=== PATIENT | male | born 1955 | race Caucasian/White ===

== ENCOUNTER 2022-06-15 10:28 | Outpatient (REF) | payer SELFPAY ==
[2022-06-15 10:43] LABS: MANUAL DIFF FLAG NO
[2022-06-15 10:58] LABS: Basophils Absolute Auto 0.1 X10*3/uL (0.0-0.2); Basophils Percent Auto 0.7 % (0-2); Eosinophils Absolute Auto 0.8 X10*3/uL (0.0-0.4); Eosinophils Percent Auto 9.7 % (0-4); Hematocrit 41.3 % (42.0-52.0); Imm Gran Abs Auto 0.03 X10*3/uL (0.00-0.03); Imm Gran Pct Auto 0.3 % (0.0-0.4); Lymphocytes Absolute Auto 2.9 X10*3/uL (1.2-4.9); Lymphocytes Percent Auto 33.3 % (20-40); Mean Corpuscular HGB Conc 33.9 g/dl (31.0-36.0); Mean Corpuscular Hemoglobin 30.9 pg (27.0-33.0); Mean Corpuscular Volume 91.2 fL (80.0-98.0); Mean Platelet Volume 9.9 fL (9.4-12.4); Monocytes Percent Auto 11.5 % (2-11); Neutrophils Absolute Auto 3.8 x10*3/uL (2.0-8.3); Neutrophils Percent Auto 44.5 % (45-73); Platelet Count 248 X10*3/uL (160-400); Red Blood Count 4.53 X10*6/uL (4.60-5.80); Red Cell Distribution Width 12.6 % (11.0-16.0); White Blood Count 8.6 X10*3/uL (4.8-10.8)
[2022-06-15 11:16] LABS: Alanine Aminotransferase 25 U/L (0-40); Alkaline Phosphatase 71 U/L (39-117); Anion Gap 15 (12-20); Aspartate Amino Transferase 21 U/L (5-37); Bilirubin Direct 0.2 mg/dL (0.0-0.5); Bilirubin Total 0.5 mg/dL (0.0-1.0); Blood Urea Nitrogen 15 mg/dL (9-16); Calcium 8.5 mg/dL (8.4-10.2); Carbon Dioxide 22 mmol/L (22-29); Chloride 105 mmol/L (96-108); Estimated Glomerular Filt Rate > 60; Glucose Random 101 mg/dL (60-115); Potassium 4.2 mmol/L (3.3-5.1); Sodium 138 mmol/L (135-145); Total Protein 7.1 g/dL (6.5-8.0)
[2022-06-15 11:34] LABS: Appearance Urine CLEAR; Color Urine YELLOW; Glucose Urine UA NEG (NEG); Leukocyte Esterase Urine NEG (NEG); Nitrite Urine NEG (NEG); Specific Gravity - Urine 1.025 (1.005-1.025); Urine Blood NEG (NEG); Urine Ketones NEG (NEG); Urine Protein NEG (NEG-TRACE)
[2022-06-15 11:49] LABS: RBC Urine 0-2 /HPF (0); WBC Urine 0-2 /HPF (0-4)
[2022-06-16 11:07] LABS: Free Prostate Spec Ag 0.2 ng/mL; Percent Free Prostate Spec Ag 29 % (calc) (>25); Prostate Specific Ag Total 0.7 ng/mL (< OR = 4.0)
[2022-06-16 21:18] LABS: Lyme Abs Screen <0.90 index
== END 2022-06-15 10:29 | disposition home or self-care (01) ==
LOC: HO.LNP 10:28
PROVIDERS: Visit Provider Internal Medicine
DX: Z00.00 Encounter for general adult medical examination without abnormal findings (principal); Z12.5 Encounter for screening for malignant neoplasm of prostate; T14.8XXA Other injury of unspecified body region, initial encounter; W57.XXXA Bitten or stung by nonvenomous insect and other nonvenomous arthropods, initial encounter; E78.00 Pure hypercholesterolemia, unspecified
CPT/HCPCS: 80053; 81001; 82248; 84154; 85025; 86617; 86618

== ENCOUNTER 2022-07-03 10:56 | Outpatient (REF) | payer BC, SELFPAY ==
[2022-07-03 11:30] LABS: Cholesterol 206 mg/dL; HDL Cholesterol 38 mg/dL; LDL Cholesterol Calculated 135 mg/dl; Triglycerides 166 mg/dL
[2022-07-03 12:37] LABS: Reflex LDLD? No
== END 2022-07-03 10:57 | disposition home or self-care (01) ==
LOC: HO.LNP 10:56
PROVIDERS: Visit Provider Internal Medicine
DX: E78.00 Pure hypercholesterolemia, unspecified (principal)
CPT/HCPCS: 80061

== ENCOUNTER 2023-08-27 11:23 | Outpatient (REF) | payer BC, SELFPAY ==
[2023-08-27 11:27] LABS: MANUAL DIFF FLAG NO
[2023-08-27 12:10] LABS: Basophils Absolute Auto 0.1 X10*3/uL (0.0-0.2); Basophils Percent Auto 0.6 % (0-2); Eosinophils Absolute Auto 0.5 X10*3/uL (0.0-0.4); Eosinophils Percent Auto 5.5 % (0-4); Hematocrit 43.3 % (42.0-52.0); Hemoglobin 14.8 g/dl (14.0-18.0); Imm Gran Abs Auto 0.02 X10*3/uL (0.00-0.03); Imm Gran Pct Auto 0.2 % (0.0-0.4); Lymphocytes Absolute Auto 2.4 X10*3/uL (1.2-4.9); Mean Corpuscular HGB Conc 34.2 g/dl (31.0-36.0); Mean Corpuscular Hemoglobin 32.3 pg (27.0-33.0); Mean Corpuscular Volume 94.5 fL (80.0-98.0); Monocytes Absolute Auto 1.1 X10*3/uL (0.1-1.2); Monocytes Percent Auto 12.7 % (2-11); Neutrophils Absolute Auto 4.8 x10*3/uL (2.0-8.3); Platelet Count 242 X10*3/uL (160-400); Red Blood Count 4.58 X10*6/uL (4.60-5.80); Red Cell Distribution Width 12.5 % (11.0-16.0)
[2023-08-27 12:11] LABS: Appearance Urine Clear; Color Urine Yellow; Glucose Urine UA Negative (Negative); Leukocyte Esterase Urine Negative (Negative); Nitrite Urine Negative (Negative); Specific Gravity - Urine 1.015 (1.005-1.025); Urine Blood Negative (Negative); Urine Ketones Negative (Negative); Urine Protein Negative (Neg-Trace)
[2023-08-27 12:22] LABS: Bacteria Urine None Seen (None Seen); Hyaline Casts Urine 0-2 /LPF (0-2); RBC Urine 0-2 /HPF (0-2); Squamous Epithelial Cell Urine 0-2 /HPF (0-2); WBC Urine 0-5 /HPF (0-5)
[2023-08-27 12:30] LABS: Alanine Aminotransferase 27 U/L (0-40); Albumin Level 4.2 g/dL (3.5-5.0); Alkaline Phosphatase 70 U/L (39-117); Anion Gap 12 (12-20); Aspartate Amino Transferase 24 U/L (5-37); Bilirubin Total 0.5 mg/dL (0.0-1.0); Blood Urea Nitrogen 12 mg/dL (9-16); Calcium 9.4 mg/dL (8.4-10.2); Carbon Dioxide 26 mmol/L (22-29); Chloride 104 mmol/L (96-108); Cholesterol 176 mg/dL (<200); Estimated Glomerular Filt Rate > 60; Glucose Fasting 99 mg/dL (60-99); HDL Cholesterol 41 mg/dL (>40); LDL Cholesterol Calculated 113 mg/dL (<100); Potassium 4.2 mmol/L (3.3-5.1); Sodium 138 mmol/L (135-145); Total Protein 7.7 g/dL (6.5-8.0); Triglycerides 112 mg/dL (<150)
[2023-08-27 12:54] LABS: PSA,Total (Free>4and<10) 0.97 ng/mL (0.00-4.00)
== END 2023-08-27 11:24 | disposition home or self-care (01) ==
LOC: HO.LNP 11:23
PROVIDERS: Visit Provider Internal Medicine
DX: Z00.00 Encounter for general adult medical examination without abnormal findings (principal); E78.00 Pure hypercholesterolemia, unspecified; N40.0 Benign prostatic hyperplasia without lower urinary tract symptoms; Z12.5 Encounter for screening for malignant neoplasm of prostate
CPT/HCPCS: 80053; 80061; 81001; 84153; 85025

== ENCOUNTER 2023-11-26 15:43 | Outpatient (REF) | payer BC, SELFPAY ==
--- NOTE | ~2023-11-26 | XR_ITS ---
EXAMINATION: XR CHEST CLINICAL INFORMATION: Tachycardia. COMPARISON: None available. TECHNIQUE: 3 views of the chest. FINDINGS: Degenerative changes in the thoracic spine. Heart size is normal. No pleural effusion. There is no gross pneumothorax. Mild prominence of the central hilar regions, left greater than right, likely vascular. XR/XR chest 2V IMPRESSION: 1. Mild prominence of the central hilar regions, left greater than right, likely vascular. Direct correlation with prior images is recommended and if prior images are provided, an addendum will be dictated. 2. In the absence of prior images, correlation with clinical exam recommended to determine further management including possible additional imaging with noncontrast enhanced CT scan.
[2023-11-26 16:11] LABS: MANUAL DIFF FLAG NO
[2023-11-26 16:26] LABS: Basophils Absolute Auto 0.1 X10*3/uL (0.0-0.2); Basophils Percent Auto 0.8 % (0-2); Eosinophils Absolute Auto 0.4 X10*3/uL (0.0-0.4); Eosinophils Percent Auto 4.6 % (0-4); Hematocrit 41.5 % (42.0-52.0); Imm Gran Abs Auto 0.02 X10*3/uL (0.00-0.03); Imm Gran Pct Auto 0.2 % (0.0-0.4); Lymphocytes Absolute Auto 2.6 X10*3/uL (1.2-4.9); Lymphocytes Percent Auto 29.5 % (20-40); Mean Corpuscular HGB Conc 33.7 g/dl (31.0-36.0); Mean Corpuscular Hemoglobin 30.6 pg (27.0-33.0); Mean Corpuscular Volume 90.8 fL (80.0-98.0); Mean Platelet Volume 9.5 fL (9.4-12.4); Monocytes Absolute Auto 0.7 X10*3/uL (0.1-1.2); Monocytes Percent Auto 8.1 % (2-11); Neutrophils Percent Auto 56.8 % (45-73); Platelet Count 366 X10*3/uL (160-400); Red Blood Count 4.57 X10*6/uL (4.60-5.80); Red Cell Distribution Width 12.7 % (11.0-16.0); White Blood Count 8.8 X10*3/uL (4.8-10.8)
[2023-11-26 17:04] LABS: C Reactive Protein < 0.10 mg/dL (< or = 0.50)
[2023-11-26 17:13] LABS: Erythrocyte Sedimentation Rate 17 MM/HR (0-15)
[2023-11-26 17:20] LABS: Thyroid Stimulating Hormone 1.68 uIU/mL (0.32-4.0)
== END 2023-11-26 15:44 | disposition home or self-care (01) ==
LOC: HO.LAB 15:43
PROVIDERS: PCP Internal Medicine; Visit Provider Internal Medicine
DX: R00.0 Tachycardia, unspecified (principal); R61 Generalized hyperhidrosis
CPT/HCPCS: 36415; 71046; 84443; 85025; 85652; 86140; 87040

== ENCOUNTER 2023-12-07 14:46 | Outpatient (REF) | payer BC, SELFPAY ==
[2023-12-08 06:07] LABS: HIV AB/AG Nonreactive (Nonreactive); HIV Num 1 0.06 S/CO (0.00-0.99)
[2023-12-10 09:04] LABS: TS Negative Control Passed; TS Panel A 0; TS Panel B 0; TS Positive Control Passed; TSpotTB Negative (Negative)
== END 2023-12-07 14:47 | disposition home or self-care (01) ==
LOC: HO.LAB 14:46
PROVIDERS: PCP Internal Medicine; Visit Provider Internal Medicine
DX: Z11.1 Encounter for screening for respiratory tuberculosis (principal); Z11.4 Encounter for screening for human immunodeficiency virus [HIV]; R61 Generalized hyperhidrosis
CPT/HCPCS: 36415; 86481; 87389

== ENCOUNTER → 2023-12-10 09:22 | Outpatient (BNVA) | payer SELFPAY | PROVIDERS: PCP Internal Medicine; Visit Provider Internal Medicine | DX: Z02.79 Encounter for issue of other medical certificate (principal) ==

== ENCOUNTER → 2024-01-14 08:05 | Outpatient (REF) | payer BC, SELFPAY ==
--- NOTE | ~2024-01-14 | US_ITS ---
EXAMINATION: US ABDOMEN LIMITED CLINICAL INFORMATION: Ascites. COMPARISON: None available. TECHNIQUE: Real-time imaging of the bilateral upper and lower quadrants of the abdomen. FINDINGS: No ascites is seen in the right upper quadrant, right lower quadrant, left lower quadrant and left upper quadrant. US/US abdomen limited IMPRESSION: No ascites.
--- NOTE | 2024-01-14 08:10 | CA_ITS ---
Transthoracic Echocardiogram Patient (Last, First, Middle): Khris Carter Edward Gender: Male Date of : 1955 Age: 68 Procedure Date: 01/14/2024 Procedure Type: Transthoracic Echocardiogram Location: OP Height: 175.26 cm Weight: 72.58 kg BSA: 1.88 m2 Heart Rate: 88 bpm BP: 105 / 70 mmHg Grip Assembler: LISA Referring MD: Gil Estrella MD Symptoms: TACHYCARDIA Study Quality: Fair ECG Rhythm: Sinus Conclusions: - Normal left ventricular cavity size. There is normal left ventricular wall thickness. The left ventricular systolic function is borderline reduced. The visually estimated ejection fraction is between 45-50%. - The basal inferior segment is akinetic. Findings Left Ventricle Normal left ventricular cavity size. There is normal left ventricular wall thickness. The left ventricular systolic function is borderline reduced. The visually estimated ejection fraction is between 45-50%. There is evidence of regional wall motion abnormalities. Diastolic function is normal for age. Reduced global longitudinal strain -14.5 %. Wall Motion Rest Echo Findings The basal inferior segment is akinetic. Right Ventricle Normal right ventricular cavity size and systolic function. Atria Both atria are normal in size. Aortic Valve Normal aortic valve structure and function. There is no aortic valve stenosis. There is no aortic valve regurgitation. Mitral Valve Normal mitral valve structure and function. There is no mitral valve regurgitation. There is no mitral valve stenosis. Pulmonic Valve The pulmonic valve is likely normal. Tricuspid Valve Normal tricuspid valve structure and function. There is no tricuspid valve regurgitation. Tricuspid regurgitation envelope is inadequate for calculation of right ventricular systolic pressure. Normal right atrial pressure. Great Vessels All visible segments of the aorta are normal in size. The visualized portions of the pulmonary artery and branches are normal. Venous The inferior vena cava is normal in size and collapses greater than 50% with inspiration. Pericardium/Pleural Prominent epicardial adipose tissue noted. There is no evidence of pericardial effusion. Prior Study Comparison No prior study available for comparison. Measurements 2D Linear Measurements IVSd: 0.71 0.6-0.9/0.6-1.0 cm LVIDd: 4.62 3.9-5.3/4.2-5.9 cm LVIDd Index: 2.46 2.4-3.2/2.2-3.1 cm/m2 LVIDs: 3.34 2.0-3.6 cm LVPWd: 0.86 0.7-1.1 cm LA Diam: 3.50 2.7-3.8/3.0-4.0 cm LAIDs Index: 1.86 1.5-2.3 cm/m2 LV Mass: 143.51 67-162/88-224 g LV Mass Index: 76.34 43-95/49-115 g/m2 LVOT Diam: 1.90 3.0+(-)1.3 cm 2D Systolic Function EF 4C: 47.40 >55% EF 2C: 48.30 >55% EF BiP: 47.00 >55% Mitral Valve MV Pk E: 0.67 MV PK A: 0.84 MV Decel Time: 97.00 E/A: 0.80 E'Lateral: 10.30 E'Medial: 6.96 E/E' Med: 9.60 E/E' Lat: 6.50 PHT: 28.00 MVA PHT: 7.86 Decel Jones: 6.88 Aortic Valve AoV Pk Tripp: 1.34 AoV Mn Tripp: 0.95 AoV VTI: 0.29 AoV Pk Grad: 7.00 Aov Mn Grad: 4.00 SEAN Cont.VTI: 2.00 LVOT LVOT Pk Tripp: 1.01 LVOT Mn Tripp: 0.67 LVOT VTI: 0.20 LVOT Pk Grad: 4.00 LVOT Mn Grad: 2.00 LVOT Diam: 1.90 LVOT Area: 2.84 Diastolic Function MV Pk E: 0.67 MV Pk A: 0.84 E/A: 0.80 E'Medial: 6.96 E/E' Med: 9.60 E' Laterial: 10.30 E/E' Lat: 6.50 Right Ventricle TAPSE (mm): 22.20 TVS' Tripp: 9.46 Tricuspid Valve TR Pk Tripp: 1.69 TR Pk Grad: 11.00 RA Press: 3.00 RVSP: 14.00 Great Vessels Aorta Sinus of Valsalva: 3.00 2.0-3.5 cm Ao Asc: 3.00 2.1-3.4 cm Pulmonary Valve PV Pk Tripp: 1.03 Peak PV Grad: 4.00 Updated in Other Vendor System with Status of Final Duncan Ruiz MD electronically signed on 01/14/2024 11:38:08 AM with status of Final
== END ==
LOC: HO.CARD 08:05
PROVIDERS: PCP Internal Medicine; Visit Provider Internal Medicine
DX: R18.8 Other ascites (principal); R00.0 Tachycardia, unspecified
CPT/HCPCS: 76705; 93306; 93356

== ENCOUNTER → 2024-01-14 08:10 | Outpatient (BNV) | payer BC, SELFPAY | PROVIDERS: PCP Internal Medicine; Visit Provider Internal Medicine Cardiovascular Disease | DX: R00.0 Tachycardia, unspecified (principal) | CPT/HCPCS: 93306; 93356 ==

== ENCOUNTER 2024-03-17 07:29 | Outpatient (REF) | payer BC, SELFPAY ==
--- NOTE | ~2024-03-17 | CT_ITS ---
EXAMINATION: CT CHEST WITHOUT CONTRAST CLINICAL INFORMATION: Chest x-ray for tachycardia identifies hilar prominence, right more than left. COMPARISON: Chest x-ray 11/26/2023. TECHNIQUE: Multidetector volumetric CT imaging of the chest was done. Axial MIP volume rendering provided. Sagittal and coronal reformatted images were obtained. This CT examination was performed using dose optimization techniques as appropriate, variously including the following: *Automated exposure control *Adjustment of mA and/or kV according to patient size (this includes techniques or standardized protocols for targeted exams where dose is matched to indication/reason for exam; i.e. extremities or head) *Use of iterative reconstruction technique DLP: 175 mGy-cm FINDINGS: COOKING CASING AND DRYING SUPERVISOR: Unremarkable. LUNGS: A smooth solid 3 mm left upper lobe pulmonary nodule (series 5 image [id number]). A smooth, solid 2 mm left lower lobe pulmonary nodule (series 5 image 331). No mass or consolidation. Clear airways. Minor dependent atelectasis. MEDIASTINUM: No mediastinal mass or lymphadenopathy. Specifically, no hilar adenopathy. The pulmonary vessels are normal in appearance on noncontrast CT. Apparent prominence on plain radiography likely artifactual due to patient rotation. No gross cardiac abnormality on non-contrast CT. CORONARY ARTERY CALCIFICATION: Moderate coronary artery disease predominating in the LAD. CAD present, suggest PCP evaluation for ASCVD risk assessment. PLEURA: There is no pleural effusion. No pleural mass or thickening. AXILLA: No lymphadenopathy. UPPER ABDOMEN: Left-sided colonic diverticulosis. OSSEOUS STRUCTURES: Minor degenerative spine disease. CT/CT chest wo IV con IMPRESSION: 1. Coronary artery disease. Suggest PCP evaluation. 2. Pulmonary vasculature normal. 3. No mass or adenopathy. 4. Incidental less than 6 mm pulmonary nodules. No follow up indicated. Fleischner guidelines were followed.
== END 2024-03-17 07:30 | disposition home or self-care (01) ==
LOC: HO.CT 07:29
PROVIDERS: PCP Internal Medicine; Visit Provider Internal Medicine
DX: R93.89 Abnormal findings on diagnostic imaging of other specified body structures (principal)
CPT/HCPCS: 71250

== ENCOUNTER 2024-07-03 08:30 | Outpatient (AMB) | payer BC, SELFPAY ==
--- NOTE | 2024-07-03 08:34 | A.OFFVIS_ITS ---
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 A recent CT scan had shown moderate coronary artery calcification, mainly the LAD. This led to Cardiology referral. Patient states he does not have any cardiac issues incl uding coronary disease or myocardial infarction or cardiomyopathy or in fact anything cardiac related. He states that he gets chest pains in the left chest, which feel like a sharp pain lasting for a few seconds but that has been going on for years. Nonexertional happens mostly at rest. Otherwise, he states he eats a lot of junk foods like German fries very regularly. In fact he was doing that for lunch almost daily. Not a known diabetic or hypertensive. Nonsmoker. [facility] Medical History (Updated 07/03/24 @ 08:54 by Alfredo Stephens MD) Atherosclerotic cardiovascular disease Asthma Family History (Updated 07/03/24 @ 08:45 by Nicole Garcia) Mother Cancer Father Heart problem Social History (Updated 07/03/24 @ 08:46 by Nicole Garcia) Alcohol intake: former Patient Tobacco Use Status: Never used Tobacco Review of Systems Const Denies weakness ENT Denies dizziness Card Reports chest pain, Denies chest pain with activity, Denies syncope, Denies rapid heart rate, Denies pedal edema, Denies edema, Denies leg edema, Denies lightheadedness, Denies palpitations, Reports dyspnea, Denies dyspnea on exertion and Denies orthopnea Resp Denies cough, Reports dyspnea and Denies dyspnea on exertion GI Denies hematochezia and Denies change in stool character Musc Denies abnormal gait, Denies muscle cramps, Denies muscle weakness, Denies numbness, Denies radiating pain into limb and Denies tingling Neuro Denies abnormal gait, Denies dizziness, Denies syncope, Denies numbness, Denies tingling and Denies weakness Endo Denies palpitations Physical Exam Vital Signs: Last Vital Signs Pulse 85 07/03/24 08:35 BP 118/60 07/03/24 08:35 BMI result Body Mass Index 22.8 Const General: comfortable and no acute distress Orientation/consciousness: patient oriented x3 HEENT Other: Unremarkable Head: Yes normal to inspection Neck Neck: Yes normal visual inspection Chest Chest palpation & inspection: normal inspection of the chest Resp Auscultation: clear to auscultation bilaterally Cardio Palpation: normal PMI Heart sounds: S1 normal heart sound present, S2 normal heart sound present, no gallops, no murmurs and no rubs GI Palpation (GI): Soft to palpation Back/Spine/Pelvis Other: unremarkable Skin General skin exam: no rashes or lesions noted Neuro General: patient oriented x3 Extrem General: Yes normal to inspection Psych Mental Status: mental status grossly normal Office Procedures EKG Details: EKG with underlying sinus rhythm at 85/Min; no significant ST-T changes and otherwise unremarkable[place] [id number], Complete Assessment & Plan Assessment & Plan (1) Atherosclerotic cardiovascular disease: Code(s): I25.10 - Atherosclerotic heart disease of [place] coronary artery without angina pectoris Category: Medical Plan Pertinent studies reviewed. Chest CT scan reported have moderate coronary artery calcification, predominantly in the LAD. Echocardiogram with mildly reduced LVEF, 45-50% and description of basal inferior akinesis. Overall, coronary disease, mild reduced LVEF, atypical chest pain. Recommend an exercise stress perfusion imaging study for further evaluation. With regard to medications, he states he is taking low-dose aspirin. Recommend adding statins. He believes he has had some muscle aches many years ago but nothing recently. Can try atorvastatin. If any issues, we will switch to another type of statin. Follow-up after testing. Orders: Orders CA stress test Today I25.10 - Atherosclerotic heart disease of [place] coronary artery without angina pectoris, R07.2 - Precordial pain NM cardiolite stress test Today I25.10 - Atherosclerotic heart disease of [place] coronary artery without angina pectoris, R07.2 - Precordial pain Medications: New atorvastatin 20 mg PO QPM 90 tabs 3RF Coding Level of Care Code New Pt Level 4 (72427) Diagnoses Atherosclerotic cardiovascular disease I25.10 CPT Codes EKG - CPT: 63242-Glnuhuoiuvynzjgiz, Complete ([id number])
[2024-07-03 08:35] VITALS: BP 118/60; PULSE 85; BMI 22.8
== END 2024-07-03 09:11 | disposition home or self-care (01) ==
PROVIDERS: PCP Internal Medicine; Visit Provider Internal Medicine
DX: I25.10 Atherosclerotic heart disease of native coronary artery without angina pectoris (principal)
CPT/HCPCS: 93010; 99204

== ENCOUNTER → 2024-07-03 08:30 | Outpatient (BNVA) | payer BC, SELFPAY | PROVIDERS: PCP Internal Medicine; Visit Provider Internal Medicine | DX: I25.10 Atherosclerotic heart disease of native coronary artery without angina pectoris (principal); Z79.82 Long term (current) use of aspirin | CPT/HCPCS: 93005 ==

== ENCOUNTER → 2024-08-07 09:00 | Outpatient (REF) | payer BC, SELFPAY ==
--- NOTE | ~2024-08-07 | NM_ITS ---
EXERCISE MYOCARDIAL PERFUSION STUDY INDICATION: Precordial chest pain to evaluate for myocardial ischemia TECHNIQUE: The patient was brought in for an exercise perfusion study on 08/07/2024. Patient performed exercise as per Berry protocol and was injected 25 mCi of sestamibi once target heart rate was achieved. Images were obtained using the SPECT gamma camera interlaced with the gating device. Images were obtained in supine position. Resting perfusion study was performed on 08/22/2024. Patient was administered 25 mCi of sestamibi intravenously at rest. Images were then obtained in supine position. Images obtained without without CT attenuation. Total DLP 90 mGy-cm Images were processed with the software and compared side to side in short axis, horizontal long axis and vertical long axis views. FINDINGS: Raw images were reviewed The stress perfusion study showed both attenuated as well as nonattenuated corrected images show normal uptake of radiotracer in all segments of the LV myocardium. The gated study shows normal LV systolic function with calculated LVEF of 73%. LV cavity is normal in in size. The gated study shows normal systolic wall thickening and contraction of segments. Resting study shows no change in perfusion pattern compared to stress perfusion study. Gating at rest reveals normal systolic wall motion with ejection fraction at 72%. The findings are consistent with normal myocardial perfusion. NM/NM cardiolite stress test IMPRESSION: 1. Myocardial perfusion imaging study shows normal myocardial perfusion. 2. Gated LVEF is 73%. 3. Transient ischemic dilatation not present. EKG revealed negative for ischemia. Electronically signed by: Mike Tobin MD 08/22/2024 04:22 PM EDT
--- NOTE | 2024-08-07 09:04 | CA_ITS ---
Acquisition Time: 2024-08-07 09:34:22 Total Exercise Time: 00:07:00 Test Indications: CHEST PAIN Medications: Protocol: SOBIA Max HR: 141 BPM 92% of Pred: 153 BPM Max BP: 142/068 mmHG Max Work Load: 8.5 METS Exercise stress test exercise 7 min of Sobia protocol achieving 92% MPHR, without anginal symptoms, without arrhythmias, with normotensive response to exercise, without EKG changes. Nuclear images pending. Test reviewed with Dr. Ruiz Referred By: Alfredo Stephens Overread By: Carol Graff
== END ==
LOC: HO.CARD 09:00
PROVIDERS: PCP Internal Medicine; Visit Provider Internal Medicine
DX: R07.2 Precordial pain (principal); I25.10 Atherosclerotic heart disease of native coronary artery without angina pectoris
CPT/HCPCS: 78452; 93017; A9500

== ENCOUNTER → 2024-08-07 09:04 | Outpatient (BNV) | payer BC, SELFPAY | PROVIDERS: PCP Internal Medicine; Visit Provider Nurse Practitioner | DX: R07.2 Precordial pain (principal) | CPT/HCPCS: 78452; 93016; 93018 ==

== ENCOUNTER 2024-08-09 08:05 | Outpatient (AMB) | payer BC, SELFPAY ==
--- NOTE | 2024-08-09 08:09 | A.OFFVIS_ITS ---
Intake Visit Reasons: prostatism Intake Note: New Patient presents for initial visit for urinary issues Urology Medications: none Blood Thinner: aspirin Antibiotic allergies: Penicillins PVR: 38ml's Cork Tipper Required: No Accompanied by: Self / Same As Patient Allergies Penicillins Allergy (Severe, Verified 08/09/24 08:27) Wheezing HPI Comments Details: Khris is a very pleasant 69-year-old male patient of Dr. Estrella. He has a past medical history of ACD and asthma. He presents to the office today as a new patient for ongoing lower urinary tract symptoms he has been experiencing. In discussion with the patient today he reports noting over the last 3 years he has been having issues with feeling of incomplete bladder emptying and episodes of nocturia. He reports having followed up with his PCP at which time he was started on Flomax over a year ago and did feel this was helpful however felt he had side effects to the medication. He does not recall the side effects however knows that he did not feel good. He continues to report episodes of nocturia anywhere between 3-7 times per night. Also reports feeling at times he has incomplete bladder emptying. In office urinalysis results reviewed with the patient today. PVR 38 mL. In review of patient's chart it appears PSA 08/30 1.0. He discusses having had a sleep study a few years ago and did not have sleep apnea. He otherwise denies hematuria, dysuria, foul smelling urine, changes to urinary stream, flank pain, fever, and or chills. We discussed at length potential causes for lower urinary tract symptoms patient is experiencing. Discussed obtaining retroperitoneal ultrasound for further assessment evaluation. MINNIE offered however deferred. He discusses having followed up with Cardiology recently and is undergoing further workup regarding his coronary artery disease. He otherwise offers no other issues or concerns at this time. [facility], [facility] Medical History Atherosclerotic cardiovascular disease Asthma Family History Mother Cancer Father Heart problem Social History Alcohol intake: former Patient Tobacco Use Status: Never used Tobacco Review of Systems Const All systems reviewed & are unremarkable except as noted in HPI and below Physical Exam Const General: cooperative, healthy appearing, comfortable, no acute distress, well developed, alert and awake Orientation/consciousness: patient oriented x3 Limitations: no limitations HEENT Head: Yes normal to inspection, Yes normocephalic and Yes atraumatic Ears: hearing grossly normal bilaterally Eyes General: appearance normal, both eyes and all related structures Neck Neck: Yes normal visual inspection and Yes trachea midline Chest Chest palpation & inspection: normal inspection of the chest Resp Effort & Inspection: normal respiratory effort and able to speak in complete sentences Cardio Rate: regular rate GI Inspection: Yes normal to inspection General: Yes no CVA tenderness Back/Spine/Pelvis Back: no CVA tenderness Skin General skin exam: no rashes or lesions noted Neuro General: patient oriented x3 Extrem General: Yes normal to inspection Psych Appearance: grossly normal and well kempt Mental Status: mental status grossly normal Speech and movement: Normal speech and movement present and Clear speech present Affect: normal affect Attitude: cooperative Thought process: Normal thought process present Thought content: Normal thought content present Insight: Fair insight present (Psych) Judgement: Fair judgement present (Psych) Office Procedures Post Void Residual Post Residual Void Post Void Residual (PVR): 38 [id number]-[id number] Void Residual by ultrasound Results AMB Urinalysis, Automated UA Leukoctes 0 Corrine/uL Last Edit by Nemesio Kline on 08/09/24 08:29 UA Nitrite Last Edit by Nemesio Kline on 08/09/24 08:29 UA Urobilinogen 0.2 mg/dL Last Edit by Nemesio Kline on 08/09/24 08:29 UA Protein 0 mg/dL Last Edit by Nemesio Kline on 08/09/24 08:29 UA pH 6.0 Last Edit by Nemesio Kline on 08/09/24 08:29 UA Blood 0 Chandrakant/uL Last Edit by Nemesio Kline on 08/09/24 08:29 UA Specific [place] 1.015 Last Edit by Nemesio Kline on 08/09/24 08:29 UA Ketone Last Edit by Nemesio Kline on 08/09/24 08:29 UA Bilirubin 0 mg/dL Last Edit by Nemesio Kline on 08/09/24 08:29 UA Glucose 0 mg/dL Last Edit by Nemesio Kline on 08/09/24 08:29 Results Reviewed Results Reviewed: Laboratory Last Values Urine pH (Auto) 6.0 08/09/24 08:28 Specific [place] (Auto) 1.015 08/09/24 08:28 Urine Protein (Auto) 0 mg/dL 08/09/24 08:28 Glucose (UA)(Auto) 0 mg/dL 08/09/24 08:28 Urine Blood (Auto) 0 Chandrakant/uL 08/09/24 08:28 Urine Bilirubin (Auto) 0 mg/dL 08/09/24 08:28 Urine Urobilinogen (Auto) 0.2 mg/dL 08/09/24 08:28 Leukocyte Esterase (Auto) 0 Corrine/uL 08/09/24 08:28 Assessment & Plan Assessment & Plan (1) Nocturia: Code(s): R35.1 - Nocturia Category: Medical (2) Feeling of incomplete bladder emptying: Code(s): R39.14 - Feeling of incomplete bladder emptying Category: Medical Plan In office urinalysis results reviewed with the patient today; as noted above. PVR 38 mL. Discussed obtaining retroperitoneal ultrasound for further assessment evaluation. Will obtain redraw of PSA Discussed at length potential causes for lower urinary tract symptoms patient was experiencing; as noted above. We discussed lifestyle modifications to assist with lower urinary tract symptoms patient is experiencing such as limiting fluids 2-3 hours prior to bed and attempt double voiding. Start alfuzosin as discussed and prescribed. Follow-up in 1-3 months with imaging and lab to be completed prior; or sooner with any issues, concerns, and or questions. Orders: Orders AMB Urinalysis Automated Today Z13.9 - Encounter for screening, unspecified AMB Post Void Residual by ultrasound Today Z13.9 - Encounter for screening, unspecified US retroperitoneal comp Today R35.1 - Nocturia, R39.14 - Feeling of incomplete bladder emptying Prostate Specific Antigen Today N40.0 - Benign prostatic hyperplasia without lower urinary tract symptoms Medications: New alfuzosin ER Take before bedtime 10 mg PO BEDTIME 30 days 30 tabs 2RF N32.0 - Bladder- neck obstruction, N40.1 - Benign prostatic hyperplasia with lower urinary tract symptoms, R33.9 - Retention of urine, unspecified, R35.1 - Nocturia, R39.12 - Poor urinary stream Patient Instructions: The patient had an opportunity to ask questions regarding the treatment plan. All questions were answered. Physical exam, labs, and imaging were discussed and reviewed in detail. As well as risks, benefits, and discussion of treatment choices. No major barriers to understanding were identified. The patient expressed understanding and agreement with the above treatment plan. The patient was made aware they should contact our office by phone for worsening of their current condition, the appearance of new symptoms, or with any que stions or concerns. Compliance is encouraged with any medications and follow up testing that is ordered. It is a privilege to be allowed the opportunity to participate in? your urological care.? Again, if you have any questions or concerns If you have any questions or concerns please do not hesitate to contact me. The office is [phone]. This note is constructed using voice recognition software. While every effort has been made to ensure accuracy fire control mechanic errors may have been included. Yours sincerely, ANIYAH Boothe Coding Level of Care Code New Pt Level 4 (22193) Diagnoses Nocturia R35.1 Feeling of incomplete bladder emptying R39.14 CPT Codes Post Residual Void - PVR CPT Code: 28214-Vfes Void Residual by ultrasound ([id number])
== END 2024-08-09 08:46 | disposition home or self-care (01) ==
PROVIDERS: PCP Internal Medicine; Visit Provider Nurse Practitioner Family
DX: R35.1 Nocturia (principal); R39.14 Feeling of incomplete bladder emptying; Z13.9 Encounter for screening, unspecified
CPT/HCPCS: 99204

== ENCOUNTER → 2024-08-09 08:05 | Outpatient (BNVA) | payer BC, SELFPAY | PROVIDERS: PCP Internal Medicine; Visit Provider Nurse Practitioner Family | DX: N40.1 Benign prostatic hyperplasia with lower urinary tract symptoms (principal); R35.1 Nocturia; R39.14 Feeling of incomplete bladder emptying | CPT/HCPCS: 51798; 81003 ==

== ENCOUNTER 2024-09-05 09:02 | Outpatient (REF) | payer BC, SELFPAY | END 2024-09-05 09:03 | disposition home or self-care (01) | LOC: HO.HMGCX 09:02 | PROVIDERS: PCP Internal Medicine; Visit Provider Nurse Practitioner Family | DX: R35.1 Nocturia (principal); R39.14 Feeling of incomplete bladder emptying | CPT/HCPCS: 76770 ==

== ENCOUNTER 2024-09-21 07:56 | Outpatient (REF) | payer BC, SELFPAY ==
[2024-09-21 10:49] LABS: Prostate Specific Antigen 0.69 ng/mL (<0.05-4.0)
== END 2024-09-21 07:57 | disposition home or self-care (01) ==
LOC: HO.HMGCLDS 07:56
PROVIDERS: PCP Internal Medicine; Visit Provider Nurse Practitioner Family
DX: N40.0 Benign prostatic hyperplasia without lower urinary tract symptoms (principal); Z12.5 Encounter for screening for malignant neoplasm of prostate
CPT/HCPCS: 36415; 84153

== ENCOUNTER 2024-09-25 15:27 | Outpatient (AMB) | payer BC, SELFPAY ==
[2024-09-25 15:46] VITALS: BP 100/62; PULSE 99; BMI 23.6
--- NOTE | 2024-09-25 15:46 | A.OFFVIS_ITS ---
Vital Signs 09/25/24 15:46 Height 5 ft 9 in Weight 160 lb 0.889 oz BMI 23.6 BP 100/62 Blood Pressure Location Lt brachial Position Sitting Pulse 99 Pulse Source Pulse Oximeter Intake Visit Reasons: f/up stress HS Wafer Batter Mixer Required: No Allergies Penicillins Allergy (Severe, Verified 09/25/24 15:48) Wheezing Medication List - Last Reconciled 09/25/24 by Mellissa Fields, BARRERA-C alfuzosin ER 10 mg PO BEDTIME 30 days aspirin (Adult Aspirin Regimen) 81 mg PO DAILY atorvastatin 20 mg PO QPM HPI HPI f/up stress HS: Details: Khris is a 69-year-old male with past medical history of asthma who was referred to Cardiology due to recent finding moderate coronary artery calcification on CT scan. A prior echo showed a mildly reduced EF and basal inferior wall motion abnormality. Underwent a nuclear stress test which was normal and he now presents for follow-up. Today he reports he has been doing well overall. He does describe a tapping type sensation in his left lower chest that has been intermittent for years. He says it can happen randomly and last a few seconds and resolve. He is not aware of any aggravating or alleviating factors. No other chest discomfort at rest or with activity. No shortness of breath, PND, orthopnea or edema. No lightheadedness, presyncope, syncope, falls. He reports good activity tolerance. He states his father and aunt had atrial fibrillation. He has significant issues sleeping due to nocturia. He says he can get between 4 and 7 times per night then has difficulty falling asleep. He has no personal concerns for sleep apnea just lack of sleep. He does report daytime sleepiness. He is seeing Urology and trying different medications. [facility] Medical History Atherosclerotic cardiovascular disease Asthma Family History Mother Cancer Father Heart problem Social History Alcohol intake: former Patient Tobacco Use Status: Never used Tobacco Review of Systems Const All systems reviewed & are unremarkable except as noted in HPI and below ENT Denies dizziness Card Details: tapping feeling in his left lower chest region, mildly uncomfortable. Denies chest pain, Denies chest pain at rest, Denies chest pain with activity, Denies rapid heart rate, Denies pedal edema, Denies edema, Denies leg edema, Denies lightheadedness, Denies palpitations, Denies dyspnea, Denies dyspnea on exertion and Denies orthopnea Resp Denies cough, Denies dyspnea and Denies dyspnea on exertion GI Denies hematochezia and Denies change in stool character Musc Denies abnormal gait, Denies limited range of motion, Denies muscle cramps, Denies muscle weakness, Denies numbness, Denies radiating pain into limb, Denies stiffness and Denies tingling Neuro Denies abnormal gait, Denies dizziness, Denies numbness and Denies tingling Endo Denies palpitations Physical Exam Vital Signs: Last Vital Signs Pulse 99 09/25/24 15:46 BP 100/62 09/25/24 15:46 BMI result Body Mass Index 23.6 Const General: cooperative, healthy appearing, comfortable, no acute distress, well developed, alert and awake Orientation/consciousness: patient oriented x3 Limitations: no limitations HEENT Head: Yes normal to inspection, Yes normocephalic and Yes atraumatic Ears: hearing grossly normal bilaterally Eyes General: appearance normal, both eyes and all related structures Neck Neck: Yes normal visual inspection and Yes trachea midline Chest Chest palpation & inspection: normal inspection of the chest Resp Effort & Inspection: normal respiratory effort and able to speak in complete sentences Cardio Rate: regular rate GI Inspection: Yes normal to inspection General: Yes no CVA tenderness Back/Spine/Pelvis Back: no CVA tenderness Skin General skin exam: no rashes or lesions noted Neuro General: patient oriented x3 Extrem General: Yes normal to inspection Psych Appearance: grossly normal and well kempt Mental Status: mental status grossly normal Speech and movement: Normal speech and movement present and Clear speech present Affect: normal affect Attitude: cooperative Thought process: Normal thought process present Thought content: Normal thought content present Insight: Fair insight present (Psych) Judgement: Fair judgement present (Psych) Assessment & Plan Assessment & Plan (1) Atherosclerotic cardiovascular disease: Code(s): I25.10 - Atherosclerotic heart disease of [place] coronary artery without angina pectoris Category: Medical Plan: CT scan of the chest done 03/17/2024 showing moderate coronary artery disease predominantly in the LAD. He had no known history of heart disease. An echocardiogram had been done 01/14/2024 showing EF 45-50%, basal inferior segment akinetic. His EKG done last visit showed normal sinus rhythm, rate 85. He underwent an exercise nuclear stress test on 08/07/2024 with exercise 7 minutes, no anginal symptoms and no EKG changes of ischemia, normal myocardial perfusion imaging. Test results reviewed with him in detail. He has no anginal sounding symptoms at this time. He does feel a tapping sensation in his left lower chest region that occurs randomly, intermittently for the last few years lasting seconds. Unclear if this is heart palpitations or musculoskeletal. With his mildly reduced EF will check a Holter monitor to assess for any arrhythmia, particularly AFib as it does run in his family. Will also check a repeat limited echocardiogram to reassess EF, wall motion. He is currently not on meds for neurohormonal modulation. He is on aspirin and atorvastatin. Finding of nonobstructive coronary disease on CT scan reviewed with him in detail. He needs ongoing risk factor modification. Cardiology follow-up 3 months, sooner if needed. (2) Cardiomyopathy: Code(s): I42.9 - Cardiomyopathy, unspecified Category: Medical Plan: As above. Nonischemic. Rechecking limited echo and checking Holter to assess for any arrhythmia. He does not drink alcohol. He has no concerns about sleep apnea but does have nocturia and is up 4-7 times per night and has difficulty falling asleep. His blood pressure is low today at 100/62. Will hold off on the addition of neurohormonal modulation meds, awaiting repeat echo. (3) Palpitation: Code(s): R00.2 - Palpitations Category: Medical Plan: As above Plan Time spent on chart review, documentation, interview, assessment Orders: Orders CA Echo Limited Today I42.9 - Cardiomyopathy, unspecified ECG 3 day holter monitor Today I42.9 - Cardiomyopathy, unspecified, R00.2 - Palpitations Coding Level of Care Code Est Pt Level 4 (49722) Complex EM visit Add On G2211 Diagnoses Atherosclerotic cardiovascular disease I25.10 Cardiomyopathy I42.9 Palpitation R00.2 Time Spent (min) 30
== END 2024-09-25 16:31 | disposition home or self-care (01) ==
PROVIDERS: PCP Internal Medicine; Visit Provider Nurse Practitioner Family
DX: I25.10 Atherosclerotic heart disease of native coronary artery without angina pectoris (principal); I42.9 Cardiomyopathy, unspecified; R00.2 Palpitations
CPT/HCPCS: 99214

== ENCOUNTER 2024-09-29 07:23 | Outpatient (REF) | payer BC, SELFPAY ==
[2024-09-29 07:43] LABS: MANUAL DIFF FLAG NO
[2024-09-29 07:50] LABS: Basophils Absolute Auto 0.1 X10*3/uL (0.0-0.2); Basophils Percent Auto 0.7 % (0-2); Eosinophils Absolute Auto 0.5 X10*3/uL (0.0-0.4); Eosinophils Percent Auto 7.3 % (0-4); Hematocrit 39.8 % (42.0-52.0); Hemoglobin 14.1 g/dl (14.0-18.0); Imm Gran Abs Auto 0.02 X10*3/uL (0.00-0.03); Imm Gran Pct Auto 0.3 % (0.0-0.4); Lymphocytes Absolute Auto 2.2 X10*3/uL (1.2-4.9); Lymphocytes Percent Auto 31.6 % (20-40); Mean Corpuscular HGB Conc 35.4 g/dl (31.0-36.0); Mean Corpuscular Hemoglobin 32.3 pg (27.0-33.0); Mean Corpuscular Volume 91.1 fL (80.0-98.0); Mean Platelet Volume 8.7 fL (9.4-12.4); Monocytes Absolute Auto 0.8 X10*3/uL (0.1-1.2); Monocytes Percent Auto 11.5 % (2-11); Neutrophils Absolute Auto 3.3 x10*3/uL (2.0-8.3); Neutrophils Percent Auto 48.6 % (45-73); Platelet Count 199 X10*3/uL (160-400); Red Blood Count 4.37 X10*6/uL (4.60-5.80); Red Cell Distribution Width 12.3 % (11.0-16.0); White Blood Count 6.9 X10*3/uL (4.8-10.8)
[2024-09-29 08:03] LABS: Alanine Aminotransferase 28 U/L (0-40); Albumin Level 4.1 g/dL (3.5-5.0); Alkaline Phosphatase 69 U/L (39-117); Anion Gap 11 (12-20); Aspartate Amino Transferase 33 U/L (5-37); Bilirubin Total 0.6 mg/dL (0.0-1.0); Blood Urea Nitrogen 17 mg/dL (9-16); Carbon Dioxide 25 mmol/L (22-29); Chloride 106 mmol/L (96-108); Cholesterol 139 mg/dL (<200); Estimated Glomerular Filt Rate > 60; Glucose Fasting 109 mg/dL (60-99); HDL Cholesterol 39 mg/dL (>40); LDL Cholesterol Calculated 83 mg/dL (<100); Potassium 4.4 mmol/L (3.3-5.1); Sodium 138 mmol/L (135-145); Triglycerides 85 mg/dL (<150)
[2024-09-29 08:29] LABS: PSA,Total (Free>4and<10) 0.75 ng/mL (0.00-4.00)
[2024-09-29 09:07] LABS: Appearance Urine Clear; Color Urine Yellow; Glucose Urine UA Negative (Negative); Leukocyte Esterase Urine Negative (Negative); Nitrite Urine Negative (Negative); PH 6.5 (5.0-9.0); Specific Gravity - Urine 1.015 (1.005-1.025); Urine Blood Negative (Negative); Urine Ketones Negative (Negative); Urine Protein Negative (Neg-Trace)
[2024-09-29 09:13] LABS: Bacteria Urine None Seen (None Seen); Hyaline Casts Urine 0-2 /LPF (0-2); RBC Urine 0-2 /HPF (0-2); Squamous Epithelial Cell Urine 0-2 /HPF (0-2); WBC Urine 0-5 /HPF (0-5)
== END 2024-09-29 07:24 | disposition home or self-care (01) ==
LOC: HO.LAB 07:23
PROVIDERS: PCP Internal Medicine; Visit Provider Internal Medicine
DX: Z00.00 Encounter for general adult medical examination without abnormal findings (principal); E78.00 Pure hypercholesterolemia, unspecified; N40.0 Benign prostatic hyperplasia without lower urinary tract symptoms; Z12.5 Encounter for screening for malignant neoplasm of prostate
CPT/HCPCS: 36415; 80053; 80061; 81001; 84153; 85025

== ENCOUNTER 2024-11-16 15:19 | Outpatient (AMB) | payer BC, SELFPAY ==
--- NOTE | 2024-11-16 15:19 | A.OFFVIS_ITS ---
Intake Visit Reasons: US/PSA Intake Note: Patient presents today for tele visit follow up on: ultrasound and psa lab results * PSA : 0.75 * Imaging Completed: 09/05/24 Urology Medications: Alfuzosin (doesn't think that it is making a difference) Blood Thinner: aspirin Antibiotic allergies: Penicillins [facility] Director Required: No Accompanied by: Self / Same As Patient Allergies Penicillins Allergy (Severe, Verified 11/16/24 15:28) Wheezing Medication List - Last Reconciled 11/16/24 by ANIYAH Boothe alfuzosin ER 10 mg PO BEDTIME 30 days aspirin (Adult Aspirin Regimen) 81 mg PO DAILY atorvastatin 20 mg PO QPM HPI Comments Details: Khris is a very pleasant 69-year-old male patient of Dr. Estrella. He has a past medical history of ACD and asthma. He is being followed up on today via video telehealth. Of note, patient was seen approximately 3 months ago as a new patient for ongoing lower urinary tract symptoms he has been experiencing at which time a retroperitoneal ultrasound and PSA were ordered for further assessment evaluation. The patient was also started on alfuzosin. In discussion with the patient today he discusses at length his reluctancy to taking medication however he does report noting improvement in episodes of nocturia with lifestyle modifications as well as alfuzosin. Recent retroperitoneal ultrasound results reviewed with the patient today. Bilateral kidneys are normal in size, contour, and echogenicity. Bilateral kidneys with no calculi or hydronephrosis. Right kidney with benign mid renal 1.6 cm Bosniak class 1 renal cyst which requires no additional follow-up per radiology report. A small bladder diverticulum is seen measuring a proximally 1.2 cm. Pre void bladder volume is approximately 580 mL. Postvoid bladder volume is approximately 300 mL. The prostate gland is enlarged with a volume of approximately 38 mL. PSAs are as follows: 08/30 1.0, 10/01 0.8 Patient had previously trialed Flomax and did not find this helpful. He would like to continue with lifestyle modifications for his nocturia as he feels limiting fluids has been helpful. He reports previous history of a workup for sleep apnea that was negative. He otherwise denies hematuria, dysuria, foul smelling urine, changes to urinary stream, flank pain, fever, and or chills. We discussed at length potential causes for lower urinary tract symptoms patient is/was experiencing.He otherwise offers no other issues or concerns at this time. [facility] Medical History Atherosclerotic cardiovascular disease Asthma Family History Mother Cancer Father Heart problem Social History Alcohol intake: former Patient Tobacco Use Status: Never used Tobacco Review of Systems Const All systems reviewed & are unremarkable except as noted in HPI and below Physical Exam Const General: cooperative Resp Effort & Inspection: able to speak in complete sentences Psych Appearance: grossly normal Speech and movement: Clear speech present Attitude: cooperative Thought content: Normal thought content present Insight: Fair insight present (Psych) Judgement: Fair judgement present (Psych) Telehealth Telehealth Telehealth Platform: Thotz Location of provider rendering services: practice address Location of patient: address on file Patient Identification confirmed using: Name, : Yes Telehealth method: voice only Patient verbally consented to treatment: Yes Patient verbally consented to billing insurance company: Yes Patient informed of any privacy concerns related to visit: Yes Minutes spent on Phone/Video with Pt.: 15 Results Reviewed Results Reviewed: Date of Service: 09/05/24 EXAMINATION: US RETROPERITONEAL COMPLETE (RENAL) FINDINGS: RIGHT KIDNEY: 11.3 x 5.5 x 5.9 cm (SAG x AP x TRV). The kidney is normal in size, contour, and echogenicity. Renal cortical thickness is normal. No renal calculi or hydronephrosis. A benign mid renal 1.6 cm Bosniak class I renal cyst is noted which requires no additional imaging or follow up. No solid renal masses are seen. LEFT KIDNEY: 11.1 x 5.7 x 7.3 cm (SAG x AP x TRV). The kidney is normal in size, contour, and echogenicity. Renal cortical thickness is normal. No calculi or focal parenchymal lesions. No hydronephrosis. BLADDER: A small bladder diverticulum is seen measuring 1.2 x 0.6 x 1.2 cm prevoid and 2.0 x 0.8 x 1.7 cm post void 4 Bilateral ureteral jets are demonstrated. Prevoid bladder volume is 574 mL. Postvoid bladder volume is 298 mL. PROSTATE GLAND: The prostate gland is enlarged with a volume of 38.1 mL. IMPRESSION: 1. Prostate enlargement with large post void residual. 2. Small bladder diverticulum. 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 Recent PSA results reviewed with the patient today; as noted above. We discussed at length further treatment options to include in office cystoscopy and or urodynamics for further assessment evaluation. Stop alfuzosin Continue with lifestyle modifications to assist with nocturia; such as limiting fluids 2-3 hours prior to bed. We discussed bladder triggers/irritants. We discussed potential causes of bladder diverticulum as well as incomplete bladder emptying. Follow-up in 3 months with PVR; or sooner with any issues, concerns, and or questions. Patient Instructions: The patient had an opportunity to ask questions regarding the treatment plan. All questions were answered. Physical exam, labs, and imaging were discussed and reviewed in detail. As well as risks, benefits, and discussion of treatment choices. No major barriers to understanding were identified. The patient expressed understanding and agreement with the above treatment plan. The patient was made aware they should contact our office by phone for worsening of their current condition, the appearance of new symptoms, or with any questions or concerns. Compliance is encouraged with any medications and follow up testing that is ordered. It is a privilege to be allowed the opportunity to participate in? your urological care.? Again, if you have any questions or concerns If you have any questions or concerns please do not hesitate to contact me. The office is [phone]. This note is constructed using voice recognition software. While every effort has been made to ensure accuracy marketing research coordinator errors may have been included. Yours sincerely, DEANNE Boothe-MARY Coding Level of Care Code Tele Est Pt Level 3 (43900) Diagnoses Diverticulum of bladder N32.3 Enlarged prostate N40.0 Renal cyst N28.1 Nocturia R35.1
== END 2024-11-16 16:04 | disposition home or self-care (01) ==
LOC: HO.HUSH 15:19
PROVIDERS: PCP Internal Medicine; Visit Provider Nurse Practitioner Family
DX: N32.3 Diverticulum of bladder (principal); N40.0 Benign prostatic hyperplasia without lower urinary tract symptoms; N28.1 Cyst of kidney, acquired; R35.1 Nocturia
CPT/HCPCS: 99213

== ENCOUNTER 2024-12-14 13:49 | Outpatient (REF) | payer BC, SELFPAY ==
[2024-12-14 15:04] LABS: Vitamin B12 539 pg/mL (200-900)
== END 2024-12-14 13:50 | disposition home or self-care (01) ==
LOC: HO.LAB 13:49
PROVIDERS: PCP Internal Medicine; Visit Provider Psychiatry & Neurology Neurology
DX: G44.229 Chronic tension-type headache, not intractable (principal)
CPT/HCPCS: 36415; 82607

== ENCOUNTER → 2025-01-11 11:03 | Outpatient (REF) | payer BC, SELFPAY ==
--- NOTE | 2025-01-11 11:07 | CA_ITS ---
Transthoracic Echocardiogram Patient (Last, First, Middle): Khris Carter Edward Gender: Male Date of : 1955 Age: 69 Procedure Date: 01/11/2025 Procedure Type: Transthoracic Echocardiogram Location: OP Height: 175.26 cm Weight: 72.58 kg BSA: 1.88 m2 Heart Rate: bpm BP: 106 / 64 mmHg Analysis Director: PEGGY Referring MD: Mellissa Fields [employer] SUPERVIS[employer] Medicine Physician: Mike Tobin MD Symptoms: I42.9 - Cardiomyopathy, unspecified Study Quality: Adequate with contrast ECG Rhythm: Sinus Conclusions: - Low normal LV ejection fraction of 50-55% with grade 1 diastolic dysfunction Findings Procedure Information Contrast agent, definity, is being given per protocol without apparent complications. Left Ventricle Normal left ventricular cavity size. There is normal left ventricular wall thickness. The left ventricular systolic function is low normal. The visually estimated ejection fraction is between 50-55%. Spectral Doppler is indicative of an impaired relaxation filling pattern. E/E prime ratio is <8, consistent with normal filling pressures. Evidence suggests grade I (mild) diastolic dysfunction. Prior Study Comparison Changes noted compared to prior study dated: 01/14/2024. LV systolic function has marginally improved Measurements 2D Linear Measurements IVSd: 0.88 0.6-0.9/0.6-1.0 cm LVIDd: 4.71 3.9-5.3/4.2-5.9 cm LVIDd Index: 2.51 2.4-3.2/2.2-3.1 cm/m2 LVIDs: 3.18 2.0-3.6 cm LVPWd: 0.82 0.7-1.1 cm LA Diam: 3.00 2.7-3.8/3.0-4.0 cm LAIDs Index: 1.60 1.5-2.3 cm/m2 LV Mass: 164.60 67-162/88-224 g LV Mass Index: 87.55 43-95/49-115 g/m2 LVOT Diam: 2.00 3.0+(-)1.3 cm 2D Systolic Function EF 4C: 46.50 >55% EF 2C: 53.10 >55% EF BiP: 50.70 >55% Mitral Valve MV Pk E: 0.57 MV PK A: 0.95 MV Decel Time: 191.00 E/A: 0.60 E'Lateral: 8.92 E'Medial: 6.85 E/E' Med: 8.30 E/E' Lat: 6.40 PHT: 56.00 MVA PHT: 3.93 Decel Conecuh: 2.97 LVOT LVOT Pk Tripp: 1.01 LVOT Mn Tripp: 0.66 LVOT VTI: 0.19 LVOT Pk Grad: 4.00 LVOT Mn Grad: 2.00 LVOT Diam: 2.00 LVOT Area: 3.14 Diastolic Function MV Pk E: 0.57 MV Pk A: 0.95 E/A: 0.60 E'Medial: 6.85 E/E' Med: 8.30 E' Laterial: 8.92 E/E' Lat: 6.40 Tricuspid Valve RA Press: 3.00 Updated in Other Vendor System with Status of Final Mike Tobin MD electronically signed on 01/11/2025 6:47:06 PM with status of Final
--- OUTSIDE RECORDS SUMMARY | 2025-01-11 13:30 | XMS_ITS ---
Author Organization Gil Estrella MD Address [address] [place] [phone] Care Team Providers Care Clinical Nurse Specialist Name Role Phone Gil Estrella Primary Care Provider [phone] Allergies Allergen (clinical drug ingredient) Drug/Non Drug [...] Estrella MD [address] [place], [place] [phone] 07/31/2024 Gil Estrella Asthma J45.909 ; Myalgia, [...] Up: 3 Months, Reason: Provider Name:Gil arriola, 04/13/2025 07:15:00 AM, [address] [place] [address], [address] [place] [address], [phone], Provider Name:Gil arriola, 04/20/2025 10:00:00 AM, [address] [place] [address], [address] [place] [address], [phone], Provider Name:Gil arriola, 10/12/2025 07:00:00 AM, [address] [place] [address], [address] [place] [address], [phone], Provider Name:Gil arriola, 10/19/2025 09:30:00 AM, [address] [place] [address], [address], [phone], Progress Notes * Khris FERNANDEZDOB:[birth year] (69 yo M)Acc No.[id number]:07/31/2024 Progress Notes Patient:?Khris Fernandez Provider:?Gil Estrella MD :1955???Age:69 Y???Sex:Male Kaz e:07/31/2024 Address:[address] [place] [address] , [facility] [id number] Subjective: * Chief Complaints: * ???2 month * HPI: ???Symptom(s):? patient is a 69 yo male here for 2 month follow up visit, still getting sharp random left chest pain lasting 10 seconds. has still getting coughing in the back of throat feels like a dry spot in back of throat. * ROS:?General/Constitutional:?Denies?Chills.?Denies?Fatigue.?Denies?Fever.?Denies?Headache.?ENT:?Patient denies?decreased sense of smell , any loss of taste , sore throat.?Denies?Sore throat.?Respiratory:?Denies?Cough.?Denies?Shortness of breath at rest.?Denies?Shortness of breath with exertion.?Cardiovascular:?Denies?Chest pain at rest.?Denies?Chest pain with exertion.?Denies?Dizziness.?Denies?Palpitations.?Denies?Shortness of breath.?Gastrointestinal:?Denies?Diarrhea.?Denies?Nausea.?Musculoskeletal:?Patient denies?muscle aches.?Peripheral Vascular:?Patient denies?red and blue toes.? * Medical History:? * Surgical History:? * Hospitalization/Major Diagno stic Procedure:? * Medications:?TakingAtorvasta tin Calcium 20 MG Tablet 1 tablet Orally [...] reviewed and reconciled with the patient * Allergies:?Penicillinyes[All ergies Verified] Objective: * Vitals:?Ht: 68, Wt:158, BMI: 24.02, BP:94/60. * Examination: ???General Examination: ?GENERAL APPEARANCE:? alert, well hydrated, in no distress .?HEAD:? normocephalic.?SKIN:? good turgor.?HEART:? no murmurs, rubs, gallops, regular rate and rhythm.?LUNGS:? no wheezes, rales, rhonchi, good air movement, clear to auscultation bilaterally.? Assessment: * Assessment: 1.?Asthma - J45.909 (Primary )?2.?Myalgia, multiple sites - M79.18?3.?Atypical chest pain - R07.89? Plan: * Treatment: 2.?Myalgia, multiple sites? Notes: will try coenzyme. may need repatha?? 3.?Atypical chest pain? Notes: waiting for stress test in september?? * Immunizations:? Influenza High Dose (Not administered - Refused: Patient decision) * Procedure Codes:? * Preventive Medicine:? ??Immunizations:?Influenza?Have you had a flu shot since the most recent July 09??No patient refused at visit today.? * Follow Up:?3 Months * * Sign off status: Completed true * Provider:?Gil Estrella MD Date:?0 07/31/2024 Generated for [employer] rachana/Arie/eTransmitting on:?01/11/2025 01:30 PM EST History and Physical Notes * [...]
--- OUTSIDE RECORDS SUMMARY | 2025-01-11 13:30 | XMS_ITS ---
Author Organization Gil Estrella MD Address [address] [place], [place] [phone] Care Team Providers Care Glass Loading Equipment Tender Name Role Phone Gil Estrella Primary Care Provider [phone] Results Component Value Reference Range Notes Complete Blood Count Auto Di ff Reviewed date:09/29/2024 04:42:51 PM Interpretation: Performing Lab:[facility], [address] [place] [phone] Notes/Report: White Blood Count 6.9 4.8-10.8 X10*3/uL [...] NRBC Abs Auto 0.000 0.0-0.012 X10*3/uL [facility] [place]. Panel Fa st Reviewed date:09/29/2024 04:43:15 PM Interpretation: Performing Lab:[address] [phone] Notes/Report: Sodium 138 135-145 mmol/L Potassium 4.4 [...] Panel Reviewed date:09/29/2024 04:27:20 PM Interpretation: Performing Lab:[address] [phone] Notes/Report: Triglycerides 85 <150 mg/dL Desirable Triglyceride: [...] (Free>4and<10) Reviewed date:09/29/2024 04:28:20 PM Interpretation: Performing Lab:[address] [phone] Notes/Report: PSA,Total (Free>4and<10) 0.75 0.00-4.00 ng/mL A [...] t Reviewed date:09/29/2024 04:42:27 PM Interpretation: Performing Lab:[facility], [address] [place] [phone] Notes/Report: Urine, Clean Catch Color Urine Yellow Appearance Urine Clear PH 6.5 5.0-9.0 Glucose Urine UA Negative Negative mg/dL Urine Blood Negative Negative Specific Reserve - Urine 1.015 1.005-1.025 Urine Protein Negative [...] Location Date Provider Diagnosis Gil Estrella MD [address] [place] [address] [place] [phone] 09/29/2024 Gil Estrella Blood tests for rout ine general physical examination Z00.00 ; Hypercholesteremia E78.00 and Prostatism N40.0 Assessments Encounter Date Diagnosis (ICD Code) Assessment Notes Treatment Notes Treatment Clinical Notes Section Notes 09/29/2024 Blood tests for routine general physical examination (ICD-10 - Z00.00) 09/29/2024 Hypercholesteremia (ICD-10 - E78.00) 09/29/2024 Prostatism (ICD-10 - N40.0) Plan Of Treatment Next Appt Details Provider Name:Gil arriola, 04/13/2025 07:15:00 AM, [address] [place] [address], [address], [phone], Provider Name:Gil arriola, 04/20/2025 10:00:00 AM, [address] [place] [address], [address], [phone], Provider Name:Gil arriola, 10/12/2025 07:00:00 AM, [address] [place] [address], [address], [phone], Provider Name:Gil arriola, 10/19/2025 09:30:00 AM, [address] [place] [address], [address], [phone], Progress Notes * Khris FERNANDEZDOB:[birth year] (69 yo M)Acc No.[id number]:09/29/2024 Progress Note Patient:?Khris FERNANDEZ Provider:?Gil Estrella MD :1955???Age:69 Y???Sex:Male Kaz e:09/29/2024 Address:[address] [place], [place] [phone] Subjective: * Chief Complaints: * ???1. Yearly fasting labs. * Medical History:? Objective: * Vitals:? Assessment: * Assessment: 1.?Blood tests for routine g eneral physical examination - Z00.00 (Primary)???2.?Hypercholesteremia - E78.00???3.?Prostatism - N40.0??? Plan: * Treatment: 2.?Hypercholesteremia?LAB: Complete Blood Count Auto Diff (Collection Date & Time - 09/29/2024 07:37 AM) ?LAB: [facility] [place]. Panel Fast (Collection Date & Time - 09/29/2024 07:37 AM) ?LAB: Lipid Panel (Collection Date & Time - 09/29/2024 07:37 AM) ?LAB: PSA,Total (Free>4and<10) (Collection Date & Time - 09/29/2024 07:37 AM) ?LAB: UA ClnCatch+Micro w/rflx Cult (Collection Date & Time - 09/29/2024 07:37 AM) 3.?Prostatism?LAB: Complete Blood Count Auto Diff (Collection Date & Time - 09/29/2024 07:37 AM) ?LAB: [facility] [place]. Panel Fast (Collection Date & Time - 09/29/2024 07:37 AM) ?LAB: Lipid Panel (Collection Date & Time - 09/29/2024 07:37 AM) ?LAB: PSA,Total (Free>4and<10) (Collection Date & Time - 09/29/2024 07:37 AM) ?LAB: UA ClnCatch+Micro w/rflx Cult (Collection Date & Time - 09/29/2024 07:37 AM) * * The named appointment provid er may or may not be the originator of this progress note, and it is not deemed complete until electronically signed by the appointment provider. Sign off status: Pending * Provider:?Gil Estrella MD Date:?11/29/2023 Generated for Kitty reich/Arie/Fox on:?01/11/2025 01:30 PM EST
--- OUTSIDE RECORDS SUMMARY | 2025-01-11 13:30 | XMS_ITS ---
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 Role Phone Gil Est[facility] [...] message for patient to call me to ADmantXt Referral Priority Routine Referral Appointment Date 10/24/2024 [...] Location Date Provider Diagnosis Gil Estrella MD [address] [place] [address] [place] [phone] 10/13/2024 Gil Estrella Asthma J45.909 ; Fide [...] Up: 6 Months, Reason: Provider Name:Gil arriola, 04/13/2025 07:15:00 AM, [address] [place] [address], [address], [phone], Provider Name:Gil arriola, 04/20/2025 10:00:00 AM, [address] [place] [address], [address], [phone], Provider Name:Gil arriola, 10/12/2025 07:00:00 AM, [address] [place] [address], [address], [phone], Provider Name:Gil arriola, 10/19/2025 09:30:00 AM, [address] [place] [address], [address], [phone], Progress Notes * Kirk FERNANDEZ:[birth year] (69 yo M)Acc No.[id number]:10/13/2024 Progress Notes Patient:?Khris Fernandez Provider:?Gil Estrella MD :[id number]???Age:69 Y???Sex:Male Kaz e:10/13/2024 Address:[address] [place] [address] Subjective: * Chief Complaints: * ???Annual visitC/o headaches hit his head and then 08/2024 hit head on a trailer at work * HPI: ???Depression Screening:?PHQ-9?Little interest or pleasure in doing things?Not at all,?Feeling down, depressed, or hopeless?Not at all,?Trouble falling or staying asleep, or sleeping too much?Not at all,?Feeling tired or having little energy?Not at all,?Poor appetite or overeating?Not at all,?Feeling bad about yourself or that you are a failure, or have let yourself or your family down?Not at all,?Trouble concentrating on things, such as reading the newspaper or watching television?Not at all,?Moving or speaking so slowly that other people could have noticed; or the opposite, being so fidgety or restless that you have been moving around a lot more than usual?Not at all,?Thoughts that you would be better off or of hurting yourself in some way?Not at all,?Total Score?0.?Interpretation and Intervention?Depression Screening Findings?Negative,?Follow-Up for Depression?: review of PHQ-9 found negative result, no follow-up needed.?Communication Needs:?Communication Needs?Does the patient have a hearing impairment?No,?Does the patient have a vision impairment??No,?Does the patient have a cognition impairment??No.?Fall Risk:?History?Have you had any falls with injury in the past year??No,?Have you had two or more falls in the past year??No.?SDOH Questions:?SDOH Questions?In the past year have you been worried about losing housing??No,?In the past year have you or any family members you live with been unable to get any of the following when it was really needed? Check all that apply:?None.?Symptom(s):? patient is a 69 yo male here for annual visit with review of recent labs and follow up of chronic issues. at work was walking under a trailer hit the back of head. memory not as good since his head injury. * ROS:?General/Constitutional:?Patient denies?fatigue, headache.?Change in appetite?denies.?Chills?denies.?Fever?denies.?Ophthalmologic:?Blurred vision?denies.?Discharge?denies.?Pain?denies.?ENT:?Patient denies?decreased sense of smell, any loss of taste, sore throat.?Decreased hearing?denies.?Sore throat?denies.?Swollen glands?denies.?Endocrine:?Cold intolerance?denies.?Excessive thirst?denies.?Heat intolerance?denies.?Weight loss?denies.?Respiratory:?Cough?denies.?Shortness of breath at rest?denies.?Shortness of breath with exertion?denies.?Wheezing?denies.?Cardiovascular:?Chest pain at rest?denies.?Chest pain with exertion?denies.?Irregular heartbeat?denies.?Shortness of breath?denies.?Gastrointestinal:?Abdominal pain?denies.?Change in bowel habits?denies.?Diarrhea?denies.?Nausea?denies.?Rectal bleeding?denies.?Vomiting?denies .?Genitourinary:?Blood in urine?denies.?Difficulty urinating?denies.?Frequent urination?denies.?Musculoskeletal:?Patient denies?muscle aches.?Painful joints?denies.?Weakness?denies.?Peripheral Vascular:?Patient denies?red and blue toes.?Skin:?Dry skin?denies.?Itching?denies.?Denies?Mole(s),? changes in moles, new moles or any lesions of concern.?Denies?Photosensitivity.?Rash?denies.?Neurologic:?Patient complaining of?has bad headaches since starting on atorvastatin. waking up 4 nights a week and sometimes can't go to work. takes excedrin and it gets better 75 %.?Dizziness?denies.?Fainting?denies.?Headache?denies.? * Medical History:? * Surgical History:? * Hospitalization/Major Diagno stic Procedure:? * Family History:?Father: dece ased 88 yrs.?Mother: 96 yrs.?3 brother(s) , 1 sister(s) . .? Father cardiac Mother liver spleen cancer, Denies mental health/substance abuse family history. * Social History:?Tobacco Use:?Tobacco Use/Smoking?Patient is a?nonsmoker,?Additional Findings: Tobacco Non-User?Current non-smoker, currently using no form of tobacco.?Drugs/Alcohol:?Alcohol Screen?Did you have a drink containing alcohol in the past year??Yes,?How often did you have a drink containing alcohol in the past year??Monthly or less (1 point),?How many drinks did you have on a typical day when you were drinking in the past year??1 or 2 drinks (0 point),?How often did you have 6 or more drinks on one occasion in the past year??Never (0 point),?Points?1,?Interpretation?Negative.?Miscellaneous:?Caffeine: yes, frequency:, 1-2 cups per day. no Children. no Community involvements. no Exercise. Home smoke detector use: yes. Housing: owning. Living with: spouse. Marital status: . Occupation: weeks/months/years, works full-time. no Travel outside of the [place]. * Medications:?TakingAtorvasta tin Calcium 20 MG Tablet [...] Allergies:?Penicillinyes[All ergies Verified] Objective: * Vitals:?Ht: 68, Wt:160, BMI: 24.33, BP:98/60. * ???Past Orders: ???Lab:Complete Blood Count Auto Diff (Order Date - 09/29/2024) (Collection Date - 09/29/2024) ? Value Reference Range ?White Blood Count 6.9 4. 8-10.8 - X10*3/uL ?Red Blood Count 4.37 L 4.60 -5.80 - X10*6/uL ?Hemoglobin 14.1 14.0-18.0 - g/dl ?Hematocrit 39.8 L 42.0-52.0 - % ?Mean Corpuscular Volume 91.1 80.0-98.0 - fL ?Mean Corpuscular Hemoglobin 32.3 27.0-33.0 - pg ?Mean Corpuscular HGB Conc 35.4 31.0-36.0 - g/dl ?Red Cell Distribution Width 12.3 11.0-16.0 - % ?Platelet Count 199 160-4 00 - X10*3/uL ?Mean Platelet Volume 8.7 L 9.4-12.4 - fL ?Neutrophils Percent Auto 48.6 45-73 - % ?Imm Gran Pct Auto 0.3 0. 0-0.4 - % ?Lymphocytes Percent Auto 31.6 20-40 - % ?Monocytes Percent Auto 11.5 H 2-11 - % ?Eosinophils Percent Auto 7.3 H 0-4 - % ?Basophils Percent Auto 0.7 0-2 - % ?NRBC Pct Auto 0.0 0.0-0. 2 - /100WBC ?Neutrophils Absolute Auto 3.3 2.0-8.3 - x10*3/uL ?Imm Gran Abs Auto 0.02 0. 00-0.03 - X10*3/uL ?Lymphocytes Absolute Auto 2.2 1.2-4.9 - X10*3/uL ?Monocytes Absolute Auto 0.8 0.1-1.2 - X10*3/uL ?Eosinophils Absolute Auto 0.5 H 0.0-0.4 - X10*3/uL ?Basophils Absolute Auto 0.1 0.0-0.2 - X10*3/uL ?NRBC Abs Auto 0.000 0.0-0. 012 - X10*3/uL ???Lab:Comprehensive [place]. P yina Fast (Order Date - 09/29/2024) (Collection Date - 09/29/2024) ? Value Reference Range ?Sodium 138 135-145 - mmo l/L ?Bilirubin Total 0.6 0.0- 1.0 - mg/dL ?Aspartate Amino Transferase 33 5-37 - U/L ?Alanine Aminotransferase 28 0-40 - U/L ?Total Protein 7.0 6.5-8. 0 - g/dL ?Albumin Level 4.1 3.5-5. 0 - g/dL ?Alkaline Phosphatase 69 39-117 - U/L ?Potassium 4.4 3.3-5.1 - mmol/L ?Chloride 106 96-108 - mm ol/L ?Carbon Dioxide 25 22-29 - mmol/L ?Anion Gap 11 L 12-20 - ?Blood Urea Nitrogen 17 H 9-16 - mg/dL ?Creatinine 0.89 0.5-1.4 - mg/dL ?Estimated Glomerular Filt Rate > 60 - ?Glucose Fasting 109 H 60-9 9 - mg/dL ?Calcium 9.0 8.4-10.2 - m g/dL ???Lab:Lipid Panel (Order Da te - 09/29/2024) (Collection Date - 09/29/2024) ? Value Reference Range ?Triglycerides 85 <150 - mg/dL ?Cholesterol 139 <200 - m g/dL ?LDL Cholesterol Calculated 83 <100 - mg/dL ?HDL Cholesterol 39 L >40 - mg/dL ???Lab:PSA,Total (Free>4and< 10) (Order Date - 09/29/2024) (Collection Date - 09/29/2024) ? Value Reference Range ?PSA,Total (Free>4and<10) 0.75 0.00-4.00 - ng/mL ???Lab:UA ClnCatch+Micro w/r flx Cult (Order Date - 09/29/2024) (Collection Date - 09/29/2024) ? Value Reference Range ?Color Urine Yellow - ?Appearance Urine Clear - ?PH 6.5 5.0-9.0 - ?Glucose Urine UA Negative Neg ative - mg/dL ?Urine Blood Negative Negative - ?Specific [place] - Urine 1.015 1.005-1.025 - ?Urine Protein Negative Neg-Tr nicole - mg/dL ?Urine Ketones Negative Negati ve - mg/dL ?Nitrite Urine Negative Negati ve - ?Leukocyte Esterase Urine Negative Negative - ?RBC Urine 0-2 0-2 - /HPF ?WBC Urine 0-5 0-5 - /HPF ?Squamous Epithelial Cell Urine 0-2 0-2 - /HPF ?Bacteria Urine None Seen None Seen - ?Hyaline Casts Urine 0-2 0-2 - /LPF * Examination: ???General Examination: ?GENERAL APPEARANCE:?well developed, well nourished, in no acute distress.?HEAD:?normocephalic, atraumatic.?EYES:?pupils equal, round, reactive to light and accommodation, sclera non-icteric.?EARS:?normal.?ORAL CAVITY:?mucosa moist.?THROAT:?clear.?NECK/THYROID:?neck supple, full range of motion, no cervical lymphadenopathy, no bruits.?SKIN:?warm and dry, no suspicious lesions.?HEART:?regular rate and rhythm, S1, S2 normal, no murmurs.?LUNGS:?clear to auscultation bilaterally.?ABDOMEN:?soft, nontender, nondistended, bowel sounds present, normal, no organomegaly , no masses palpable.?RECTAL EXAM:?normal tone, no external hemorrhoids, no masses palpable, prostate normal, stool guaiac negative.?MALE GENITOURINARY:?circumcised , no testicular mass , testes descended bilaterally.?EXTREMITIES:?no clubbing, cyanosis, or edema.?NEUROLOGIC:?nonfocal, motor strength normal upper and lower extremities, sensory exam intact.? Assessment: * Assessment: 1.?Annual physical exam - Z0 0.00 (Primary)?2.?Asthma - J45.909?3.?Recurrent headache - R51.9?4.?Hypercholesteremia - E78.00?5.?Prostatism - N40.0?6.?Colon cancer screening - Z12.11?7.?Depression screening - Z13.31? Plan: * Treatment: 2.?Asthma? Refill Fluticasone Propionate Suspension, 50 MCG/ACT, spray spray 1 spray into each nostril every day for 30 days, Nasally, Once a day, 90 days, 3, Refills 4;?Continue ProAir HFA Aerosol Solution, 108 (90 Base) MCG/ACT, 1 puff as needed, Inhalation, every 4 hrs;?Continue Montelukast Sodium Tablet, 10 MG, 1 tablet, Orally, Once a day.?? Notes: stable, will contnue current regiment?? 3.?Recurrent headache? Notes: referral to neurology?? 4.?Hypercholesteremia? Continue Atorvastatin Calcium Tablet, 20 MG, 1 tablet, Orally, Once a day.?? Notes: stable, will continue current regiment?? 5.?Prostatism? Continue Tamsulosin HCl Capsule, 0.4 MG, TAKE 1 CAPSULE BY MOUTH EVERY DAY FOR 30 DAYS.?? Notes: will continue to monitor?? 6.?Colon cancer screening?LAB: Occult Blood, Stool, Guaiac?Negative ? Value Reference Range ?Occult Blood, Stool, Guaiac Neg Notes: guaiac negative??7.?Depression screening? Notes: negative screen??8.?Others? Referral To:[facility] No??Neurology ?Reason:recurrent headaches * Procedure Codes:?70901 TEST FOR BLOOD, FECES * Follow Up:?6 Months * * Sign off status: Completed true * Provider:?Gil Estrella MD Date:?1 12/14/2023 Generated for Kitty reich/Arie/eTransmitting on:?01/11/2025 01:30 PM EST History and Physical [...] had two or more falls in the year?: No Communication Needs Communication Needs Does [...] Provider Referred Provider Not es 10/13/2024 Gil Estrella Muhammed Frequen t headaches
--- OUTSIDE RECORDS SUMMARY | 2025-01-11 13:30 | XMS_ITS | Patient Health Record ---
Author Organization Gil Estrella MD Address [address] [place], [place] [id number] Care Team Providers Care Hospital Monitor Name Role Phone Gil Estrella Primary Care Provider Allergies Allergen (clinical drug ingredient) Drug/Non Drug Allergy documented on EMR Reaction Allergy Type Onset Date Status Penicillin Unknown Drug Allergy Active Results Component Value Reference Range Notes US abdomen limited Reviewed date:01/17/2024 12:46:59 PM Interpretation: Performing Lab: Notes/Report: [address] [address] Ultrasound Report Signed Patient: Khris Fernandez MR#: [id number] : 1955 Acct:[id number] Age/Sex: 68 / M ADM Date: 01/14/24 Loc: .CARD Attending Dr: Gil Estrella MD Ordering Physician: Gil Estrella MD Date of Service: 01/14/24 Procedure(s): US abdomen limited Accession Number(s): [id number] cc: Gil Estrella MD EXAMINATION: US ABDOMEN LIMITED CLINICAL INFORMATION: Ascites. COMPARISON: None available. TECHNIQUE: Real-time imaging of the bilateral upper and lower quadrants of the abdomen. FINDINGS: No ascites is seen in the right upper quadrant, right lower quadrant, left lower quadrant and left upper quadrant. US/US abdomen limited IMPRESSION: No ascites. Dictated By: Lizbeth Bueno MD Signed By: <Electronically signed by Lizbeth Bueno MD in OV> 01/17/24 0854 DD/ 0910 TD/TT: [employer] Mixer: [address] [address] Ultrasound Report Signed Patient: Parminder Fernandez MR#: [id number] : 1955 Acct:[id number] Age/Sex: 68 / M ADM Date: 01/14/24 Loc: HO.CARD Attending Dr: Gil Estrella MD Ordering Physician: Gil Estrella MD Date of Service: 01/14/24 Procedure(s): US abd omen limited Accession Number(s): [id number] cc: Gil Estrella MD EXAMINATION: US ABDOMEN LIMITED CLINICAL INFORMATION: Ascites. COMPARISON: None available. TECHNIQUE: Real-time imaging of the bilateral upper and lower quadrants of the abdomen. FINDINGS: No ascites is seen i n the right upper quadrant, right lower quadrant, left lower quadrant and left upper quadrant. U S/US abdomen limited IMPRESSION: No ascites. Dictated By: Boaz Bueno MD Signed By: <Electronically signed by Lizbeth Bueno MD in OV> 01/17/24 0854 DD/ 0910 TD/TT: Float[employer] Powder Mixer: CT chest wo con Reviewed date:05/29/2024 01:11:03 PM Interpretation:CBACK 05/26/24 Performing Lab: Notes/Report: [address] [address] [address] Scan Report Signed Patient: Khris Fernandez MR#: [id number] : 1955 Acct:[id number] Age/Sex: 68 / M ADM Date: 03/17/24 Loc: HO.CT Attending Dr: Gil Estrella MD Ordering Physician: Gil Estrella MD Date of Service: 03/17/24 Procedure(s): CT chest wo IV con Accession Number(s): [id number] cc: Gil Estrella MD EXAMINATION: CT CHEST WITHOUT CONTRAST CLINICAL INFORMATION: Chest x-ray for tachycardia identifies hilar prominence, right more than left. COMPARISON: Chest x-ray 11/26/2023. TECHNIQUE: Multidetector volumetric CT imaging of the chest was done. Axial MIP volume rendering provided. Sagittal and coronal reformatted images were obtained. This CT examination was performed using dose optimization techniques as appropriate, variously including the following: *Automated exposure control *Adjustment of mA and/or kV according to patient size (this includes techniques or standardized protocols for targeted exams where dose is matched to indication/reason for exam; i.e. extremities or head) *Use of iterative reconstruction technique DLP: 175 mGy-cm FINDINGS: ENCEPHALOGRAPHER: Unremarkable. LUNGS: A smooth solid 3 mm left upper lobe pulmonary nodule (series 5 image 270/712). A smooth, solid 2 mm left lower lobe pulmonary nodule (series 5 image 331). No mass or consolidation. Clear airways. Minor dependent atelectasis. MEDIASTINUM: No mediastinal mass or lymphadenopathy. Specifically, no hilar adenopathy. The pulmonary vessels are normal in appearance on noncontrast CT. Apparent prominence on plain radiography likely artifactual due to patient rotation. No gross cardiac abnormality on non-contrast CT. CORONARY ARTERY CALCIFICATION: Moderate coronary artery disease predominating in the LAD. CAD present, suggest PCP evaluation for ASCVD risk assessment. PLEURA: There is no pleural effusion. No pleural mass or thickening. AXILLA: No lymphadenopathy. UPPER ABDOMEN: Left-sided colonic diverticulosis. OSSEOUS STRUCTURES: Minor degenerative spine disease. CT/CT chest wo IV con IMPRESSION: 1. Coronary artery disease. Suggest PCP evaluation. 2. Pulmonary vasculature normal. 3. No mass or adenopathy. 4. Incidental less than 6 mm pulmonary nodules. No follow up indicated. Fleischner guidelines were followed. Dictated By: Fracisco Vargas MD Signed By: <Electronically signed by Fracisco Vargas MD in OV> 04/21/24 1539 DD/ 0815 TD/TT: [employer]er: [address] [address] [address] Scan Report Signed Patient: Parminder Fernandez MR#: [id number] : 1955 Acct:[id number] Age/Sex: 68 / M ADM Date: 03/17/24 Loc: HO.CT Attending Dr: Gil Estrella MD Ordering Physician: Gil Estrella MD Date of Service: 03/17/24 Procedure(s): CT malika st wo IV con Accession Number(s): [id number] cc: Gil Estrella MD EXAMINATION: CT CHEST WITHOUT CONTRAST CLINICAL INFORMATION: Chest x-ray for tachycardia identifies hilar prominence, right more than left. COMPARISON: Chest x-ray 11/26/2023. TECHNIQUE: Multidetector volume tric CT imaging of the chest was done. Axial MIP volume rendering provided. Sagittal and coronal reformatted images were obtained. This CT examination was performed using dose optimization techniques as appropriate, various ly including the following: *Automated exposure control *Adjustment of mA an d/or kV according to patient size (this includes techniques or standardized protocols for targeted exams where dose is matched to indication/reason for exam; i.e. extremities or head) *Use of iterative reconstruction technique DLP: 175 mGy-cm FINDINGS: ENCEPHALOGRAPHER: Unremarkable. LUNGS: A smooth leona d 3 mm left upper lobe pulmonary nodule (series 5 image 270/712). A smooth, solid 2 mm left lower lobe pulmonary nodule (series 5 image 331). No mass or consolidation. Clear airways. Minor dependent atelectasis. MEDIASTINUM: No mediastinal mass or lymphadenopathy. Specifically, no hil ar adenopathy. The pulmonary vessel s are normal in appearance on noncontrast CT. Apparent prominence on plain radiography likely artifactual due to patient rotation. No gross cardiac abnormality on non-contrast CT. CORONARY ARTERY CALCIFICATION: Moderate coronary artery disease predominating in the LAD. CAD present, suggest PCP evaluation for ASCVD risk assessment. PLEURA: There is no pleural effusion. No pleural mass or thickening. AXILLA: No lymphadenopathy. UPPER ABDOMEN: Left-sided colonic diverticulosis. OSSEOUS STRUCTURES: Minor degenerative spine disease. C T/CT chest wo IV con IMPRESSION: 1. Coronary artery disease. Suggest PCP evaluation. 2. Pulmonary vascula ture normal. 3. No mass or adenopathy. 4. Incidental less t ventura 6 mm pulmonary nodules. No follow up indicated. Fleischner guideline s were followed. Dictated By: Adenike Vargas MD Signed By: <Electronically signed by Fracisco Vargas MD in OV> 04/21/24 1539 DD/ 0815 TD/TT: Raspberry Checker ist: JJanis NM cardiolite stress test Reviewed date:08/23/2024 06:48:26 PM Interpretation: Performing Lab: Notes/Report: [address] [address] Nuclear Medicine Report Signed Patient: Khris Fernandez MR#: [id number] : 1955 Acct:[id number] Age/Sex: 69 / M ADM Date: 08/07/24 [facility]ending Dr: Alfredo Flores MD Ordering Physician: Alferdo Flores MD Date of Service: 08/07/24 Procedure(s): NM cardiolite stress test Accession Number(s): [id number] cc: Gil Estrella MD; Alfredo Flores MD EXERCISE MYOCARDIAL PERFUSION STUDY INDICATION: Precordial chest pain to evaluate for myocardial ischemia TECHNIQUE: The patient was brought in for an exercise perfusion study on 08/07/2024. Patient performed exercise as per Berry protocol and was injected 25 mCi of sestamibi once target heart rate was achieved. Images were obtained using the SPECT gamma camera interlaced with the gating device. Images were obtained in supine position. Resting perfusion study was performed on 08/22/2024. Patient was administered 25 mCi of sestamibi intravenously at rest. Images were then obtained in supine position. Images obtained without without CT attenuation. Total DLP 90 mGy-cm Images were processed with the software and compared side to side in short axis, horizontal long axis and vertical long axis views. FINDINGS: Raw images were reviewed The stress perfusion study showed both attenuated as well as nonattenuated corrected images show normal uptake of radiotracer in all segments of the LV myocardium. The gated study shows normal LV systolic function with calculated LVEF of 73%. LV cavity is normal in in size. The gated study shows normal systolic wall thickening and contraction of segments. Resting study shows no change in perfusion pattern compared to stress perfusion study. Gating at rest reveals normal systolic wall motion with ejection fraction at 72%. The findings are consistent with normal myocardial perfusion. NM/NM cardiolite stress test IMPRESSION: 1. Myocardial perfusion imaging study shows normal myocardial perfusion. 2. Gated LVEF is 73%. 3. Transient ischemic dilatation not present. EKG revealed negative for ischemia. Electronically signed by: Mike Tobin MD 08/22/2024 04:22 PM EDT RP Dictated By: Mike Tobin MD Signed By: <Electronically signed by Mike Tobin MD in OV> 08/22/24 1622 DD/ 1025 TD/TT: 08/22/24 1430 [employer]er: [place] [address] Nuclear Medicine Report Signed Patient: Parminder Fernandez MR#: [id number] : 1955 Acct:[id number] Age/Sex: 69 / M ADM Date: 08/07/24 Loc: [facility] Attending Dr: Meme Flores MD Ordering Physician: Alfredo Flores MD Date of Service: 08/07/24 Procedure(s): OK cardiolite stress test Accession Number(s): [id number] cc: Gil Estrella MD; Alfredo Flores MD EXERCISE MYOCARDIAL PERFUSION STUDY INDICATION: Precordial chest thu n to evaluate for myocardial ischemia TECHNIQUE: The patient was [facility] in for an exercise perfusion study on 08/07/2024. Patient performed exercise as per Berry protocol and was injected 25 mCi of sestamibi once target heart rate was achieved. Images were obtained using the SPECT gamma camera interlaced with the gating device. Image s were obtained in supine position. Resting perfusion st udy was performed on 08/22/2024. Patient was administered 25 mCi of sestamibi intravenously at rest. Images were then obtained in sup ine position. Images obtained with out without CT attenuation. Total DLP 90 mGy-cm Images were processe d with the software and compared side to side in short axis, horizont al long axis and vertical long axis views. FINDINGS: Raw images were reviewed The stress perfusion study showed both attenuated as well as nonattenuated correc giovani images show normal uptake of radiotracer in all segments of the LV myocardium. The gated study shows normal LV systolic function with calcul ated LVEF of 73%. LV cavity is normal in in size. The gated study show s normal systolic wall thickening and contraction of segments. Resting study shows no change in perfusion pattern compared to stress perfusion study. Gat ing at rest reveals normal systolic wall motion with ejection fracti on at 72%. The findings are consistent with normal myocardial perfusion. N M/NM cardiolite stress test IMPRESSION: 1. Myocardial perfus ion imaging study shows normal myocardial perfusion. 2. Gated LVEF is 73%. 3. Transient ischemi c dilatation not present. EKG revealed negativ e for ischemia. Electronically kori d by: Mike Tobin MD 08/22/2024 04:22 PM EDT RP Dictated By: Gillian Tobin MD Signed By: <Electronically signed by Mike Tobin MD in OV> 08/22/24 1622 DD/ 1025 TD/TT: 08/22/24 1430 [employer] Mixer: US retroperitoneal comp Reviewed date:11/15/2024 03:30:02 PM Interpretation: Performing Lab: Notes/Report: [facility] [address] [place] [address] [place] [address] Ultrasound Report Signed Patient: Khris Fernandez MR#: [id number] : 1955 Acct:[id number] Age/Sex: 69 / M ADM Date: 09/05/24 Loc: .[facility] Attending Dr: Korina DILL Ordering Physician: Korina Ivan Date of Service: 09/05/24 Procedure(s): US retroperitoneal comp Accession Number(s): [id number] cc: Gil Estrella MD; Korina Ivan EXAMINATION: US RETROPERITONEAL COMPLETE (RENAL) CLINICAL INFORMATION: Nocturia. COMPARISON: Abdomen ultrasound 01/14/2024. TECHNIQUE: Real-time imaging of the kidneys and bladder. FINDINGS: RIGHT KIDNEY: 11.3 x 5.5 x 5.9 cm (SAG x AP x TRV). The kidney is normal in size, contour, and echogenicity. Renal cortical thickness is normal. No renal calculi or hydronephrosis. A benign mid renal 1.6 cm Bosniak class I renal cyst is noted which requires no additional imaging or follow up. No solid renal masses are seen. LEFT KIDNEY: 11.1 x 5.7 x 7.3 cm (SAG x AP x TRV). The kidney is normal in size, contour, and echogenicity. Renal cortical thickness is normal. No calculi or focal parenchymal lesions. No hydronephrosis. BLADDER: A small bladder diverticulum is seen measuring 1.2 x 0.6 x 1.2 cm prevoid and 2.0 x 0.8 x 1.7 cm post void 4 Bilateral ureteral jets are demonstrated. Prevoid bladder volume is 574 mL. Postvoid bladder volume is 298 mL. PROSTATE GLAND: The prostate gland is enlarged with a volume of 38.1 mL. US/US retroperitoneal comp IMPRESSION: 1. Prostate enlargement with large post void residual. 2. Small bladder diverticulum. Electronically signed by: Daniel Haynes MD 11/15/2024 01:05 PM EST Dictated By: Daniel Haynes MD Signed By: <Electronically signed by Daniel Haynes MD in OV> 11/15/24 1305 DD/ 0917 TD/TT: 09/05/24 1200 [employer] Powder Mixer: [facility] [address] [place] [address] [place] [address] Ultrasound Report Signed Patient: Parminder Fernandez MR#: [id number] : 1955 Acct:[id number] Age/Sex: 69 / M ADM Date: 09/05/24 Loc: .[facility] Attending Dr: Korina DILL Ordering Physician: Korina Ivan Date of Service: 09/05/24 Procedure(s): US retroperitoneal comp Accession Number(s): [id number] cc: Gil Estrella MD; Korina Ivan EXAMINATION: US RETROPERITONEAL COMPLETE (RENAL) CLINICAL INFORMATION: Nocturia. COMPARISON: Abdomen ultrasound 01/14/2024. TECHNIQUE: Real-time imaging of the kidneys and bladder. FINDINGS: RIGHT KIDNEY: 11.3 x 5.5 x 5.9 cm (SAG x AP x TRV). The kidney is normal in size, cont our, and echogenicity. Renal cortical thickness is normal. No renal igor culi or hydronephrosis. A benign mid renal 1.6 cm Bosniak class I paul l cyst is noted which requires no additional imaging or follow up . No solid renal masses are seen. LEFT KIDNEY: 11.1 x 5.7 x 7.3 cm (SAG x AP x TRV). The kidney is normal in size, contour, an d echogenicity. Renal cortical thickness is normal. No calculi or focal parenchymal lesions. No hydronephrosis. BLADDER: A small [place] dder diverticulum is seen measuring 1.2 x 0.6 x 1.2 cm prevoid and 2.0 x 0.8 x 1.7 cm post void 4 Bilateral ureteral jets are demonstrated. Prevoid bladder volume is 574 mL. Postvoid bladder volume is 298 mL. PROSTATE GLAND: The prostate gland is enlarged with a volume of 38.1 mL. U S/US retroperitoneal comp IMPRESSION: 1. Prostate enlargem ent with large post void residual. 2. Small bladder diverticulum. Electronically kori d by: Daniel Haynes MD 11/15/2024 01:05 PM [facility] Dictated By: Daniel Haynes MD Signed By: <Electronically signed by Daniel Haynes MD in OV> 11/15/24 1305 DD/ 0917 TD/TT: 09/05/24 1200 [employer] Powder Mixer: [place] Prostate Specific Antigen Reviewed date:09/21/2024 12:59:35 PM Interpretation: Performing Lab:[facility], [address] [place] [id number] Notes/Report: Prostate Specific Antigen 0.69 <0.05-4.0 ng/mL PSA methodology: Gonzalez Alinity i Chemiluminescent Microparticle Immunoassay (CMIA) Occult Blood, Stool, Guaiac Reviewed date:10/13/2024 01:03:25 PM Interpretation:Negative Performing Lab: Notes/Report: Negative Occult Blood, Stool, Guaiac Neg Reason For Referral Reason ascites Diagnosis 1 Other ascites (R18.8 ) Referral Organization Gil Estrella MD Referring Provider First Name Gil Referring Provider Last Name Sameer Referring Provider Speciality Internal M edicine Referred Provider NATHAN HENDRICKSON Referred Provider Specialty Gastroentero logy General Notes Fili,Lis 02:15:39 PM EDT > patient will be getting back to me when he finds out who his GI doctor is, needs endoscopy done. , Lis Penn 03/06/2024 09:23:41 AM EDT > info faxed , Lis Penn 03/09/2024 09:03:41 AM EDT > appt is with OLIVIA Zapiencesscone [address] [place] [id number], Lis Penn 03/09/2024 11:15:01 AM EDT > info mailed to patient Referral Priority Routine Referral Appointment Date 07/06/2024 Reason discomfort in chest Diagnosis 1 Discomfort in chest (R07.89) Referral Organization Gil Estrella MD Referring Provider First Name Gil Referring Provider Last Name Sameer Referring Provider Speciality Internal edicine Referred Provider NELLY FLORES Referred Provider Specialty Cardiology General Notes Lis Penn 11:36:15 AM EDT > info faxed , Lis Penn 03/30/2024 11:20:55 AM EDT > info mailed to patient Referral Priority Routine Referral Appointment Date 06/13/2024 Reason prostatism Diagnosis 1 Prostatism (N40.0) Referral Organization Gil Estrella MD Referring Provider First Name Gil Referring Provider Last Name Sameer Referring Provider Speciality Internal edicine Referred Provider Vincent Martínez Referred Provider Specialty Urology General Notes Emily Sanchez 06/12/2024 09:58:49 AM EDT > REFFERAL FAXED ON THIS DATE, Lis Penn 06/20/2024 08:50:37 AM EDT > patint is aware of appt Referral Priority Routine Referral Appointment Date 08/09/2024 Reason Frequent headaches Diagnosis 1 Frequent headaches ( R51.9) Referral Organization Gil Estrella MD Referring Provider First Name Gil Referring Provider Last Name Sameer Referring Provider Speciality Internal edicine Referred Provider Judah Beckwith Referred Provider Specialty Neurology General Notes Lis Penn 11:24:51 AM EST > info faxed , Lis Penn 10/23/2024 11:06:27 AM EST > left message for patient to call me to evOLED appt Referral Priority Routine Referral Appointment Date 10/24/2024 Medications Medication SIG (Take, Route, Frequency, Duration) [...] Once a day for 90 days Active Immunizations Vaccine Route Administration Date Status Comme nts SARS-COV-2 Moderna Unknown 02/04/2021 Administered SARS-COV-2 Moderna Unknown 03/04/2021 Administered Shingrix Unknown 03/21/2024 Administered [facility] Fluarix Quadrivalent Unknown 08/10/2022 Refused Influenza High Dose Unknown 07/31/2024 Refused Social History Tobacco Use: Social History Observation [...] Never (0 point) Points 1 Interpretation Negative Problems Problem Type SNOMED Code ICD Code Onset Dates Problem Status W/U Status Risk Notes Problem 45261470 Prostatism (N40.0) Active confirmed Problem 877343743 Other ascites (R18.8) Active confirmed Problem Asthma (870489127) Asthma (J45.909) Active conf irmed Problem Sjogrens syndrome (04104891) Sjogrens syndrome (M35.00) Active confirmed Problem hypercholesterolemia (disorder) (42856486) Hypercholesteremia (E78.00) Active confirmed Problem Abnormal chest x ray (R93.89) Active confirmed Problem 98692127 Arteriosclerotic coronary artery disease (I25.10) Active confirmed Problem 079740181 Abnormal chest x-ray (R93.89) Active confirmed Vital Signs Blood pressure diastolic 60 mm Hg 10/13/2024 Height 68 in 10/13/2024 Blood pressure systolic 98 mm Hg 10/13/2024 Weight 160 lbs 10/13/2024 BMI 24.33 kg/m2 10/13/2024 Encounters Encounter Location Date Provider Diagnosis Gil Estrella MD [address] [place] [id number] 02/22/2024 Gil Estrella Other ascites R18.8 ; Abnormal chest xray R93.89 and Atypical chest pain R07.89 Gil Estrella MD [address] [id number] 03/27/2024 Gil Estrella Discomfort in chest R07.89 Gil Estrella MD [address] [place] [id number] 05/29/2024 Gil Estrella Arteriosclerotic cor onary artery disease I25.10 ; Irregular breathing pattern R06.89 and Prostatism N40.0 Gil Estrella MD [address] [place] [id number] 06/08/2024 Gil Estrella Bee sting, accidenta l or unintentional, initial encounter T63.441A Gil Estrella MD [address] [place] [id number] 07/31/2024 Gil Vegaardiannemarie Asthma J45.909 ; Jessica lgia, multiple sites M79.18 and Atypical chest pain R07.89 Gil Estrella MD [address] [place] [id number] 10/13/2024 Gil Silviaardier Asthma J45.909 ; Fide ua physical exam Z00.00 ; Recurrent headache R51.9 ; Hypercholesteremia E78.00 ; Prostatism N40.0 ; Colon cancer screening Z12.11 and Depression screening Z13.31 Gil Estrella MD [address] [place] [id number] 01/20/2024 Gil Estrella MD [address] [place], [place] [id number] 06/08/2024 Gil Estrella MD [address] [place], [place] [id number] 2024 Gil Estrella Asthma J45.909 Assessments Encounter Date Diagnosis (ICD Code) Assessment Notes Treatment Notes Treatment Clinical Notes Section Notes 02/22/2024 Other ascites (ICD-1 0 - R18.8) has resolved 02/22/2024 Abnormal chest xray (ICD-10 - R93.89) discussed findings of CXR and need for chest ct in one month 03/27/2024 Discomfort in chest (ICD-10 - R07.89) [place] [facility] has been going on for 2 years with no change so not urgent at this point 05/29/2024 Arteriosclerotic coronary artery disease (ICD-10 - I25.10) discussed findings of CT scan with patient, has appt with cardiology next month. 05/29/2024 Irregular breathing pattern (ICD-10 - R06.89) order faxed to [facility] [place], pending diagnostic testing 06/08/2024 Bee sting, accidenta l or unintentional, initial encounter (ICD-10 - T63.441A) not allergic but still use benedrl and ibuprofen for pain 07/31/2024 Asthma (ICD-10 - J45.909) has a tickliish cough which is probably an asthma variant 07/31/2024 Myalgia, multiple sites (ICD-10 - M79.18) will try coenzyme. may need repatha 10/13/2024 Asthma (ICD-10 - J45.909) stable, will contnue current regiment 10/13/2024 Annual physical exam (ICD-10 - Z00.00) labs reviewed and discused with patient 2024 Asthma (ICD-10 - J45.909) 02/22/2024 Atypical chest pain (ICD-10 - R07.89) never with exertion, lasts very short. to get upper endo 05/29/2024 Prostatism (ICD-10 - N40.0) referral to urology 07/31/2024 Atypical chest pain (ICD-10 - R07.89) waiting for stress test in 10/13/2024 Recurrent headache (ICD-10 - R51.9) referral to neurology 10/13/2024 Hypercholesteremia (ICD-10 - E78.00) stable, will continue current regiment 10/13/2024 Prostatism (ICD-10 - N40.0) will continue to monitor 10/13/2024 Colon cancer screeni ng (ICD-10 - Z12.11) guaiac negative 10/13/2024 Depression screening (ICD-10 - Z13.31) negative screen 02/22/2024 Other is going to find out who did his colonoscopy and will send for the records. send him back to him for upper endoscopy Plan Of Treatment Pending Test Test Name Order Date XR CHEST 2 VIEW PA & LAT 11/26/2023 US ABD 11/26/2023 CA echo transthoracic complete CT chest wo con 12/07/2023 CT chest wo con 12/02/2023 RT pulmonary function test 05/29/2024 Next Appt Details Provider Name:Gil Recio ier, 04/13/2025 07:15:00 AM, [address] [place] [address], [address], [phone], Provider Name:Gil Recio ier, 04/20/2025 10:00:00 AM, [address] [place] [address], [address], [phone], Provider Name:Gil Recio ier, 10/12/2025 07:00:00 AM, [address] [place], [place] [address], [address], [phone], Provider Name:Gil Recio ier, 10/19/2025 09:30:00 AM, [address] [place] [address], [address], [phone], Insurance Providers Payer Name Payer Address Payer Phone Subscriber Number Group Number Insured Name Patient Relationship to Insured Coverage Start Date Coverage End Date [employer] [address] [place], [place] [phone] [id number] Khris Fernandez Self - patient is the insured Medical (General) History Medical History History ICD Code colonoscopy 2021 repeat 10
== END ==
LOC: HO.CARD 11:03
PROVIDERS: PCP Internal Medicine; Visit Provider Nurse Practitioner Family
DX: R00.2 Palpitations (principal); I42.9 Cardiomyopathy, unspecified
CPT/HCPCS: 93242; 93308; Q9957

== ENCOUNTER → 2025-01-11 11:07 | Outpatient (BNV) | payer BC, SELFPAY | PROVIDERS: PCP Internal Medicine; Visit Provider Internal Medicine Cardiovascular Disease | DX: I42.8 Other cardiomyopathies (principal) | CPT/HCPCS: 93308; 93321 ==

== ENCOUNTER 2025-02-12 15:31 | Outpatient (AMB) | payer BC, SELFPAY ==
--- NOTE | 2025-02-12 15:34 | MHC.OFFVIS ---
Intake Visit Reasons: 3m followup/PVR Intake Note: Pt presents to the office today for a 3 month follow up/PVR. PVR:50ml Allergies Penicillins Allergy (Severe, Verified 02/12/25 19:59) Wheezing Medication List - Last Reconciled 02/12/25 by DEANNE Boothe- aspirin (Adult Aspirin Regimen) 81 mg PO DAILY atorvastatin 20 mg PO QPM metoprolol succinate ER 12.5 mg (1/2 x 25 mg) PO DAILY 30 days HPI Comments Details: Khris is a 69-year-old male patient of Dr. Estrella. He has a past medical history of ACD and asthma. He presents to the office today for follow-up of his ongoing lower urinary tract symptoms. Of note, during last office visit approximately 3 months ago plan was to discontinue alfuzosin as patient was unsure as if he was having side effects to the medication. He had been reporting increased amounts of headaches with fatigue and dizziness however had recently started other medications. Patient reports feeling alfuzosin had decreased amounts of nocturia as he experiences nocturia up to 5 times per night. He does continue to experience episodes of urinary urgency, urinary frequency, as well as nocturia. He finds nocturia most bothersome urinary issue. He does report episodes of snoring however describes these episodes as infrequent. We discussed obtaining sleep study for further assessment evaluation. We also discussed importance of limiting fluids 2-3 hours prior to bed as he does endorse to be drinking plenty of fluid prior to bed. We also discussed further interventions and risks and benefits of these interventions. Previous workup has included a retroperitoneal ultrasound 08/31 noting bilateral kidneys are normal in size, contour, and echogenicity. Bilateral kidneys with no calculi or hydronephrosis. Right kidney with benign mid renal 1.6 cm Bosniak class 1 renal cyst which requires no additional follow-up per radiology report. A small bladder diverticulum is seen measuring a proximally 1.2 cm. Pre void bladder volume is approximately 580 mL. Postvoid bladder volume is approximately 300 mL. The prostate gland is enlarged with a volume of approximately 38 mL. PSAs are as follows: 06/29 0.2, 08/30 1.0, 10/01 0.8 Patient had previously trialed Flomax and did not find this helpful. He would like to continue with lifestyle modifications. He otherwise denies hematuria, dysuria, foul smelling urine, changes to urinary stream, flank pain, fever, and or chills. We discussed at length potential causes for lower urinary tract symptoms patient is experiencing. In office urinalysis results reviewed with the patient today. PVR 50 mL. He otherwise offers no other issues or concerns at this time. Patient was informed and verbally consented to the use of an ambient scribe for clinic note documentation during this visit. Discussion Notes We discussed the patient's comprehensive management plan, where fluid moderation was emphasized at night. Alfuzosin, previously beneficial, could be reconsidered based on symptomatic alleviation achieved through non-pharmacologic means, addressing complaints about adverse effects experienced previously. Suspected sleep apnea warrants a formal sleep study to delineate its contribution towards headaches or sleep disturbances, which may also impact his genitourinary complaints indirectly. Detailed discussion covered procedural measures, side effects of medications, along with the positive nut orchardist to proposed, fiscally conservative approaches for his care moving forward. [facility] Medical History Atherosclerotic cardiovascular disease Asthma Family History Mother Cancer Father Heart problem Social History Alcohol intake: former Patient Tobacco Use Status: Never used Tobacco Review of Systems Const All systems reviewed & are unremarkable except as noted in HPI and below Physical Exam Const General: cooperative, healthy appearing, comfortable, no acute distress, well developed, alert and awake Orientation/consciousness: patient oriented x3 Limitations: no limitations HEENT Head: Yes normal to inspection, Yes normocephalic and Yes atraumatic Ears: hearing grossly normal bilaterally Eyes General: appearance normal, both eyes and all related structures Neck Neck: Yes normal visual inspection and Yes trachea midline Chest Chest palpation & inspection: normal inspection of the chest Resp Effort & Inspection: normal respiratory effort and able to speak in complete sentences Cardio Rate: regular rate GI Inspection: Yes normal to inspection General: Yes no CVA tenderness Back/Spine/Pelvis Back: no CVA tenderness Skin General skin exam: no rashes or lesions noted Neuro General: patient oriented x3 Extrem General: Yes normal to inspection Psych Appearance: grossly normal and well kempt Mental Status: mental status grossly normal Speech and movement: Normal speech and movement present and Clear speech present Affect: normal affect Attitude: cooperative Thought process: Normal thought process present Thought content: Normal thought content present Insight: Fair insight present (Psych) Judgement: Fair judgement present (Psych) Office Procedures Post Void Residual Post Residual Void Post Void Residual (PVR): 50 [id number]-[id number] Void Residual by ultrasound Results AMB Urinalysis, Automated UA Leukoctes 0 Corrine/uL Last Edit by Cecily Sullivan CMA on 02/12/25 15:42 UA Nitrite Negative Last Edit by Cecily Sullivan CMA on 02/12/25 15:42 UA Urobilinogen 0.2 mg/dL Last Edit by Cecily Sullivan CMA on 02/12/25 15:42 UA Protein 15 mg/dL Last Edit by Cecily Sullivan CMA on 02/12/25 15:42 UA pH 6.0 Last Edit by Cecily Sullivan CMA on 02/12/25 15:42 UA Blood 0 Chandrakant/uL Last Edit by Cecily Sullivan CMA on 02/12/25 15:42 UA Specific [place] 1.015 Last Edit by Cecily Sullivan CMA on 02/12/25 15:42 UA Ketone Negative Last Edit by Cecily Sullivan CMA on 02/12/25 15:42 UA Bilirubin 0 mg/dL Last Edit by Cecily Sullivan CMA on 02/12/25 15:42 UA Glucose 0 mg/dL Last Edit by Cecily Sullivan CMA on 02/12/25 15:42 Results Reviewed Results Reviewed: Laboratory Last Values Urine pH (Auto) 6.0 02/12/25 15:35 Specific [place] (Auto) 1.015 02/12/25 15:35 Urine Protein (Auto) 15 mg/dL 02/12/25 15:35 Glucose (UA)(Auto) 0 mg/dL 02/12/25 15:35 Urine Ketones (Auto) Negative 02/12/25 15:35 Urine Blood (Auto) 0 Chandrakant/uL 02/12/25 15:35 Urine Nitrite (Auto) Negative 02/12/25 15:35 Urine Bilirubin (Auto) 0 mg/dL 02/12/25 15:35 Urine Urobilinogen (Auto) 0.2 mg/dL 02/12/25 15:35 Leukocyte Esterase (Auto) 0 Corrine/uL 02/12/25 15:35 Assessment & Plan Assessment & Plan (1) Nocturia: Code(s): R35.1 - Nocturia Category: Medical (2) Renal cyst: Code(s): N28.1 - Cyst of kidney, acquired Category: Medical (3) Enlarged prostate: Code(s): N40.0 - Benign prostatic hyperplasia without lower urinary tract symptoms Category: Medical (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 PVR 50 mL. Will continue with surveillance monitoring at this time. Will attempt to obtain sleep study for further assessment evaluation. We discussed importance of limiting fluids 2-3 hours prior to bed to decrease episodes of nocturia. We discussed further treatment options and risks and benefits of these treatment options. We discussed near future in office cystoscopy for further assessment evaluation. Follow-up in 3 months with PVR; or sooner with any issues, concerns, and or questions. Orders: Orders AMB Urinalysis Automated Today R39.14 - Feeling of incomplete bladder emptying AMB Post Void Residual by ultrasound Today R39.14 - Feeling of incomplete bladder emptying RT home sleep study Today R35.1 - Nocturia Patient Instructions: The patient had an opportunity to ask questions regarding the treatment plan. All questions were answered. Physical exam, labs, and imaging were discussed and reviewed in detail. As well as risks, benefits, and discussion of treatment choices. No major barriers to understanding were identified. The patient expressed understanding and agreement with the above treatment plan. The patient was made aware they should contact our office by phone for worsening of their current condition, the appearance of new symptoms, or with any questions or concerns. Compliance is encouraged with any medications and follow up testing that is ordered. It is a privilege to be allowed the opportunity to participate in? your urological care.? Again, if you have any questions or concerns If you have any questions or concerns please do not hesitate to contact me. The office is [phone]. This note is constructed using voice recognition software. While every effort has been made to ensure accuracy waste chopper errors may have been included. Yours sincerely, ANIYAH Boothe Coding Level of Care Code Est Pt Level 4 (61467) Complex EM visit Add On G2211 Diagnoses Nocturia R35.1 Renal cyst N28.1 Enlarged prostate N40.0 Diverticulum of bladder N32.3 CPT Codes Post Residual Void - PVR CPT Code: 94681-[id number] Void Residual by ultrasound ([id number]) Time Spent (min) 25
--- OUTSIDE RECORDS SUMMARY | 2025-02-12 18:16 | XMS_ITS ---
Author Organization Gil Estrella MD Address [address] [place] [phone] Care Team Providers Care Pharmaceutical Worker Name Role Phone Gil Estrella Primary Care [...] Estrella MD [address] [place], [place] [phone] 07/31/2024 Gil Estrella Asthma J45.909 ; Myalgia, [...] Reason: Provider Name:Gil arriola, 04/13/2025 07:15:00 AM, [address] [place] [address], [address] [place] [address], [phone], Provider Name:Gil arriola, 04/20/2025 10:00:00 AM, [address] [place] [address], [address] [place] [address], [phone], Provider Name:Gil arriola, 10/12/2025 07:00:00 AM, [address] [place] [address], [address] [place] [address], [phone], Provider Name:Gil arriola, 10/19/2025 09:30:00 AM, [address] [place] [address], [address], [phone], Progress Notes * Khris FERNANDEZDOB:[birth year] (69 yo M)Acc No.[id number]:07/31/2024 Progress Notes Patient:?Khris Fernandez Provider:?Gil Estrella MD :1955???Age:69 Y???Sex:Male Kaz e:07/31/2024 Address:[address] [place] [address] , [facility] [id number] Subjective: * Chief Complaints: * ???2 month [...] Provider:?Gil Estrella MD Date:?0 07/31/2024 Generated for Aydi rachana/Arie/eTransmitting on:?02/12/2025 06:15 PM EDT History and Physical Notes * HPI (History [...]
--- OUTSIDE RECORDS SUMMARY | 2025-02-12 18:16 | XMS_ITS ---
Author Organization Gil Estrella MD Address [address] [place], [place] [phone] Care Team Providers Care Dumpling Machine Operator Name Role Phone Gil Estrella Primary Care Provider Results Component Value Reference Range Notes Complete Blood Count Auto Di ff Reviewed date:09/29/2024 04:42:51 PM Interpretation: Performing Lab:[facility], [address] [place] [phone] Notes/Report: White Blood Count 6.9 4.8-10.8 X10*3/uL [...] NRBC Abs Auto 0.000 0.0-0.012 X10*3/uL [facility] [place]. Panel Fa st Reviewed date:09/29/2024 04:43:15 PM Interpretation: Performing Lab:[address] [id number] Notes/Report: Sodium 138 135-145 mmol/L Potassium 4.4 [...] Panel Reviewed date:09/29/2024 04:27:20 PM Interpretation: Performing Lab:[address] [id number] Notes/Report: Triglycerides 85 <150 mg/dL Desirable Triglyceride: [...] (Free>4and<10) Reviewed date:09/29/2024 04:28:20 PM Interpretation: Performing Lab:[address] [id number] Notes/Report: PSA,Total (Free>4and<10) 0.75 0.00-4.00 ng/mL A [...] t Reviewed date:09/29/2024 04:42:27 PM Interpretation: Performing Lab:[facility], [address] [place] [phone] Notes/Report: Urine, Clean Catch Color Urine Yellow Appearance Urine Clear PH 6.5 5.0-9.0 Glucose Urine UA Negative Negative mg/dL Urine Blood Negative Negative Specific Center - Urine 1.015 1.005-1.025 Urine Protein Negative [...] Location Date Provider Diagnosis Gil Estrella MD [address] [place] [address] [place] [phone] 09/29/2024 Gil Estrella Blood tests for rout [...] Details Provider Name:Gil arriola, 04/13/2025 07:15:00 AM, [address] [place] [address], [address], [phone], Provider Name:Gil arriola, 04/20/2025 10:00:00 AM, [address] [place] [address], [address], [phone], Provider Name:Gil arriola, 10/12/2025 07:00:00 AM, [address] [place] [address], [address], [phone], Provider Name:Gil arriola, 10/19/2025 09:30:00 AM, [address] [place] [address], [address], [phone], Progress Notes * Khris FERNANDEZDOB:[birth year] (69 yo M)Acc No.[id number]:09/29/2024 Progress Note Patient:?Khris FERNANDEZ Provider:?Gil Estrella MD :1955???Age:69 Y???Sex:Male Kaz e:09/29/2024 Address:[address] [place], [place] [phone] Subjective: * Chief Complaints: * ???1. Yearly fasting labs. * Medical History:? Objective: * Vitals:? Assessment: * Assessment: 1.?Blood tests for routine g eneral physical examination - Z00.00 (Primary)???2.?Hypercholesteremia - E78.00???3.?Prostatism - N40.0??? Plan: * Treatment: 2.?Hypercholesteremia?LAB: Complete Blood Count Auto Diff (Collection Date & Time - 09/29/2024 07:37 AM) ?LAB: [facility] [place]. Panel Fast (Collection Date & Time - 09/29/2024 07:37 AM) ?LAB: Lipid Panel (Collection Date & Time - 09/29/2024 07:37 AM) ?LAB: PSA,Total (Free>4and<10) (Collection Date & Time - 09/29/2024 07:37 AM) ?LAB: UA ClnCatch+Micro w/rflx Cult (Collection Date & Time - 09/29/2024 07:37 AM) 3.?Prostatism?LAB: Complete Blood Count Auto Diff (Collection Date & Time - 09/29/2024 07:37 AM) ?LAB: [facility] [place]. Panel Fast (Collection Date & Time - [...] off status: Pending * Provider:?Gil Estrella MD Date:?1 11/29/2023 Generated for Kitty reich/Arie/eTmeganitting on:?02/12/2025 06:15 PM EDT
--- OUTSIDE RECORDS SUMMARY | 2025-02-12 18:16 | XMS_ITS | Patient Health Record ---
Author Organization Gil Estrella MD Address [address] [place], [place] [address] Care Team Providers Care College Archivist Name Role Phone Gil Estrella Primary Care Provider Allergies Allergen (clinical drug ingredient) Drug/Non Drug Allergy documented on EMR Reaction Allergy Type Onset Date Status Penicillin Unknown Drug Allergy Active Results Component Value Reference Range Notes CT chest wo con Reviewed date:05/29/2024 01:11:03 PM Interpretation:CBACK 05/26/24 Performing Lab: Notes/Report: [address] [address] [address] Scan Report Signed Patient: Khris Fernandez MR#: [id number] : 1955 Acct:[id number] Age/Sex: 68 / M ADM Date: 03/17/24 Loc: HO.CT Attending Dr: Gil Estrella MD Ordering Physician: Gil Estrella MD Date of Service: 03/17/24 Procedure(s): CT chest wo IV con Accession Number(s): [id number] cc: Gil Estrella MD EXAMINATION: CT CHEST [...] iterative reconstruction technique DLP: 175 mGy-cm FINDINGS: CARPET CLEANER: Unremarkable. LUNGS: A smooth solid 3 mm [...] in OV> 04/21/24 1539 DD/ 0815 TD/TT: [employer] Facer: [address] [address] [address] Scan Report Signed Patient: Parminder Fernandez MR#: [id number] : 1955 Acct:[id number] Age/Sex: 68 / M ADM Date: 03/17/24 Loc: HO.CT Attending Dr: Gil Estrella MD Ordering Physician: Gil Estrella MD Date of Service: 03/17/24 Procedure(s): CT malika st wo IV con Accession Number(s): [id number] cc: Gil Estrella MD EXAMINATION: CT CHEST [...] iterative reconstruction technique DLP: 175 mGy-cm FINDINGS: CARPET CLEANER: Unremarkable. LUNGS: A smooth leona d 3 [...] in OV> 04/21/24 1539 DD/ 0815 TD/TT: [employer] Facer: GRTEA ACEVEDO cardiolite stress test Reviewed date:08/23/2024 06:48:26 PM Interpretation: Performing Lab: Notes/Report: [address] [address] Nuclear Medicine Report Signed Patient: Khris Fernandez MR#: [id number] : 1955 Acct:[id number] Age/Sex: 69 / M ADM Date: 08/07/24 Loc: [facility] Attending Dr: Alfredo Flores MD Ordering Physician: Alfredo Flores MD Date of Service: 08/07/24 Procedure(s): NM cardiolite stress test Accession Number(s): [id number] cc: Gil Estrella MD; Alfredo Flores MD [...] Mike Tobin MD 08/22/2024 04:22 PM EDT Dictated By: Mike Tobin MD Signed By: <Electronically signed by Mike Tobin MD in OV> 08/22/24 1622 DD/ 1025 TD/TT: 08/22/24 1430 [employer] Facer: [address] [address] Nuclear Medicine Report Signed Patient: Parminder Fernandez MR#: [id number] : 1955 Acct:[id number] Age/Sex: 69 / M ADM Date: 08/07/24 Loc: HO.CARD Attending Dr: Meme Flores MD Ordering Physician: Alfredo Flores MD Date of Service: 08/07/24 Procedure(s): NM cardiolite stress test Accession Number(s): [id number] cc: Gil Estrella MD; Alfredo Flores MD EXERCISE MYOCARDIAL PERFUSION STUDY INDICATION: Precordial chest thu n to evaluate for myocardial ischemia TECHNIQUE: The patient was brou t in for an exercise perfusion study on [...] 08/22/24 1622 DD/ 1025 TD/TT: 08/22/24 1430 [employer]: US retroperitoneal comp Reviewed date:11/15/2024 03:30:02 PM Interpretation: Performing Lab: Notes/Report: [facility] [address] [place] [address] [place] [address] Ultrasound Report Signed Patient: Khris Fernandez MR#: [id number] : 1955 Acct:[id number] Age/Sex: 69 / M ADM Date: 09/05/24 [facility] Att[facility] Dr: Korina DILL Ordering Physician: Korina Ivan Date of Service: 09/05/24 Procedure(s): US retroperitoneal comp Accession Number(s): [id number] cc: Gil Estrella MD; Korina Ivan EXAMINATION: [...] Daniel Haynes MD 11/15/2024 01:05 PM EST RP Dictated By: Daniel Haynes MD Signed By: <Electronically signed by Daniel Haynes MD in OV> 11/15/24 1305 DD/ 0917 TD/TT: 09/05/24 1200 [employer] Facer: [facility] Adult [facility] [place] [address] Ultrasound Report Signed Patient: Parminder Fernandez MR#: [id number] : 1955 Acct:[id number] Age/Sex: 69 / M ADM Date: 09/05/24 [facility] Att[facility] Dr: Korina DILL Ordering Physician: Korina Ivan Date of Service: 09/05/24 Procedure(s): US retroperitoneal comp Accession Number(s): [id number] cc: Gil Estrella MD; Korina Ivan EXAMINATION: [...] Daniel Haynes MD 11/15/2024 01:05 PM EST RP Dictated By: Daniel Haynes MD Signed By: <Electronically signed by Daniel Haynes MD in OV> 11/15/24 1305 DD/ 0917 TD/TT: 09/05/24 1200 [employer] Facer: Prostate Specific Antigen Reviewed date:09/21/2024 12:59:35 PM Interpretation: Performing Lab:[facility], [address] [place] [phone] Notes/Report: Prostate Specific Antigen 0.69 <0.05-4.0 ng/mL [...] Referred Provider Specialty Gastroentero logy General Notes Lis Penn 02:15:39 PM EDT > patient will be getting back to me when he finds out who his GI doctor is, needs endoscopy done. , Lis Penn 03/06/2024 09:23:41 AM EDT > info faxed , Lis Penn 03/09/2024 09:03:41 AM EDT > [facility] [address] [facility] [address], Lis Penn 03/09/2024 11:15:01 AM EDT > info mailed to patient Referral Priority Routine Referral Appointment Date 07/06/2024 Reason discomfort in chest Diagnosis 1 Discomfort in chest (R07.89) Referral Organization Gil Estrella MD Referring Provider First Name Gil Referring Provider Last Name Sameer Referring Provider Speciality Internal M edicine Referred Provider NELLY FLORES Referred Provider [...] message [facility] Referral Priority Routine Referral Appointment Date [...] Problem Status W/U Status Risk Notes Problem 71224555 Prostatism (N40.0) Active confirmed Problem 557828022 Other ascites (R18.8) Active confirmed Problem Asthma (126759607) Asthma (J45.909) Active conf irmed Problem Sjogrens syndrome (16257983) Sjogrens syndrome (M35.00) Active confirmed Problem hypercholesterolemia (disorder) (25218408) Hypercholesteremia (E78.00) Active confirmed Problem Abnormal chest x ray (R93.89) Active confirmed Problem 36643731 Arteriosclerotic coronary artery disease (I25.10) Active confirmed Problem 246570984 Abnormal chest x-ray (R93.89) Active confirmed Vital Signs Blood pressure diastolic 60 mm Hg 10/13/2024 Height 68 in 10/13/2024 Blood pressure systolic 98 mm Hg 10/13/2024 Weight 160 lbs 10/13/2024 BMI 24.33 kg/m2 10/13/2024 Encounters Encounter Location Date Provider Diagnosis Gil Estrella MD [address] [place] [id number] 02/22/2024 Gil Estrella Other ascites R18.8 ; Abnormal chest xray R93.89 and Atypical chest pain R07.89 Gil Estrella MD [address] [place] [id number] 03/27/2024 Gil Estrella Discomfort in chest R07.89 Gil Estrella MD [address] [place] [id number] 05/29/2024 Gil Estrella Arteriosclerotic cor onary artery disease I25.10 ; Irregular breathing pattern R06.89 and Prostatism N40.0 Gil Estrella MD [address] [place] [id number] 06/08/2024 Gil Estrella Bee sting, accidenta l or unintentional, initial encounter T63.441A Gil Estrella MD [address] [place] [address] [address] [place] [id number] 07/31/2024 Gil Vegaardier Asthma J45.909 ; Jessica lgia, multiple sites M79.18 and Atypical chest pain R07.89 Gil Estrella MD [address] [place] [id number] 10/13/2024 Gil Bombardier Asthma J45.909 ; Fide ual physical exam Z00.00 ; Recurrent headache R51.9 ; Hypercholesteremia E78.00 ; Prostatism N40.0 ; Colon cancer screening Z12.11 and Depression screening Z13.31 Gil Estrella MD [address] [place] [id number] 06/08/2024 Gil Estrella MD [address] [place] [id number] 2024 Gil Bombardier Asthma J45.909 Assessments Encounter Date Diagnosis (ICD Code) Assessment Notes Treatment Notes Treatment Clinical Notes Section Notes 02/22/2024 Other ascites (ICD-1 0 - R18.8) has resolved 02/22/2024 Abnormal chest xray (ICD-10 - R93.89) discussed findings of CXR and need for chest ct in one month 03/27/2024 Discomfort in chest (ICD-10 - R07.89) referral to cardiolgy at [facility]. has been going on for 2 years with no change so not urgent at this point 05/29/2024 Arteriosclerotic coronary artery disease (ICD-10 - I25.10) discussed findings of CT scan with patient, has appt with cardiology next month. 05/29/2024 Irregular breathing pattern (ICD-10 - R06.89) order faxed to [facility] CS dept, pending diagnostic testing 06/08/2024 Bee [...] Provider Name:Gil Recio ier, 04/13/2025 07:15:00 AM, [address] [place] [address], [address], [phone], Provider Name:Gil Recio ier, 04/20/2025 10:00:00 AM, [address] [place] [address], [address], [phone], Provider Name:Gil Recio ier, 10/12/2025 07:00:00 AM, [address] [place] [address], [address], [phone], Provider Name:Gil Recio ier, 10/19/2025 09:30:00 AM, [address] [place] [address], [address], [phone], Insurance Providers Payer Name Payer Address Payer Phone Subscriber Number Group Number Insured Name Patient Relationship to Insured Coverage Start Date Coverage End Date [employer] [address] [place], [place] [phone] [id number] Khris Fernandez Self - patient is the insured Medical (General) History Medical History History ICD Code colonoscopy 2021 repeat 10 years
--- OUTSIDE RECORDS SUMMARY | 2025-02-12 18:16 | XMS_ITS ---
Author Organization Gil Estrella MD Address [address] [place], [place] [phone] Care Team Providers Care Souvenir Street Vendor Name Role Phone Gil Estrella Primary Care Provider [phone] Allergies Allergen (clinical drug ingredient) Drug/Non Drug [...] message for patient to call me to [facility] Referral Priority Routine Referral Appointment Date 10/24/2024 [...] Location Date Provider Diagnosis Gil Estrella MD [address] [place] [address] [place] [phone] 10/13/2024 Gil Estrella Asthma J45.909 ; Fide [...] Reason: Provider Name:Gil arriola, 04/13/2025 07:15:00 AM, [address] [place] [address], [address], [phone], Provider Name:Gil arriola, 04/20/2025 10:00:00 AM, [address] [place] [address], [address], [phone], Provider Name:Gil arriola, 10/12/2025 07:00:00 AM, [address] [place] [address], [address], [phone], Provider Name:Gil arriola, 10/19/2025 09:30:00 AM, [address] [place] [address], [address], [phone], Progress Notes * Kirk FERNANDEZ:[birth year] (69 yo M)Acc No.[id number]:10/13/2024 Progress Notes Patient:?Khris Fernandez Provider:?Gil Estrella MD :1955???Age:69 Y???Sex:Male Kaz e:10/13/2024 Address:[address] [place] [address] Subjective: * Chief Complaints: * ???Annual visitC/o [...] Auto 0.000 0.0-0. 012 - X10*3/uL ???Lab:[facility]prehensive [place]. P yina Fast (Order Date - 09/29/2024) [...] mg/dL ?Urine Blood Negative Negative - ?Specific [place] - Urine 1.015 1.005-1.025 - ?Urine Protein [...] Referral To:Sheeba No??Neurology ?Reason:recurrent headaches * Procedure Codes:?34410 TEST FOR BLOOD, FECES * Follow Up:?6 Months * * Sign off status: Completed true * Provider:?Gil Estrella MD Date:?1 12/14/2023 Generated for Kitty reich/Arie/Milessmitting on:?02/12/2025 06:16 PM EDT History and Physical Notes * [...]
== END 2025-02-12 16:05 | disposition home or self-care (01) ==
LOC: HO.HUSH 15:32
PROVIDERS: PCP Internal Medicine; Visit Provider Nurse Practitioner Family
DX: R35.1 Nocturia (principal); N28.1 Cyst of kidney, acquired; N40.0 Benign prostatic hyperplasia without lower urinary tract symptoms; N32.3 Diverticulum of bladder; R39.14 Feeling of incomplete bladder emptying
CPT/HCPCS: 99214

== ENCOUNTER → 2025-02-12 15:31 | Outpatient (BNVA) | payer BC, SELFPAY | PROVIDERS: PCP Internal Medicine; Visit Provider Nurse Practitioner Family | DX: N40.1 Benign prostatic hyperplasia with lower urinary tract symptoms (principal); R35.1 Nocturia; N28.1 Cyst of kidney, acquired; N32.3 Diverticulum of bladder | CPT/HCPCS: 51798; 81003 ==

== ENCOUNTER 2025-03-02 13:57 | Outpatient (AMB) | payer BC, SELFPAY ==
[2025-03-02 14:02] VITALS: BP 112/60; PULSE 86; BMI 22.8
--- NOTE | 2025-03-02 14:02 | A.OFFVIS_ITS ---
Vital Signs 03/02/25 14:02 Height 5 ft 9 in Weight 154 lb 5.177 oz BMI 22.8 BP 112/60 Blood Pressure Location Lt brachial Position Sitting Pulse 86 Pulse Source Pulse Oximeter Intake Visit Reasons: F/U Holter Allergies Penicillins Allergy (Severe, Verified 02/12/25 19:59) Wheezing Medication List - Last Reconciled 03/02/25 by Mellissa Fields NP-C aspirin (Adult Aspirin Regimen) 81 mg PO DAILY atorvastatin 20 mg PO QPM metoprolol succinate ER 12.5 mg (1/2 x 25 mg) PO DAILY 30 days HPI HPI F/U Holter: Details: Khris is a 69-year-old male with past medical history of asthma, coronary calcification on CT scan prior echo with mildly reduced EF and basal inferior akinesis, with normal nuclear stress test who recently had Holter monitor and now presents for follow-up. Today he reports he has been noticing less tapping sensation in his chest. His heart rate is also lower since the start of metoprolol. He has notice some increased fatigue and been has been taking the medication at night. No chest discomfort at rest or with activity. No shortness of breath, PND, orthopnea or edema. No lightheadedness, presyncope, syncope, falls. He reports good activity tolerance. He continues to have issues sleeping due to nocturia. He says he can get between 4 and 7 times per night then has difficulty falling asleep. He is following with Urology. [facility] Medical History Atherosclerotic cardiovascular disease Asthma Family History Mother Cancer Father Heart problem Social History Alcohol intake: former Patient Tobacco Use Status: Never used Tobacco Review of Systems Const All systems reviewed & are unremarkable except as noted in HPI and below Denies weakness ENT Denies dizziness Card Denies chest pain, Denies chest pain with activity, Denies syncope, Denies rapid heart rate, Denies pedal edema, Denies edema, Denies leg edema, Denies lightheadedness, Denies palpitations, Denies dyspnea, Denies dyspnea on exertion and Denies orthopnea Resp Denies cough, Denies dyspnea and Denies dyspnea on exertion GI Denies hematochezia and Denies change in stool character Musc Denies abnormal gait, Denies muscle cramps, Denies muscle weakness, Denies numbness, Denies radiating pain into limb and Denies tingling Neuro Denies abnormal gait, Denies dizziness, Denies syncope, Denies numbness, Denies tingling and Denies weakness Endo Denies palpitations Physical Exam Vital Signs: Last Vital Signs Pulse 86 03/02/25 14:02 BP 112/60 03/02/25 14:02 BMI result Body Mass Index 22.8 Const General: cooperative, healthy appearing, comfortable and no acute distress Orientation/consciousness: patient oriented x3 Neck Neck: Yes normal visual inspection Resp Effort & Inspection: normal respiratory effort Auscultation: clear to auscultation bilaterally, no rales, no rhonchi and no wheezes Cardio Rate: regular rate Rhythm: regular rhythm Heart sounds: S1 normal heart sound present, S2 normal heart sound present, no murmurs and no rubs Neuro General: patient oriented x3 Extrem General: Yes normal to inspection, No no pedal edema and No calf tenderness Psych Appearance: grossly normal Mental Status: mental status grossly normal Speech and movement: Normal speech and movement present Assessment & Plan Assessment & Plan (1) Atherosclerotic cardiovascular disease: Code(s): I25.10 - Atherosclerotic heart disease of [place] coronary artery without angina pectoris Category: Medical Plan: CT scan of the chest done 03/17/2024 showing moderate coronary artery disease predominantly in the LAD. An echocardiogram had been done 01/14/2024 showing EF 45-50%, basal inferior segment akinetic. He underwent an exercise nuclear stress test on 08/07/2024 with exercise 7 minutes, no anginal symptoms and no EKG changes of ischemia, normal myocardial perfusion imaging. He has no anginal sounding symptoms. Due to a concern for heart palpitations he underwent a repeat echocardiogram on 01/11/2025 which showed EF 50-55%, grade 1 diastolic dysfunction, there is no mention of regional wall motion abnormality. He was recently started on low-dose metoprolol which I will have him continue. Continue daily aspirin, continue atorvastatin with ideal LDL goal less than 70. Signs and symptoms of angina reviewed. Continue risk factor modification. Cardiology follow-up 6 months, sooner if needed. (2) Cardiomyopathy: Code(s): I42.9 - Cardiomyopathy, unspecified Category: Medical Plan: Mild Nonischemic cardiomyopathy seen on prior echo. Repeat echo recently done showing EF low normal. Unclear reason for his mildly reduced EF. He does not drink alcohol. He has no concerns about sleep apnea but does have nocturia and is up 4-7 times per night and has difficulty falling asleep. His blood pressure is low normal. Continue metoprolol. Continue activity as tolerated. (3) Palpitation: Code(s): R00.2 - Palpitations Category: Medical Plan: Reports of intermittent tapping sensation with his heart. A Holter monitor done 01/11/2025 showed sinus rhythm with average heart rate 94, sinus tach 27% of the time. With his elevated heart rate and mildly reduced EF he was started on a low-dose of metoprolol XL 12.5 mg daily. His resting heart rate is now in the 80s and palpitations are less. Plan Time spent on chart review, documentation, interview, assessment Coding Level of Care Code Est Pt Level 4 (65911) Complex EM visit Add On G2211 Diagnoses Atherosclerotic cardiovascular disease I25.10 Cardiomyopathy I42.9 Palpitation R00.2 Time Spent (min) 28
== END 2025-03-02 14:32 | disposition home or self-care (01) ==
LOC: HO.HCS 13:58
PROVIDERS: PCP Internal Medicine; Visit Provider Nurse Practitioner Family
DX: I25.10 Atherosclerotic heart disease of native coronary artery without angina pectoris (principal); I42.9 Cardiomyopathy, unspecified; R00.2 Palpitations
CPT/HCPCS: 99214

== ENCOUNTER 2025-04-13 11:32 | Outpatient (REF) | payer BC, SELFPAY ==
--- OUTSIDE RECORDS SUMMARY | 2025-04-13 12:17 | XMS_ITS ---
Author Organization Gil Estrella MD Address [address] [place], [place] [phone] Care Team Providers Care Unit Educator Name Role Phone Gil Estrella Primary Care Provider Results Component Value Reference Range Notes Complete Blood Count Auto Di ff Reviewed date:09/29/2024 04:42:51 PM Interpretation: Performing Lab:[facility], [address] [place] [phone] Notes/Report: White Blood Count 6.9 4.8-10.8 X10*3/uL [...] NRBC Abs Auto 0.000 0.0-0.012 X10*3/uL Comprehensive [place]. Panel Fa st Reviewed date:09/29/2024 04:43:15 PM Interpretation: Performing Lab:[address] [phone] Notes/Report: Sodium 138 135-145 mmol/L Potassium 4.4 [...] Panel Reviewed date:09/29/2024 04:27:20 PM Interpretation: Performing Lab:[address] [phone] Notes/Report: Triglycerides 85 <150 mg/dL Desirable Triglyceride: [...] (Free>4and<10) Reviewed date:09/29/2024 04:28:20 PM Interpretation: Performing Lab:[address] [phone] Notes/Report: PSA,Total (Free>4and<10) 0.75 0.00-4.00 ng/mL A [...] t Reviewed date:09/29/2024 04:42:27 PM Interpretation: Performing Lab:[facility], [address] [place] [phone] Notes/Report: Urine, Clean Catch Color Urine Yellow Appearance Urine Clear PH 6.5 5.0-9.0 Glucose Urine UA Negative Negative mg/dL Urine Blood Negative Negative Specific [place] - Urine 1.015 1.005-1.025 Urine Protein Negative [...] Location Date Provider Diagnosis Gil Estrella MD [address] [place] [address] Drive [address] [place] [phone] 09/29/2024 Gil Estrella Blood tests for rout ine general physical examination Z00.00 ; Hypercholesteremia E78.00 and Prostatism N40.0 Assessments Encounter Date Diagnosis (ICD Code) Assessment Notes Treatment Notes Treatment Clinical Notes Section Notes 09/29/2024 Blood tests for routine general physical examination (ICD-10 - Z00.00) 09/29/2024 Hypercholesteremia (ICD-10 - E78.00) 09/29/2024 Prostatism (ICD-10 - N40.0) Plan Of Treatment Next Appt Details Provider Name:Gil arriola, 04/20/2025 10:00:00 AM, [address] [place] [address], Suite [facility], [place], [place], [phone], Provider Name:Gil arriola, 10/12/2025 07:00:00 AM, [address] [place] [address], Suite [facility], [place], [place], [phone], Provider Name:Gil arriola, 10/19/2025 09:30:00 AM, [address] [place] [address], Suite [facility], [place], [place], [phone], Progress Notes * Khris FERNANDEZDOB:[birth year] (69 yo M)Acc No.[id number]:09/29/2024 Progress Note Patient:?Khris FERNANDEZ Provider:?Gil Estrella MD :1955???Age:69 Y???Sex:Male Kaz e:09/29/2024 Address:[address] [place], [place] [phone] Subjective: * Chief Complaints: * ???1. Yearly fasting labs. * Medical History:? Objective: * Vitals:? Assessment: * Assessment: 1.?Blood tests for routine g eneral physical examination - Z00.00 (Primary)???2.?Hypercholesteremia - E78.00???3.?Prostatism - N40.0??? Plan: * Treatment: 2.?Hypercholesteremia?LAB: Complete Blood Count Auto Diff (Collection Date & Time - 09/29/2024 07:37 AM) ?LAB: [facility] [place]. Panel Fast (Collection Date & Time - 09/29/2024 07:37 AM) ?LAB: Lipid Panel (Collection Date & Time - 09/29/2024 07:37 AM) ?LAB: PSA,Total (Free>4and<10) (Collection Date & Time - 09/29/2024 07:37 AM) ?LAB: UA ClnCatch+Micro w/rflx Cult (Collection Date & Time - 09/29/2024 07:37 AM) 3.?Prostatism?LAB: Complete Blood Count Auto Diff (Collection Date & Time - 09/29/2024 07:37 AM) ?LAB: [facility] [place]. Panel Fast (Collection Date & Time - [...] Estrella MD Date:?1 11/29/2023 Generated for Kitty reich/Arie/Rodyitting on:?04/13/2025 12:17 PM EDT
[2025-04-13 13:33] LABS: Alanine Aminotransferase 27 U/L (0-40); Albumin Level 4.2 g/dL (3.5-5.0); Alkaline Phosphatase 62 U/L (39-117); Aspartate Amino Transferase 27 U/L (5-37); Bilirubin Direct 0.2 mg/dL (0.0-0.5); Bilirubin Total 0.5 mg/dL (0.0-1.0); Cholesterol 191 mg/dL (<200); HDL Cholesterol 41 mg/dL (>40); LDL Cholesterol Calculated 127 mg/dL (<100); Total Protein 7.2 g/dL (6.5-8.0); Triglycerides 118 mg/dL (<150)
[2025-04-13 15:16] LABS: Reflex LDLD? No
== END 2025-04-13 11:33 | disposition home or self-care (01) ==
LOC: HO.LNP 11:32
PROVIDERS: Visit Provider Internal Medicine
DX: E78.00 Pure hypercholesterolemia, unspecified (principal)
CPT/HCPCS: 80061; 80076

== ENCOUNTER 2025-08-28 13:37 | Outpatient (AMB) | payer BC, SELFPAY ==
--- NOTE | 2025-08-28 13:58 | A.OFFVIS_ITS ---
Vital Signs 08/28/25 13:59 Height 5 ft 9 in Weight 156 lb 1.396 oz BMI 23.0 BP 80/62 L Blood Pressure Location Lt brachial Position Sitting Pulse 102 H Pulse Source Monitor Intake Visit Reasons: 6 mth f/up Hand Thermal Cutter Required: No Allergies Penicillins Allergy (Severe, Verified 08/28/25 14:03) Wheezing Medication List - Last Reconciled 08/28/25 by Mellissa Fields NP-Gretta aspirin (Adult Aspirin Regimen) 81 mg PO DAILY metoprolol succinate ER 12.5 mg (1/2 x 25 mg) PO DAILY HPI HPI 6 mth f/up: Details: Khris is a 70-year-old male with past medical history of asthma, coronary calcification on CT scan, low normal EF, normal nuclear stress test who presents for follow-up. Today he reports he has been experiencing increasing fatigue. He has daytime sleepiness and tells me that his urologist has ordered a sleep study on him whi ch is scheduled next month. 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 He is noticing some newer leg fatigue with ambulation. He says it feels like his legs actually go numb when walking. He denies back pain or sciatic issues. He has no leg cramps with ambulation but does get them at rest periodically. No chest discomfort at rest or with activity. No shortness of breath, PND, orthopnea or edema. No lightheadedness, presyncope, syncope, falls. He had significant muscle aching with use of atorvastatin and stopped it approximately 2 months ago. His symptoms then did resolve. He ran out of metoprolol a few weeks ago but now has it on hand but has not started it yet. He drank 1 glass of water mixed with ice tea today. He says usually he has about 3 per day. His blood pressure initially is low however he has no symptoms of lightheadedness. [facility] Medical History Atherosclerotic cardiovascular disease Asthma Family History Mother Cancer Father Heart problem Social History Alcohol intake: former Patient Tobacco Use Status: Never used Tobacco Review of Systems Const All systems reviewed & are unremarkable except as noted in HPI and below Reports fatigue ENT Denies dizziness Card Denies chest pain, Denies chest pain at rest, Denies chest pain with activity, Denies rapid heart rate, Denies pedal edema, Denies edema, Denies leg edema, Denies lightheadedness, Denies palpitations, Denies dyspnea, Denies dyspnea on exertion and Denies orthopnea Resp Denies cough, Denies dyspnea and Denies dyspnea on exertion GI Denies hematochezia and Denies change in stool character Musc Details: let fatigue with walking Denies abnormal gait, Denies limited range of motion, Reports muscle cramps (only when at rest at times - not with walking), Denies muscle weakness, Denies numbness, Denies radiating pain into limb, Denies stiffness and Denies tingling Neuro Denies abnormal gait, Denies dizziness, Denies numbness and Denies tingling Endo Reports fatigue and Denies palpitations Physical Exam Vital Signs: Last Vital Signs Pulse 102 H 08/28/25 13:59 BP 80/62 L 08/28/25 13:59 BMI result Body Mass Index 23.0 Const General: cooperative, healthy appearing, comfortable and no acute distress Orientation/consciousness: patient oriented x3 Neck Neck: Yes normal visual inspection Resp Effort & Inspection: normal respiratory effort Auscultation: clear to auscultation bilaterally, no rales, no rhonchi and no wheezes Cardio Rate: regular rate Rhythm: regular rhythm Heart sounds: S1 normal heart sound present, S2 normal heart sound present, no murmurs and no rubs Neuro General: patient oriented x3 Extrem General: Yes normal to inspection, No no pedal edema and No calf tenderness Psych Appearance: grossly normal Mental Status: mental status grossly normal Speech and movement: Normal speech and movement present Office Procedures EKG Details: Today, read by me, sinus tachycardia, rate 102, QTC 443 milliseconds [id number], Complete Assessment & Plan Assessment & Plan (1) Atherosclerotic cardiovascular disease: Code(s): I25.10 - Atherosclerotic heart disease of [place] coronary artery without angina pectoris Category: Medical Plan: CT scan of the chest done 03/17/2024 showing moderate coronary artery disease predominantly in the LAD. An echocardiogram had been done 01/14/2024 showing EF 45-50%, basal inferior segment akinetic. He underwent an exercise nuclear stress test on 08/07/2024 with exercise 7 minutes, no anginal symptoms and no EKG changes of ischemia, normal myocardial perfusion imaging. He has no anginal sounding symptoms. Repeat echocardiogram on 01/11/2025 which showed EF 50-55%, grade 1 diastolic dysfunction, there is no mention of regional wall motion abnormality. He was put on low-dose metoprolol XL. Currently no anginal symptoms or signs of heart failure. EKG today showing sinus tachycardia. Instructed to restart the metoprolol which he recently ran out of. Continue daily aspirin. Intolerant to atorvastatin with myalgias. Will try Zetia 10 mg daily with fasting lipids 6-8 weeks. Continue risk factor modification. Signs and symptoms of angina reviewed with him. Cardiology follow-up 6 months, sooner if needed. (2) Cardiomyopathy: Code(s): I42.9 - Cardiomyopathy, unspecified Category: Medical Plan: Mild Nonischemic cardiomyopathy seen on prior echo. Repeat echo recently done showing EF low normal. Unclear reason for his mildly reduced EF. He does not drink alcohol. He does not sleep well at night and sleep study is pending. Continue metoprolol. Continue activity as tolerated. (3) Palpitation: Code(s): R00.2 - Palpitations Category: Medical Plan: Prior reports of heart palpitations. Holter monitor done 01/11/2025 showed sinus rhythm with average heart rate 94, sinus tach 27% of the time. With his elevated heart rate and mildly reduced EF he was started on a low-dose of metoprolol XL 12.5 mg daily which he states helped his resting heart rate go into the 80s. Recommend he continue metoprolol. (4) Leg fatigue: Code(s): R29.898 - Other symptoms and signs involving the musculoskeletal system Category: Medical Plan: Reports of leg fatigue/numbness feeling with prolonged ambulation. Symptoms not sounding like claudication. May be related to deconditioning. Suggest he further discuss with his PCP. (5) Daytime sleepiness: Code(s): R40.0 - Somnolence Category: Medical Plan: Reports of daytime sleepiness. Sleep study is pending. (6) Low blood pressure reading: Code(s): R03.1 - Nonspecific low blood-pressure reading Category: Medical Plan: Initial blood pressure reading low this visit at 80/62 as checked by the medical review specialist. He was given 8 oz of water. I did check his blood pressure manually later in the visit and got 108/68. Unclear accuracy of the initial reading. Reviewed the need for good hydration with him. Plan Time spent on chart review, documentation, interview, assessment Coding Level of Care Code Est Pt Level 4 (34822) Complex EM visit Add On G2211 Diagnoses Atherosclerotic cardiovascular disease I25.10 Cardiomyopathy I42.9 Palpitation R00.2 Leg fatigue R29.898 Daytime sleepiness R40.0 Low blood pressure reading R03.1 CPT Codes EKG - CPT: 80971-[id number], Complete ([id number]) Time Spent (min) 32
[2025-08-28 13:59] VITALS: BP 80/62; PULSE 102; BMI 23.0
== END 2025-08-28 14:40 | disposition home or self-care (01) ==
LOC: HO.HCS 13:38
PROVIDERS: PCP Internal Medicine; Visit Provider Nurse Practitioner Family
DX: I25.10 Atherosclerotic heart disease of native coronary artery without angina pectoris (principal); I42.9 Cardiomyopathy, unspecified; R00.2 Palpitations; R29.898 Other symptoms and signs involving the musculoskeletal system; R40.0 Somnolence; R03.1 Nonspecific low blood-pressure reading
CPT/HCPCS: 93010; 99214

== ENCOUNTER → 2025-08-28 13:37 | Outpatient (BNVA) | payer BC, SELFPAY | PROVIDERS: PCP Internal Medicine; Visit Provider Nurse Practitioner Family | DX: I25.10 Atherosclerotic heart disease of native coronary artery without angina pectoris (principal); R00.2 Palpitations; I42.9 Cardiomyopathy, unspecified | CPT/HCPCS: 93005 ==

== ENCOUNTER → 2025-10-02 11:15 | Outpatient (REF) | payer BC, SELFPAY ==
--- OUTSIDE RECORDS SUMMARY | 2024-06-08 09:22 | XMS_ITS ---
Author Organization Gil Estrella MD Address [address] [place] [address] [place] [phone] Care Team Providers Care Windows Infrastructure Engineer Name Role Phone Gil Estrella Primary Care Provider [phone] REASON FOR VISIT multiple bee stings Encounters Encounter Location Date Provider Diagnosis Gil Estrella MD [address] [place] [address] [place] [phone] 06/08/2024 Gil Estrella Plan Of Treatment Next Appt Details Provider Name:Gil Recio ier, 10/12/2025 07:00:00 AM, [address] [place] [address], [place] [address], [place], [place], [phone], Provider Name:Gil Recio ier, 10/26/2025 08:00:00 AM, [address] [place] [address], [place] [address], [place], [place], [phone], Progress Notes * Khris FERNANDEZDOB:[birth year] (68 yo M)Acc No.[id number]:06/08/2024 Patient: Khris Rojas :1955 A ge:68 Y S ex:Male Address:[address] [place] [address], [id number] * true * Date: Generated for Printi ng/Faxing/eTransmitting on: 12/02/2024 02:56 PM EST
--- OUTSIDE RECORDS SUMMARY | 2024-06-08 10:00 | XMS_ITS ---
Author Organization Gil Estrella MD Address [address] [place], [place] [phone] Care Team Providers Care Senior Applications Engineer Name Role Phone Gil Estrella Primary Care Provider [phone] Allergies Allergen (clinical drug ingredient) Drug/Non Drug Allergy documented on EMR Reaction Allergy Type Onset Date Status Penicillin Unknown Drug Allergy Active REASON FOR VISIT Bee stings x25 2-3 hours ago left ankle very painful Took 1 Benadryl and Motrin, Video Medications Medication SIG (Take, Route, Frequency, Duration) Notes Start Date End Date Status Aspir-Low 81 MG 1 tablet Orally Once a day for 30 day(s) 05/29/2024 Active Fluticasone Propionate 50 MCG/ACT SPRAY SPRAY 1 SPRAY INTO EACH NOSTRIL EVERY DAY FOR 30 DAYS Active Celecoxib 200 MG 1 capsule with food Orally Once a day 01/04/2023 Not-Taking Montelukast Sodium 10 MG 1 tablet Orally Once a day Not-Taking Tamsulosin HCl 0.4 MG TAKE 1 CAPSULE BY MOUTH EVERY DAY FOR 30 DAYS for 90 Not-Taking ProAir HFA 108 (90 Base) MCG/ACT 1 puff as needed Inhalation every 4 hrs Active Vital Signs Blood pressure systolic 106 mm Hg 06/08/20 24 Blood pressure diastolic 79 mm Hg 024 Height 68 in 06/08/2024 Weight 160 lbs 06/08/2024 BMI 24.33 kg/m2 06/08/2024 weight is 160 BP 106/79 Encounters Encounter Location Date Provider Diagnosis Gil Estrella MD [address] [place], [place] [phone] 06/08/2024 Gil Estrella Bee sting, accidental or unintentional, initial encounter T63.441A Assessments Encounter Date Diagnosis (ICD Code) Assessment Notes Treatment Notes Treatment Clinical Notes Section Notes 06/08/2024 Bee sting, accidental or unintentional, initial encounter (ICD-10 - T63.441A) not allergic but still use benedrl and ibuprofen for pain Plan Of Treatment Treatment Notes Assessment Notes Bee sting, accidental or uni ntentional, initial encounter not allergic but still use benedrl and ibuprofen for pain Next Appt Details Provider Name:Gil Recio ier, 10/12/2025 07:00:00 AM, [address], [address], [place], [place], [phone], Provider Name:Gil Recio ier, 10/26/2025 08:00:00 AM, [address], [address], [place], [place], [phone], Progress Notes * Khris FERNANDEZDOB:[birth year] (68 yo M)Acc No.[id number]:06/08/2024 Patient: Khris Rojas Provider: Brent Estrella MD :1955 A ge:68 Y S ex:Male Date:06/08/2024 Address:[address] [place], [place] [phone] Subjective: * Chief Complaints: * B ee stings x25 2-3 hours ago left ankle very painful Took 1 Benadryl and MotrinVideo * HPI: S ymptom(s): Telehealth L ocation of provider rendering services: [address], [address], L ocation of patient: a t address listed in demographics for today's visit, P atient identification confirmed using: N BRAYDEN chavez, SSN, Insurance information, T elehealth method: V ideo conference where patient is visible to the provider of care, C onsent: P atient verbally consented to treatment, Patient verbally consented to billing insurance company, Patient informed of any privacy concerns related to method of visit. patient is a 68 yo male video telehealth visit, got stung about 10 times one hurts severely. not allergic. took benedryl . tried ice. just worried about the pain. if heart starts racing to call 911. * ROS: G eneral/Constitutional: Denies C hills. D enies F atigue. D enies F ever. D enies H eadache. E NT: Patient denies d ecreased sense of smell , any loss of taste , sore throat. D enies S ore throat. R espiratory: Denies C ough. D enies S hortness of breath at rest. D enies S hortness of breath with exertion. G astrointestinal: Denies D iarrhea. D enies N ausea. M usculoskeletal: Patient denies m uscle aches. P eripheral Vascular: Patient denies r ed and blue toes. * Medical History: * Surgical History: * Hospitalization/Major Diagno stic Procedure: * Medications: T akingProAir HFA 108 (90 Base) MCG/ACT Aerosol Solution 1 puff as needed Inhalation every 4 hrsFluticasone Propionate 50 MCG/ACT Suspension SPRAY SPRAY 1 SPRAY INTO EACH NOSTRIL EVERY DAY FOR 30 DAYS Aspir-Low 81 MG Tablet Delayed Release 1 tablet Orally Once a dayTaking ProAir HFA 108 (90 Base) MCG/ACT Aerosol Solution 1 puff as needed Inhalation every 4 hrsTaking Fluticasone Propionate 50 MCG/ACT Suspension SPRAY SPRAY 1 SPRAY INTO EACH NOSTRIL EVERY DAY FOR 30 DAYS Taking Aspir-Low 81 MG Tablet Delayed Release 1 tablet Orally Once a dayNot-Taking/PRNMontelukast Sodium 10 MG Tablet 1 tablet Orally Once a dayCelecoxib 200 MG Capsule 1 capsule with food Orally Once a dayTamsulosin HCl 0.4 MG Capsule TAKE 1 CAPSULE BY MOUTH EVERY DAY FOR 30 DAYS Medication List reviewed and reconciled with the patientNot-Taking/PRN Montelukast Sodium 10 MG Tablet 1 tablet Orally Once a dayNot-Taking/PRN Celecoxib 200 MG Capsule 1 capsule with food Orally Once a dayNot-Taking/PRN Tamsulosin HCl 0.4 MG Capsule TAKE 1 CAPSULE BY MOUTH EVERY DAY FOR 30 DAYS Medication List reviewed and reconciled with the patient * Allergies: P enicillinyes[Allergies Verified] Objective: * Vitals: H t: 68, Wt:160, BMI:24.33, BP:106/79 weight is 160 BP 106/79. * Examination: G eneral Examination: GENERAL APPEARANCE: alert, well hydrated, in no distress . Assessment: * Assessment: 1. B ee sting, accidental or unintentional, initial encounter - T63.441A (Primary) Plan: * Treatment: * Procedure Codes: * * Sign off status: Completed true * Provider: Brent Estrella MD Date: 0 06/08/2024 Generated for Kitty reich/Arie/eTransmitting on: 1 12/02/2024 02:55 PM EST History and Physical Notes * HPI (History of Present Illness) Category Sub-Category Detail Notes Category Not es Symptom(s) Telehealth Location of [facility] rendering services:: [address], [address] patient is a 68 yo male video telehealth visit, got stung about 10 times one hurts severely. not allergic. took benedryl . tried ice. just worried about the pain. if heart starts racing to call 911 Location of patient:: at address listed in demographics for today's visit Patient identification confirmed using:: Name, , SSN, Insurance information Telehealth method:: Video co nference where patient is visible to the provider of care Consent:: Patient verbally c onsented to treatment, Patient verbally consented to billing insurance company, Patient informed of any privacy concerns related to method of visit Examination Category Sub-Category Detail Notes Category Not es General Examination GENERAL APPEARANCE: alert, w ell hydrated, in no distress
--- OUTSIDE RECORDS SUMMARY | 2024-07-03 05:13 | XMS_ITS ---
Author Organization Gil Estrella MD Address [address] [place] [phone] Care Team Providers Care Ham Clerk Name Role Phone Gil Estrella Primary Care Provider [phone] REASON FOR VISIT refill Medications Medication SIG (Take, Route, Frequency, Duration) Notes Start Date End Date Status ProAir HFA 108 (90 Base) MCG/ACT 1 puff as needed Inhalation every 4 hrs for 30 days Active Encounters Encounter Location Date Provider Diagnosis Gil Estrella MD [address] [place] [phone] 2024 Gil Estrella Asthma J45.909 Assessments Encounter Date Diagnosis (ICD Code) Assessment Notes Treatment Notes Treatment Clinical Notes Section Notes 2024 Asthma (ICD-10 - J45.909) Plan Of Treatment Medication Medication Name Sig Start Date Stop Date Notes ProAir HFA 108 (90 Base) MCG/ACT 1 puff as needed Inhalation every 4 hrs for 30 days Next Appt Details Provider Name:Gil arriola, 10/12/2025 07:00:00 AM, [address] [place] [address], [address] [place] [address], [phone], Provider Name:Gil arriola, 10/26/2025 08:00:00 AM, [address] [place] [address], [address], [phone], Progress Notes * Khris FERNANDEZDOB:[birth year] (69 yo M)Acc No.[id number]:[id number] Patient: Khris Rojas :1955 A ge:69 Y S ex:Male Address:[address] [place] [address], [address] * Refills Refill ProAir HFA Aerosol Solution, 108 (90 Base) MCG/ACT, Inhalation, 1, 1 puff as needed, every 4 hrs, 30 days, Refills=3 * true * Date: Generated for Kitty reich/Arie/Milessmitting on: 12/02/2024 02:54 PM EST
--- OUTSIDE RECORDS SUMMARY | 2024-07-31 06:00 | XMS_ITS ---
Author Organization Gil Estrella MD Address [address] [place] [id number] Care Team Providers Care Cafeteria Counter Attendant Name Role Phone Gil Estrella Primary Care Provider [phone] Allergies Allergen (clinical drug ingredient) Drug/Non Drug Allergy documented on EMR Reaction Allergy Type Onset Date Status Penicillin Unknown Drug Allergy Active REASON FOR VISIT 2 month Medications Medication SIG (Take, Route, Frequency, Duration) Notes Start Date End Date Status Celecoxib 200 MG 1 capsule with food Orally Once a day 01/04/2023 Not-Taking Fluticasone Propionate 50 MCG/ACT SPRAY SPRAY 1 SPRAY INTO EACH NOSTRIL EVERY DAY FOR 30 DAYS Active Atorvastatin Calcium 20 MG 1 tablet Orally Once a day for 30 day(s) Active Tamsulosin HCl 0.4 MG TAKE 1 CAPSULE BY MOUTH EVERY DAY FOR 30 DAYS for 90 Not-Taking ProAir HFA 108 (90 Base) MCG/ACT 1 puff as needed Inhalation every 4 hrs Active Montelukast Sodium 10 MG 1 tablet Orally Once a day Not-Taking Aspir-Low 81 MG 1 tablet Orally Once a day for 30 day(s) 05/29/2024 Active Immunizations Vaccine Route Administration Date Status Comme nts Influenza High Dose Unknown 07/31/2024 Refused Vital Signs Blood pressure systolic 94 mm Hg 07/31/20 24 Blood pressure diastolic 60 mm Hg 024 Height 68 in 07/31/2024 Weight 158 lbs 07/31/2024 BMI 24.02 kg/m2 07/31/2024 Encounters Encounter Location Date Provider Diagnosis Gil Estrella MD [address] [place], [place] [phone] 07/31/2024 Gil Estrella Asthma J45.909 ; Myalgia, multiple sites M79.18 and Atypical chest pain R07.89 Assessments Encounter Date Diagnosis (ICD Code) Assessment Notes Treatment Notes Treatment Clinical Notes Section Notes 07/31/2024 Asthma (ICD-10 - J45.909) has a tickliish cough which is probably an asthma variant 07/31/2024 Myalgia, multiple sites (ICD-10 - M79.18) will try coenzyme. may need repatha 07/31/2024 Atypical chest pain (ICD-10 - R07.89) waiting for stress test in september Plan Of Treatment Medication Medication Name Sig Start Date Stop Date Notes ProAir HFA 108 (90 Base) MCG/ACT 1 puff as needed Inhalation every 4 hrs Treatment Notes Assessment Notes Asthma has a tickliish coug h which is probably an asthma variant Myalgia, multiple sites will try coenzym e. may need repatha Atypical chest pain waiting for stress t est in september Next Appt Details Follow Up: 3 Months, Reason: Provider Name:Gil arriola, 10/12/2025 07:00:00 AM, [address], [address], [place], [place], [phone], Provider Name:Gil arriola, 10/26/2025 08:00:00 AM, [address], [address], [place], [place], [id number], Progress Notes * Khris FERNANDEZDOB:[birth year] (69 yo M)Acc No.[id number]:07/31/2024 Progress Notes Patient: Khris Rojas Provider: Brent Estrella MD :[id number] A ge:69 Y S ex:Male Date:07/31/2024 Address:[address] [place] [address] Subjective: * Chief Complaints: * 2 month * HPI: S ymptom(s): patient is a 69 yo male here for 2 month follow up visit, still getting sharp random left chest pain lasting 10 seconds. has still getting coughing in the back of throat feels like a dry spot in back of throat. * ROS: G eneral/Constitutional: Denies C hills. D enies F atigue. D enies F ever. D enies H eadache. E NT: Patient denies d ecreased sense of smell , any loss of taste , sore throat. D enies S ore throat. R espiratory: Denies C ough. D enies S hortness of breath at rest. D enies S hortness of breath with exertion. C ardiovascular: Denies C hest pain at rest. D enies C hest pain with exertion. D enies D izziness. D enies P alpitations. D enies S hortness of breath. G astrointestinal: Denies D iarrhea. D enies N ausea. M usculoskeletal: Patient denies m uscle aches. P eripheral Vascular: Patient denies r ed and blue toes. * Medical History: * Surgical History: * Hospitalization/Major Diagno stic Procedure: * Medications: T akingAtorvastatin Calcium 20 MG Tablet 1 tablet Orally Once a dayFluticasone Propionate 50 MCG/ACT Suspension SPRAY SPRAY 1 SPRAY INTO EACH NOSTRIL EVERY DAY FOR 30 DAYS Aspir-Low 81 MG Tablet Delayed Release 1 tablet Orally Once a dayProAir HFA 108 (90 Base) MCG/ACT Aerosol Solution 1 puff as needed Inhalation every 4 hrsTaking Atorvastatin Calcium 20 MG Tablet 1 tablet Orally Once a dayTaking Fluticasone Propionate 50 MCG/ACT Suspension SPRAY SPRAY 1 SPRAY INTO EACH NOSTRIL EVERY DAY FOR 30 DAYS Taking Aspir-Low 81 MG Tablet Delayed Release 1 tablet Orally Once a dayTaking ProAir HFA 108 (90 Base) MCG/ACT Aerosol Solution 1 puff as needed Inhalation every 4 hrsNot-Taking/PRNMontelukast Sodium 10 MG Tablet 1 tablet Orally [...] Verified] Objective: * Vitals: H t: 68, Wt:158, BMI:24.02, BP:94/60. * Examination: G eneral Examination: GENERAL APPEARANCE: alert, well hydrated, in no distress . HEAD: normocephalic. SKIN: good turgor. HEART: no murmurs, rubs, gallops, regular rate and rhythm. LUNGS: no wheezes, rales, rhonchi, good air movement, clear to auscultation bilaterally. Assessment: * Assessment: 1. A sthma - J45.909 (Primary) 2 . M yalgia, multiple sites - M79.18 3 . A typical chest pain - R07.89 Plan: * Treatment: 2. M yalgia, multiple sites Notes: will try coenzyme. may need repatha 3. A typical chest pain Notes: waiting for stress test in september * Immunizations: Influenza High Dose (Not administered - Refused: Patient decision) * Procedure Codes: * Preventive Medicine: Immunizations: I nfluenza H ave you had a flu shot since the most recent July 09? N o patient refused at visit today. * Follow Up: 3 Months * * Sign off status: Completed true * Provider: Brent Estrella MD Date: 0 07/31/2024 Generated for Kitty reich/Arie/Milessmitting on: 12/02/2024 02:55 PM EST History and Physical Notes * HPI (History of Present Illness) Category Sub-Category Detail Notes Category Not es Symptom(s) patient is a 69 yo male here for 2 month follow up visit, still getting sharp random left chest pain lasting 10 seconds. has still getting coughing in the back of throat feels like a dry spot in back of throat Examination Category Sub-Category Detail Notes Category Not es General Examination GENERAL APPEARANCE: alert, w ell hydrated, in no distress HEAD: normocephalic HEART: no murmurs, rubs, ga llops, regular rate and rhythm LUNGS: no wheezes, rales, r honchi, good air movement, clear to auscultation bilaterally SKIN: good turgor
--- OUTSIDE RECORDS SUMMARY | 2024-09-29 02:15 | XMS_ITS ---
Author Organization Gil Estrella MD Address [address] [place], [place] [id number] Care Team Providers Care Retirement Sales Consultant Name Role Phone Gil Estrella Primary Care Provider Results Component Value Reference Range Notes Complete Blood Count Auto Di ff Reviewed date:09/29/2024 04:42:51 PM Interpretation: Performing Lab:[facility], [address] [place] [id number] Notes/Report: White Blood Count 6.9 4.8-10.8 X10*3/uL Red Blood Count 4.37 4.60-5.80 X10*6/uL Hemoglobin 14.1 14.0-18.0 g/dl Hematocrit 39.8 42.0-52.0 % Mean Corpuscular Volume 91.1 80.0-98.0 fL Mean Corpuscular Hemoglobin 32.3 27.0-33.0 pg Mean Corpuscular HGB Conc 35.4 31.0-36.0 g/dl Red Cell Distribution Width 12.3 11.0-16.0 % Platelet Count 199 160-400 X10*3/uL Mean Platelet Volume 8.7 9.4-12.4 fL Neutrophils Percent Auto 48.6 45-73 % Imm Gran Pct Auto 0.3 0.0-0.4 % Lymphocytes Percent Auto 31.6 20-40 % Monocytes Percent Auto 11.5 2-11 % Eosinophils Percent Auto 7.3 0-4 % Basophils Percent Auto 0.7 0-2 % NRBC Pct Auto 0.0 0.0-0.2 /100WBC Neutrophils Absolute Auto 3.3 2.0-8.3 x10*3/u L Imm Gran Abs Auto 0.02 0.00-0.03 X10*3/uL Lymphocytes Absolute Auto 2.2 1.2-4.9 X10*3/u L Monocytes Absolute Auto 0.8 0.1-1.2 X10*3/uL Eosinophils Absolute Auto 0.5 0.0-0.4 X10*3/u L Basophils Absolute Auto 0.1 0.0-0.2 X10*3/uL NRBC Abs Auto 0.000 0.0-0.012 X10*3/uL Comprehensive [place]. Panel Fa st Reviewed date:09/29/2024 04:43:15 PM Interpretation: Performing Lab:[address] [phone] Notes/Report: Sodium 138 135-145 mmol/L Potassium 4.4 3.3-5.1 mmol/L Chloride 106 96-108 mmol/L Carbon Dioxide 25 22-29 mmol/L Anion Gap 11 12-20 Blood Urea Nitrogen 17 9-16 mg/dL Creatinine 0.89 0.5-1.4 mg/dL Estimated Glomerular Filt Rate > 60 Chronic Kidney Disease: Estimated GFR < 60 mL/min/1.73m2 Severe Kidney Disease: Estimated GFR < 15 mL/min/1.73m2 Glucose Fasting 109 60-99 mg/dL A fasting glucose from 100-125 mg/dl is considered impaired (pre-diabetes). Calcium 9.0 8.4-10.2 mg/dL Bilirubin Total 0.6 0.0-1.0 mg/dL Aspartate Amino Transferase 33 5-37 U/L Alanine Aminotransferase 28 0-40 U/L Total Protein 7.0 6.5-8.0 g/dL Albumin Level 4.1 3.5-5.0 g/dL Alkaline Phosphatase 69 39-117 U/L Lipid Panel Reviewed date:09/29/2024 04:27:20 PM Interpretation: Performing Lab:[address] [id number] Notes/Report: Triglycerides 85 <150 mg/dL Desirable Triglyceride: less than 150 mg/dL Borderline High Triglyceride 150-199 mg/dL High Triglyceride: 200-499 mg/dL Very High Triglyceride: greater than or equal to 5OO mg/dL Cholesterol 139 <200 mg/dL Desirable Cholesterol: less than 200 mg/dL Borderline High Cholesterol: 200-239 mg/dL High Cholesterol: greater than 239 mg/dL LDL Cholesterol Calculated 83 <100 mg/dL Desirable LDL: less than 100 mg/dL Near Optimal/Above Optimal LDL: 110-129 mg/dL Borderline High LDL: 130-159 mg/dL High LDL: 160-189 mg/dL Very High LDL: greater than or equal to 190 mg/dL HDL Cholesterol 39 >40 mg/dL Desirable HDL: greater than 40 mg/dL Note: This HDL assay may give artificially low results in patients with liver disease. PSA,Total (Free>4and<10) Reviewed date:09/29/2024 04:28:20 PM Interpretation: Performing Lab:[address] [phone] Notes/Report: PSA,Total (Free>4and<10) 0.75 0.00-4.00 ng/mL A Free PSA was not performed: The percentage of Free PSA can be used to enhance the differentiation of prostate cancer from benign prostatic disease in subjects whose PSA levels are between 4.0 and 10.0 ng/mL. For subjects whose PSA levels are below 4.0 or above 10.0 ng/mL, the risk of prostate cancer is determined on the basis of the PSA alone. Therefore the % Free PSA is recommended only for those subjects whose PSA levels are between 4.0 and 10.0 ng/mL. PSA methodology: Gonzalez Alinity i Chemiluminescent Microparticle Immunoassay (CMIA) UA ClnCatch+Micro w/rflx Cul t Reviewed date:09/29/2024 04:42:27 PM Interpretation: Performing Lab:[facility], [address] [place] [phone] Notes/Report: Urine, Clean Catch Color Urine Yellow Appearance Urine Clear PH 6.5 5.0-9.0 Glucose Urine UA Negative Negative mg/dL Urine Blood Negative Negative Specific [place] - Urine 1.015 1.005-1.025 Urine Protein Negative Neg-Trace mg/dL Urine Ketones Negative Negative mg/dL Nitrite Urine Negative Negative Leukocyte Esterase Urine Negative Negative RBC Urine 0-2 0-2 /HPF WBC Urine 0-5 0-5 /HPF Squamous Epithelial Cell Urine 0-2 0-2 /HPF Bacteria Urine None Seen None Seen Hyaline Casts Urine 0-2 0-2 /LPF REASON FOR VISIT yearly fasting labs Encounters Encounter Location Date Provider Diagnosis Gil Estrella MD [address] [place] [address] [place] [phone] 09/29/2024 Gil Estrella Blood tests for rout ine general physical examination Z00.00 ; Hypercholesteremia E78.00 and Prostatism N40.0 Assessments Encounter Date Diagnosis (ICD Code) Assessment Notes Treatment Notes Treatment Clinical Notes Section Notes 09/29/2024 Blood tests for routine general physical examination (ICD-10 - Z00.00) 09/29/2024 Hypercholesteremia (ICD-10 - E78.00) 09/29/2024 Prostatism (ICD-10 - N40.0) Plan Of Treatment Next Appt Details Provider Name:Gil arriola, 10/12/2025 07:00:00 AM, [address] [place] [address], Suite [facility], [place], [place], [phone], Provider Name:Gil arriola, 10/26/2025 08:00:00 AM, [address] [place] [address], Suite [facility], [place], [place], [phone], Progress Notes * FERNANDEZ, KhrisDOB:[birth year] (70 yo M)Acc No.[id number]:09/29/2024 Progress Note Patient: Khris CHAMPION Provider: Brent Estrella MD :[id number] A ge:69 Y S ex:Male Date:09/29/2024 Address:[address] [place], [place] [phone] Subjective: * Chief Complaints: * 1 . Yearly fasting labs. * Medical History: Objective: * Vitals: Assessment: * Assessment: 1. B lood tests for routine general physical examination - Z00.00 (Primary) 2 .?Hypercholesteremia - E78.00 3 . P rostatism - N40.0 Plan: * Treatment: 2. H ypercholesteremia L AB: Complete Blood Count Auto Diff (Collection Date & Time - 09/29/2024 07:37 AM) L AB: Comprehensive [place]. Panel Fast (Collection Date & Time - 09/29/2024 07:37 AM) L AB: Lipid Panel (Collection Date & Time - 09/29/2024 07:37 AM) L AB: PSA,Total (Free>4and<10) (Collection Date & Time - 09/29/2024 07:37 AM) L AB: UA ClnCatch+Micro w/rflx Cult (Collection Date & Time - 09/29/2024 07:37 AM) 3. P rostatism L AB: Complete Blood Count Auto Diff (Collection Date & Time - 09/29/2024 07:37 AM) L AB: Comprehensive [place]. Panel Fast (Collection Date & Time - 09/29/2024 07:37 AM) L AB: Lipid Panel (Collection Date & Time - 09/29/2024 07:37 AM) L AB: PSA,Total (Free>4and<10) (Collection Date & Time - 09/29/2024 07:37 AM) L AB: UA ClnCatch+Micro w/rflx Cult (Collection Date & Time - 09/29/2024 07:37 AM) * * The named appointment provid er may or may not be the originator of this progress note, and it is not deemed complete until electronically signed by the appointment provider. Sign off status: Pending * Provider: Brent Estrella MD Date: 11/29/2023 Generated for Kitty reich/Arie/Fox on: 12/02/2024 02:54 PM EST
--- OUTSIDE RECORDS SUMMARY | 2024-10-13 05:00 | XMS_ITS ---
Author Organization Gil Estrella MD Address [address] [place], [place] [id number] Care Team Providers Care Lapeler Name Role Phone Gil Estrella Primary Care Provider Allergies Allergen (clinical drug ingredient) Drug/Non Drug Allergy documented on EMR Reaction Allergy Type Onset Date Status Penicillin Unknown Drug Allergy Active Results Component Value Reference Range Notes Occult Blood, Stool, Guaiac Reviewed date:10/13/2024 01:03:25 PM Interpretation:Negative Performing Lab: Notes/Report: Negative Occult Blood, Stool, Guaiac Neg Reason For Referral Reason Frequent headaches Diagnosis 1 Frequent headaches ( R51.9) Referral Organization Gil Estrella MD Referring Provider First Name Gil Referring Provider Last Name Sameer Referring Provider Speciality Internal M edicine Referred Provider Judah Beckwith Referred Provider Specialty Neurology General Notes Lis Penn 11:24:51 AM EST > info faxed , Lis Penn 10/23/2024 11:06:27 AM EST > left message for patient to call me to [facility] Referral Priority Routine Referral Appointment Date 10/24/2024 REASON FOR VISIT annual visit, c/o headaches hit his head and then 08/2024 hit head on a trailer at work Medications Medication SIG (Take, Route, Frequency, Duration) Notes Start Date End Date Status Celecoxib 200 MG 1 capsule with food Orally Once a day 01/04/2023 Not-Taking Tamsulosin HCl 0.4 MG TAKE 1 CAPSULE BY MOUTH EVERY DAY FOR 30 DAYS Active Montelukast Sodium 10 MG 1 tablet Orally Once a day Active Aspir-Low 81 MG 1 tablet Orally Once a day for 30 day(s) 05/29/2024 Active ProAir HFA 108 (90 Base) MCG/ACT 1 puff as needed Inhalation every 4 hrs Active Atorvastatin Calcium 20 MG 1 tablet Orally Once a day Active Fluticasone Propionate 50 MCG/ACT spray spray 1 spray into each nostril every day for 30 days Nasally Once a day for 90 days Active Social History Tobacco Use: Social History Observation Description Date Details (start date - stop date) Never Smoker NA - NA Tobacco Use/Smoking Question Answer Notes Patient is a nonsmoker Additional Findings: Tobacco Non-User Cu rrent non-smoker, currently using no form of tobacco Alcohol Screen Question Answer Notes Did you have a drink contain ing alcohol in the past year? Yes How often did you have a dri nk containing alcohol in the past year? Monthly or less (1 point) How many drinks did you have on a typical day when you were drinking in the past year? 1 or 2 drinks (0 point) How often did you have 6 or more drinks on one occasion in the past year? Never (0 point) Points 1 Interpretation Negative Vital Signs Blood pressure systolic 98 mm Hg 10/13/20 24 Blood pressure diastolic 60 mm Hg 024 Height 68 in 10/13/2024 Weight 160 lbs 10/13/2024 BMI 24.33 kg/m2 10/13/2024 Encounters Encounter Location Date Provider Diagnosis Gil Estrella MD [address] [place] [address] [place] [id number] 10/13/2024 Gil Estrella Asthma J45.909 ; Fide ual physical exam Z00.00 ; Recurrent headache R51.9 ; Hypercholesteremia E78.00 ; Prostatism N40.0 ; Colon cancer screening Z12.11 and Depression screening Z13.31 Assessments Encounter Date Diagnosis (ICD Code) Assessment Notes Treatment Notes Treatment Clinical Notes Section Notes 10/13/2024 Asthma (ICD-10 - J45.909) stable, will contnue current regiment 10/13/2024 Annual physical exam (ICD-10 - Z00.00) labs reviewed and discused with patient 10/13/2024 Recurrent headache (ICD-10 - R51.9) referral to neurology 10/13/2024 Hypercholesteremia (ICD-10 - E78.00) stable, will continue current regiment 10/13/2024 Prostatism (ICD-10 - N40.0) will continue to monitor 10/13/2024 Colon cancer screeni ng (ICD-10 - Z12.11) guaiac negative 10/13/2024 Depression screening (ICD-10 - Z13.31) negative screen Plan Of Treatment Medication Medication Name Sig Start Date Stop Date Notes Tamsulosin HCl 0.4 MG TAKE 1 CAPSULE BY MOUTH EVERY DAY FOR 30 DAYS Montelukast Sodium 10 MG 1 tablet Orally Once a day ProAir HFA 108 (90 Base) MCG/ACT 1 puff as needed Inhalation every 4 hrs Atorvastatin Calcium 20 MG 1 tablet Orally Once a day Fluticasone Propionate 50 MCG/ACT spray spray 1 spray into each nostril every day for 30 days Nasally Once a day for 90 days Treatment Notes Assessment Notes Asthma stable, will contnue current regiment Annual physical exam labs reviewed and d iscused with patient Recurrent headache referral to neurolog y Hypercholesteremia stable, will continu e current regiment Prostatism will continue to mon itor Colon cancer screening guaiac negative Depression screening negative screen Referrals Referral Date Details 10/13/2024 10/13/2024, Frequent headaches , Muhammed Tang Next Appt Details Follow Up: 6 Months, Reason: Provider Name:Gil arriola, 10/12/2025 07:00:00 AM, [address] [place] [address], [address], [phone], Provider Name:Gil arriola, 10/26/2025 08:00:00 AM, [address] [place] [address], Suite [facility], [place], [place], [phone], Progress Notes * FERNANDEZ, KhrisDOB:[birth year] (69 yo M)Acc No.[id number]:10/13/2024 Progress Notes Patient: Khris Rojas Provider: Brent Estrella MD :1955 A ge:69 Y S ex:Male Date:10/13/2024 Address:[address] [place], [place] [id number] Subjective: * Chief Complaints: * A nnual visitC/o headaches hit his head -2023 and then 08/2024 hit head on a trailer at work * HPI: D epression Screening: PHQ-9 L ittle interest or pleasure in doing things N ot at all, F eeling down, depressed, or hopeless N ot at all, T rouble falling or staying asleep, or sleeping too much N ot at all, F eeling tired or having little energy N ot at all, P oor appetite or overeating N ot at all, F eeling bad about yourself or that you are a failure, or have let yourself or your family down N ot at all, T rouble concentrating on things, such as reading the newspaper or watching television N ot at all, M oving or speaking so slowly that other people could have noticed; or the opposite, being so fidgety or restless that you have been moving around a lot more than usual N ot at all, T houghts that you would be better off or of hurting yourself in some way N ot at all, T otal Score 0 . I nterpretation and Intervention D epression Screening Findings N egative, F ollow-Up for Depression : review of PHQ-9 found negative result, no follow-up needed. C ommunication Needs: Communication Needs D oes the patient have a hearing impairment N o, D oes the patient have a vision impairment? N o, D oes the patient have a cognition impairment? N o. F all Risk: History H ave you had any falls with injury in the past year? N o, H ave you had two or more falls in the past year? N o. S SARY Questions: SDOH Questions I n the past year have you been worried about losing housing? N o, I n the past year have you or any family members you live with been unable to get any of the following when it was really needed? Check all that apply: N one. S ymptom(s): patient is a 69 yo male here for annual visit with review of recent labs and follow up of chronic issues. at work was walking under a trailer hit the back of head. memory not as good since his head injury. * ROS: G eneral/Constitutional: Patient denies f atigue, headache. C hange in appetite?denies. C hills d enies. F ever d enies. O phthalmologic: Blurred vision d enies. D ischarge d enies. P ain d enies. E NT: Patient denies d ecreased sense of smell, any loss of taste, sore throat. D ecreased hearing d enies. S ore throat d enies. S wollen glands?denies. E ndocrine: Cold intolerance d enies. E xcessive thirst d enies. H eat intolerance d enies. W eight loss d enies. R espiratory: Cough d enies. S hortness of breath at rest d enies. S hortness of breath with exertion d enies. W heezing d enies. C ardiovascular: Chest pain at rest d enies. C hest pain with exertion?denies. I rregular heartbeat d enies. S hortness of breath d enies. ? G astrointestinal: Abdominal pain d enies. C hange in bowel habits d enies. D iarrhea d enies. N ausea d enies. R ectal bleeding d enies. V omiting d enies . G enitourinary: Blood in urine d enies. D ifficulty urinating d enies. F requent urination d enies. M usculoskeletal: Patient denies m uscle aches. P ainful joints d enies. W eakness d enies. P eripheral Vascular: Patient denies r ed and blue toes. S kin: Dry skin d enies. I tching d enies. D enies?Mole(s), changes in moles, new moles or any lesions of concern. D enies P hotosensitivity. R jake d enies. N eurologic: Patient complaining of h as bad headaches since starting on atorvastatin. waking up 4 nights a week and sometimes can't go to work. takes excedrin and it gets better 75 %. D izziness d enies. F ainting d enies. H eadache d enies. ? * Medical History: * Surgical History: * Hospitalization/Major Diagno stic Procedure: * Family History: F ather: 88 yrs. M other: 96 yrs. 3 brother(s) , 1 sister(s) . .? Father cardiac Mother liver spleen cancer, Denies mental health/substance abuse family history. * Social History: T obacco Use: T obacco Use/Smoking P catie is a n onsmoker, A dditional Findings: Tobacco Non-User C urrent non-smoker, currently using no form of tobacco. D rugs/Alcohol: A lcohol Screen D id you have a drink containing alcohol in the past year? Y es, H ow often did you have a drink containing alcohol in the past year? M onthly or less (1 point), H ow many drinks did you have on a typical day when you were drinking in the past year? 1 or 2 drinks (0 point), H ow often did you have 6 or more drinks on one occasion in the past year? N ever (0 point), P oints 1 , I nterpretation N egative. M iscellaneous: C affeine: yes, frequency:, 1-2 cups per day. no Children. no Community involvements. no Exercise. Home smoke detector use: yes. Housing: owning. Living with: spouse. Marital status: . Occupation: weeks/months/years, works full-time. no Travel outside of the [place]. * Medications: T akingAtorvastatin Calcium 20 MG [...] * Vitals: H t: 68, Wt:160, BMI:24.33, BP:98/60. * P ast Orders: L ab:Complete Blood Count Auto Diff (Order Date - 09/29/2024) (Collection Date - 09/29/2024) Value Reference Range White Blood Count 6.9 4.8-10.8 - X10*3/uL Red Blood Count 4.37 L 4.60-5.80 - X10*6/uL Hemoglobin 14.1 14.0-18.0 - g/dl Hematocrit 39.8 L 42.0-52.0 - % Mean Corpuscular Volume 91.1 80.0-98.0 - fL Mean Corpuscular Hemoglobin 32.3 27.0-33.0 - pg Mean Corpuscular HGB Conc 35.4 31.0-36.0 - g/ dl Red Cell Distribution Width 12.3 11.0-16.0 - % Platelet Count 199 160-400 - X10*3/uL Mean Platelet Volume 8.7 L 9.4-12.4 - fL Neutrophils Percent Auto 48.6 45-73 - % Imm Gran Pct Auto 0.3 0.0-0.4 - % Lymphocytes Percent Auto 31.6 20-40 - % Monocytes Percent Auto 11.5 H 2-11 - % Eosinophils Percent Auto 7.3 H 0-4 - % Basophils Percent Auto 0.7 0-2 - % NRBC Pct Auto 0.0 0.0-0.2 - /100WBC Neutrophils Absolute Auto 3.3 2.0-8.3 - x10* 3/uL Imm Gran Abs Auto 0.02 0.00-0.03 - X10*3/uL Lymphocytes Absolute Auto 2.2 1.2-4.9 - X10* 3/uL Monocytes Absolute Auto 0.8 0.1-1.2 - X10*3/ uL Eosinophils Absolute Auto 0.5 H 0.0-0.4 - X10* 3/uL Basophils Absolute Auto 0.1 0.0-0.2 - X10*3/ uL NRBC Abs Auto 0.000 0.0-0.012 - X10*3/uL L ab:Comprehensive [place]. Panel Fast (Order Date - 09/29/2024) (Collection Date - 09/29/2024) Value Reference Range Sodium 138 135-145 - mmol/L Bilirubin Total 0.6 0.0-1.0 - mg/dL Aspartate Amino Transferase 33 5-37 - U/L Alanine Aminotransferase 28 0-40 - U/L Total Protein 7.0 6.5-8.0 - g/dL Albumin Level 4.1 3.5-5.0 - g/dL Alkaline Phosphatase 69 39-117 - U/L Potassium 4.4 3.3-5.1 - mmol/L Chloride 106 96-108 - mmol/L Carbon Dioxide 25 22-29 - mmol/L Anion Gap 11 L 12-20 - Blood Urea Nitrogen 17 H 9-16 - mg/dL Creatinine 0.89 0.5-1.4 - mg/dL Estimated Glomerular Filt Rate > 60 - Glucose Fasting 109 H 60-99 - mg/dL Calcium 9.0 8.4-10.2 - mg/dL L ab:Lipid Panel (Order Date - 09/29/2024) (Collection Date - 09/29/2024) Value Reference Range Triglycerides 85 <150 - mg/dL Cholesterol 139 <200 - mg/dL LDL Cholesterol Calculated 83 <100 - mg/dL HDL Cholesterol 39 L >40 - mg/dL L ab:PSA,Total (Free>4and<10) (Order Date - 09/29/2024) (Collection Date - 09/29/2024) Value Reference Range PSA,Total (Free>4and<10) 0.75 0.00-4.00 - ng/ mL L ab:UA ClnCatch+Micro w/rflx Cult (Order Date - 09/29/2024) (Collection Date - 09/29/2024) Value Reference Range Color Urine Yellow - Appearance Urine Clear - PH 6.5 5.0-9.0 - Glucose Urine UA Negative Negative - mg/dL Urine Blood Negative Negative - Specific [place] - Urine 1.015 1.005-1.025 - Urine Protein Negative Neg-Trace - mg/dL Urine Ketones Negative Negative - mg/dL Nitrite Urine Negative Negative - Leukocyte Esterase Urine Negative Negative - RBC Urine 0-2 0-2 - /HPF WBC Urine 0-5 0-5 - /HPF Squamous Epithelial Cell Urine 0-2 0-2 - /HP F Bacteria Urine None Seen None Seen - Hyaline Casts Urine 0-2 0-2 - /LPF * Examination: G eneral Examination: GENERAL APPEARANCE: w ell developed, well nourished, in no acute distress. HEAD: n ormocephalic, atraumatic. EYES: p upils equal, round, reactive to light and accommodation, sclera non-icteric. EARS: n ormal. ORAL CAVITY: m [place] moist. THROAT: c lear. NECK/THYROID: n randi supple, full range of motion, no cervical lymphadenopathy, no bruits. SKIN: w arm and dry, no suspicious lesions. HEART: r egular rate and rhythm, S1, S2 normal, no murmurs.? LUNGS: c lear to auscultation bilaterally. ABDOMEN: s oft, nontender, nondistended, bowel sounds present, normal, no organomegaly , no masses palpable. RECTAL EXAM: n ormal tone, no external hemorrhoids, no masses palpable, prostate normal, stool guaiac negative. MALE GENITOURINARY: c ircumcised , no testicular mass , testes descended bilaterally. EXTREMITIES: n o clubbing, cyanosis, or edema. NEUROLOGIC: n onfocal, motor strength normal upper and lower extremities, sensory exam intact. Assessment: * Assessment: 1. A nnual physical exam - Z00.00 (Primary) 2 . A sthma - J45.909 3 . R ecurrent headache - R51.9 4 . H ypercholesteremia - E78.00 5 . P rostatism - N40.0 6 .?Colon cancer screening - Z12.11 7 . D epression screening - Z13.31 Plan: * Treatment: 2. A sthma Refill Fluticasone Propionate Suspension, 50 MCG/ACT, spray spray 1 spray into each nostril every day for 30 days, Nasally, Once a day, 90 days, 3, Refills 4; C ontinue ProAir HFA Aerosol Solution, 108 (90 Base) MCG/ACT, 1 puff as needed, Inhalation, every 4 hrs; C ontinue Montelukast Sodium Tablet, 10 MG, 1 tablet, Orally, Once a day. Notes: stable, will contnue current regiment 3. R ecurrent headache Notes: referral to neurology 4. H ypercholesteremia Continue Atorvastatin Calcium Tablet, 20 MG, 1 tablet, Orally, Once a day. Notes: stable, will continue current regiment 5. P rostatism Continue Tamsulosin HCl Capsule, 0.4 MG, TAKE 1 CAPSULE BY MOUTH EVERY DAY FOR 30 DAYS. Notes: will continue to monitor 6. C olon cancer screening L AB: Occult Blood, Stool, Guaiac N egative Value Reference Range O ccult Blood, Stool, Guaiac Neg Notes: guaiac negative??7.?Depression screening? Notes: negative screen??8.?Others? Referral To:Sheeba No??Neurology ?Reason:recurrent headaches * Procedure Codes: 8 2270 TEST FOR BLOOD, FECES * Follow Up: 6 Months * * Sign off status: Completed true * Provider: Brent Estrella MD Date: 12/14/2023 Generated for Kitty reich/Arie/Fox on: 12/02/2024 02:55 PM EST History and Physical Notes * HPI (History of Present Illness) Category Sub-Category Detail Notes Category Not es Symptom(s) patient is a 69 yo male here for annual visit with review of recent labs and follow up of chronic issues. at work was walking under a trailer hit the back of head. memory not as good since his head injury Depression Screening PHQ-9 Little inte rest or pleasure in doing things: Not at all Feeling down, depressed, or hopeless: No t at all Trouble falling or staying asleep, or sl eeping too much: Not at all Feeling tired or having little energy: N ot at all Poor appetite or overeating: Not at all Feeling bad about yourself o r that you are a failure, or have let yourself or your family down: Not at all Trouble concentrating on thi ngs, such as reading the newspaper or watching television: Not at all Moving or speaking so slowly that other people could have noticed; or the opposite, being so fidgety or restless that you have been moving around a lot more than usual: Not at all Thoughts that you would be b emiliana off or of hurting yourself in some way: Not at all Total Score: 0 Interpretation and Intervention Depression Karishma reid Findings: Negative Follow-Up for Depression: : review of PH Q-9 found negative result, no follow-up needed SDOH Questions SDOH Questions In the past year have you been worried about losing housing?: No In the past year have you or any family members you live with been unable to get any of the following when it was really needed? Check all that apply:: None Fall Risk History Have you had any falls with injury i n the past year?: No Have you had two or more falls in the st year?: No Communication Needs Communication Needs Does the patient have a hearing impairment: No Does the patient have a vision impairmen t?: No Does the patient have a cognition impair ment?: No Examination Category Sub-Category Detail Notes Category Not es General Examination GENERAL APPEARANCE: well dev eloped, well nourished, in no acute distress HEAD: normocephalic, atrau matic EYES: pupils equal, round, reactive to light and accommodation, sclera non-icteric EARS: normal THROAT: clear NECK/THYROID: neck supple, full ra nge of motion, no cervical lymphadenopathy, no bruits HEART: regular rate and rhy thm, S1, S2 normal, no murmurs LUNGS: clear to auscultatio n bilaterally ABDOMEN: soft, nontender, non distended, bowel sounds present, normal, no organomegaly , no masses palpable NEUROLOGIC: nonfocal, motor stre ngth normal upper and lower extremities, sensory exam intact SKIN: warm and dry, no rhona picious lesions EXTREMITIES: no clubbing, cyanosi s, or edema MALE GENITOURINARY: circumcised , no marlene ticular mass , testes descended bilaterally RECTAL EXAM: normal tone, no exte rnal hemorrhoids, no masses palpable, prostate normal, stool guaiac negative ORAL CAVITY: mucosa moist Consultation Request Notes Referral Date Referring Provider Referred Provider Not es 10/13/2024 Gil Estrella, Judah Prado t headaches
--- OUTSIDE RECORDS SUMMARY | 2025-04-13 02:15 | XMS_ITS ---
Author Organization Gil Estrella MD Address [address] [place], [place] [phone] Care Team Providers Care See Supervisor Name Role Phone Gil Estrella Primary Care Provider Results Component Value Reference Range Notes Liver Panel Reviewed date:04/13/2025 06:53:11 PM Interpretation: Performing Lab:[facility], [address] [place] [phone] Notes/Report: Bilirubin Total 0.5 0.0-1.0 mg/dL Bilirubin Direct 0.2 0.0-0.5 mg/dL Aspartate Amino Transferase 27 5-37 U/L Alanine Aminotransferase 27 0-40 U/L Total Protein 7.2 6.5-8.0 g/dL Albumin Level 4.2 3.5-5.0 g/dL Alkaline Phosphatase 62 39-117 U/L Lipid Panel with Reflex Reviewed date:04/13/2025 06:52:48 PM Interpretation: Performing Lab:[facility], [address] [place] [phone] Notes/Report: Triglycerides 118 <150 mg/dL Desirable Triglyceride: less than 150 mg/dL Borderline High Triglyceride 150-199 mg/dL High Triglyceride: 200-499 mg/dL Very High Triglyceride: greater than or equal to 5OO mg/dL Cholesterol 191 <200 mg/dL Desirable Cholesterol: less than 200 mg/dL Borderline High Cholesterol: 200-239 mg/dL High Cholesterol: greater than 239 mg/dL LDL Cholesterol Calculated 127 <100 mg/dL Desirable LDL: less than 100 mg/dL Near Optimal/Above Optimal LDL: 110-129 mg/dL Borderline High LDL: 130-159 mg/dL High LDL: 160-189 mg/dL Very High LDL: greater than or equal to 190 mg/dL HDL Cholesterol 41 >40 mg/dL Desirable HDL: greater than 40 mg/dL Note: This HDL assay may give artificially low results in patients with liver disease. REASON FOR VISIT fasting lipids Encounters Encounter Location Date Provider Diagnosis Gil Estrella MD [address] [place] [address] [address] [place], [place] [phone] 04/13/2025 Gil Estrella Hypercholesteremia E 78.00 Assessments Encounter Date Diagnosis (ICD Code) Assessment Notes Treatment Notes Treatment Clinical Notes Section Notes 04/13/2025 Hypercholesteremia (ICD-10 - E78.00) Plan Of Treatment Next Appt Details Provider Name:Gil arriola, 10/12/2025 07:00:00 AM, [address] [place] [address], Suite [facility], [place], [place], [phone], Provider Name:Gil arriola, 10/26/2025 08:00:00 AM, [address] [place] [address], [address], [place], [place], [phone], Progress Notes * Khris FERNANDEZDOB:[birth year] (70 yo M)Acc No.[id number]:04/13/2025 Progress Note Patient: Khris CHAMPION Provider: Brent Estrella MD :1955 A ge:69 Y S ex:Male Date:04/13/2025 Address:[address] [place], [place] [phone] Subjective: * Chief Complaints: * 1 . Fasting lipids. * Medical History: Objective: * Vitals: Assessment: * Assessment: 1. H ypercholesteremia - E78.00 (Primary) Plan: * Treatment: * Procedure Codes: 3 6415 VENIPUNCT, ROUTINE* * * The named appointment provid er may or may not be the originator of this progress note, and it is not deemed complete until electronically signed by the appointment provider. Sign off status: Pending * Provider: Brent Estrella MD Date: 0 04/13/2025 Generated for Kitty reich/Arie/Fox on: 1 12/02/2024 02:55 PM EST
--- OUTSIDE RECORDS SUMMARY | 2025-04-20 05:00 | XMS_ITS ---
Author Organization Gil Estrella MD Address [address] [place] [phone] Care Team Providers Care Courtesy Clerk Name Role Phone Gil Estrella Primary Care Provider Allergies Allergen (clinical drug ingredient) Drug/Non Drug Allergy documented on EMR Reaction Allergy Type Onset Date Status Penicillin Unknown Drug Allergy Active REASON FOR VISIT 6 months Medications Medication SIG (Take, Route, Frequency, Duration) Notes Start Date End Date Status Aspir-Low 81 MG 1 tablet Orally Once a day for 30 day(s) 05/29/2024 Active Metoprolol Tartrate 25 MG 0.5 tab Orally once a day Active Celecoxib 200 MG 1 capsule with food Orally Once a day 01/04/2023 Not-Taking Montelukast Sodium 10 MG 1 tablet Orally Once a day Active ProAir HFA 108 (90 Base) MCG/ACT 1 puff as needed Inhalation every 4 hrs Active Fluticasone Propionate 50 MCG/ACT spray spray 1 spray into each nostril every day for 30 days Nasally Once a day for 90 days Active Vital Signs Blood pressure systolic 94 mm Hg 04/20/20 25 Blood pressure diastolic 52 mm Hg 025 Height 68 in 04/20/2025 Weight 158 lbs 04/20/2025 BMI 24.02 kg/m2 04/20/2025 Encounters Encounter Location Date Provider Diagnosis Gil Estrella MD [address] [place] [phone] 04/20/2025 Gil Estrella Hypercholesteremia E 78.00 ; Prostatism N40.0 and Arteriosclerotic coronary artery disease I25.10 Assessments Encounter Date Diagnosis (ICD Code) Assessment Notes Treatment Notes Treatment Clinical Notes Section Notes 04/20/2025 Hypercholesteremia (ICD-10 - E78.00) since he has athersclerosis he should be on meds, will continue to monitor 04/20/2025 Prostatism (ICD-10 - N40.0) has side effects of all the meds, followed by Urology 04/20/2025 Arteriosclerotic coronary artery disease (ICD-10 - I25.10) have him speak to cardiology about other meds Plan Of Treatment Treatment Notes Assessment Notes Hypercholesteremia since he has athersc lerosis he should be on meds, will continue to monitor Prostatism has side effects of all the meds, followed by Urology Arteriosclerotic coronary artery disease have him speak to cardiology about other meds Next Appt Details Provider Name:Gil arriola, 10/12/2025 07:00:00 AM, [facility], [address], [place], [phone], Provider Name:Gil arriola, 10/26/2025 08:00:00 AM, [address] [facility], [address], [place], [place], [phone], Progress Notes * Khris FERNANDEZDOB:[birth year] (69 yo M)Acc No.[id number]:04/20/2025 Progress Notes Patient: Khris CHAMPION Provider: Brent Estrella MD :1955 A ge:69 Y S ex:Male Date:04/20/2025 Address:[address] [place], [place] [phone] Subjective: * Chief Complaints: * 6 months * HPI: S ymptom(s): patient is a 69 yo male here for 6 month follow up visit/ has been seen by cardiology. started metoprolol and lowered pulse/ stopped his atorvastatin as his left arm would not be able to lift. quit taking pills and eye twitching. had nocturia and stopped afluvosin. * ROS: G eneral/Constitutional: Denies C hills. D enies F atigue. D enies F ever. D enies H eadache. E NT: Patient denies d ecreased sense of smell, any loss of taste, sore throat. D enies S ore throat. [...] Hospitalization/Major Diagno stic Procedure: * Medications: T akingMetoprolol Tartrate 25 MG Tablet 0.5 tab Orally once a day Aspir-Low 81 MG Tablet Delayed Release 1 tablet Orally Once a day Fluticasone Propionate 50 MCG/ACT Suspension spray spray 1 spray into each nostril every day for 30 days Nasally Once a day ProAir HFA 108 (90 Base) MCG/ACT Aerosol Solution 1 puff as needed Inhalation every 4 hrs Montelukast Sodium 10 MG Tablet 1 tablet Orally Once a day Taking Metoprolol Tartrate 25 MG Tablet 0.5 tab Orally once a day Taking Aspir-Low 81 MG Tablet Delayed Release 1 tablet Orally Once a day Taking Fluticasone Propionate 50 MCG/ACT Suspension spray spray 1 spray into each nostril every day for 30 days Nasally Once a day Taking ProAir HFA 108 (90 Base) MCG/ACT Aerosol Solution 1 puff as needed Inhalation every 4 hrs Taking Montelukast Sodium 10 MG Tablet 1 tablet Orally Once a day Not-Taking/PRNCelecoxib 200 MG Capsule 1 capsule with food Orally Once a day Not-Taking/PRN Celecoxib 200 MG Capsule 1 capsule with food Orally Once a day DiscontinuedAtorvastatin Calcium 20 MG Tablet 1 tablet Orally Once a day Tamsulosin HCl 0.4 MG Capsule TAKE 1 CAPSULE BY MOUTH EVERY DAY FOR 30 DAYS Discontinued Atorvastatin Calcium 20 MG Tablet 1 tablet Orally Once a day Discontinued Tamsulosin HCl 0.4 MG Capsule TAKE 1 CAPSULE BY MOUTH EVERY DAY FOR 30 DAYS * Allergies: P enicillinyes[Allergies Verified] Objective: * Vitals: H t: 68, Wt: 158, BMI:24.02, BP:94/52, Wt-k.67. * P ast Orders: L ab:Liver Panel (Order Date - 04/13/2025) (Collection Date & Time - 04/13/2025 07:15 AM) Value Reference Range Bilirubin Total 0.5 0.0-1.0 - mg/dL Bilirubin Direct 0.2 0.0-0.5 - mg/dL Aspartate Amino Transferase 27 5-37 - U/L Alanine Aminotransferase 27 0-40 - U/L Total Protein 7.2 6.5-8.0 - g/dL Albumin Level 4.2 3.5-5.0 - g/dL Alkaline Phosphatase 62 39-117 - U/L L ab:Lipid Panel with Reflex (Order Date - 04/13/2025) (Collection Date & Time - 04/13/2025 07:15 AM) Value Reference Range Triglycerides 118 <150 - mg/dL Cholesterol 191 <200 - mg/dL LDL Cholesterol Calculated 127 H <100 - mg/dL HDL Cholesterol 41 >40 - mg/dL * Examination: G eneral Examination: GENERAL APPEARANCE: a lert, well hydrated, in no distress.? HEAD: n ormocephalic. SKIN: g ood turgor. HEART: n o murmurs, rubs, gallops, regular rate and rhythm.? LUNGS: n o wheezes, rales, rhonchi, good air movement, clear to auscultation bilaterally. Assessment: * Assessment: 1. H ypercholesteremia - E78.00 (Primary) 2 . P rostatism - N40.0 ? 3 . A rteriosclerotic coronary artery disease - I25.10 Plan: * Treatment: 2. P rostatism Notes: has side effects of all the meds, followed by Urology 3. A rteriosclerotic coronary artery disease Notes: have him speak to cardiology about other meds * Procedure Codes: * * Sign off status: Completed true * Provider: Brent Estrella MD Date: 0 04/20/2025 Generated for Kitty reich/Arie/Rodyitting on: 1 12/02/2024 02:54 PM EST History and Physical Notes * HPI (History of Present Illness) Category Sub-Category Detail Notes Category Not es Symptom(s) patient is a 69 yo male here for 6 month follow up visit/ has been seen by cardiology. started metoprolol and lowered pulse/ stopped his atorvastatin as his left arm would not be able to lift. quit taking pills and eye twitching. had nocturia and stopped afluvosin Examination Category Sub-Category Detail Notes Category Not es General Examination GENERAL APPEARANCE: alert, w ell hydrated, in no distress HEAD: normocephalic HEART: no murmurs, rubs, ga llops, regular rate and rhythm LUNGS: no wheezes, rales, r honchi, good air movement, clear to auscultation bilaterally SKIN: good turgor
--- OUTSIDE RECORDS SUMMARY | 2025-09-27 10:00 | XMS_ITS ---
Author Organization Gil Estrella MD Address [address] [place], [place] [id number] Care Team Providers Care Resourcing Advisor Name Role Phone Gil Estrella Primary Care Provider [phone] Allergies Allergen (clinical drug ingredient) Drug/Non Drug Allergy documented on EMR Reaction Allergy Type Onset Date Status Penicillin Unknown Drug Allergy Active REASON FOR VISIT 8d congestion, cough, has not tested for covid, Video , Will test for Covid before appointment Medications Medication SIG (Take, Route, Frequency, Duration) Notes Start Date End Date Status ProAir HFA 108 (90 Base) MCG/ACT 1 puff as needed Inhalation every 4 hrs Active Montelukast Sodium 10 MG 1 tablet Orally Once a day Not-Taking Fluticasone Propionate 50 MCG/ACT spray spray 1 spray into each nostril every day for 30 days Nasally Once a day for 90 days Active Metoprolol Tartrate 25 MG 0.5 tab Orally once a day Active Aspir-Low 81 MG 1 tablet Orally Once a day for 30 day(s) 05/29/2024 Active Celecoxib 200 MG 1 capsule with food Orally Once a day 01/04/2023 Not-Taking Zithromax Z-Mark 250 MG 2 tablet on the day, then 1 tablet daily for 4 days Orally Once a day for 5 day(s) 09/27/2025 Active Zetia 10 MG 1 tablet Orally Once a day Active Vital Signs Blood pressure systolic 115 mm Hg 09/27/20 25 Blood pressure diastolic 68 mm Hg 025 Height 68 in 09/27/2025 Weight 58 lbs 09/27/2025 BMI 8.82 kg/m2 09/27/2025 weight is 158 at home BP 115 /68 Encounters Encounter Location Date Provider Diagnosis Gil Estrella MD [address] [place] [address] [place] [phone] 09/27/2025 Gil Estrella Bronchitis J40 Assessments Encounter Date Diagnosis (ICD Code) Assessment Notes Treatment Notes Treatment Clinical Notes Section Notes 09/27/2025 Bronchitis (ICD-10 - J40) patient verbalized understanding of medication and directions for use Plan Of Treatment Medication Medication Name Sig Start Date Stop Date Notes Zithromax Z-Mark 250 MG 2 tablet on the f irst day, then 1 tablet daily for 4 days Orally Once a day for 5 day(s) 09/27/2025 Treatment Notes Assessment Notes Bronchitis patient verbalized u nderstanding of medication and directions for use Next Appt Details Provider Name:Gil arriola, 10/12/2025 07:00:00 AM, [address] [place] [address], [address], [phone], Provider Name:Gil arriola, 10/26/2025 08:00:00 AM, [address] [place] [address], [place] [address], [place], [place], [phone], Progress Notes * Khris FERNANDEZDOB:[birth year] (70 yo M)Acc No.[id number]:09/27/2025 Patient: Khris CHAMPION Provider: Brent Estrella MD :1955 A ge:70 Y S ex:Male Date:09/27/2025 Address:[address] [place], [place] [phone] Subjective: * Chief Complaints: * 1 . 8d congestion, cough, has not tested for covid. 2. Video [phone]. 3. Will test for Covid before appointment. * HPI: S ymptom(s): patient is a 70 yo male video telehealth visit, with 8 days of congestion and cough. sinuses headache. for 8 days. is getting a little better. mucinex is helping. coughing a lot. gets coughing jags. aches all over, chilly. Telehealth L ocation of provider rendering services: [address], [address], L ocation of patient: a t address listed in demographics for today's visit, P atient identification confirmed using: BRAYDEN French ame, T elehealth method: V ideo conference where patient is visible to the provider of care, C onsent: P atient verbally consented to treatment, Patient verbally consented to billing insurance company, Patient informed of any privacy concerns related to method of visit, T otal time spend talking with patient (minutes) 1 8. * ROS: G eneral/Constitutional: Admits Gretta hills. A dmits F atigue. D enies F ever. D enies H eadache. E NT: Denies S ore throat. R espiratory: Admits Gretta ough. D enies S hortness of breath at rest. D enies S hortness of breath with exertion. A dmits S putum production. D enies W heezing. G astrointestinal: Denies D iarrhea. D enies N ausea. * Medical History: C olonoscopy 2021 repeat 10 years. * Medications: T aking Zetia 10 MG Tablet 1 tablet Orally Once a day , Taking Metoprolol Tartrate 25 MG Tablet 0.5 tab Orally once a day , Taking Aspir-Low 81 MG Tablet Delayed Release 1 tablet Orally Once a day , Taking Fluticasone Propionate 50 MCG/ACT Suspension spray spray 1 spray into each nostril every day for 30 days Nasally Once a day , Taking ProAir HFA 108 (90 Base) MCG/ACT Aerosol Solution 1 puff as needed Inhalation every 4 hrs , Not-Taking/PRN Montelukast Sodium 10 MG Tablet 1 tablet Orally Once a day , Not-Taking/PRN Celecoxib 200 MG Capsule 1 capsule with food Orally Once a day , Medication List reviewed and reconciled with the patient * Allergies: P enicillin. Objective: * Vitals: H t: 68, Wt: 58, BMI:8.82, BP:115/68, Wt-k.31. weight is 158 at home BP 115/68. * Examination: G eneral Examination: GENERAL APPEARANCE: a lert, well hydrated, in no distress.? Assessment: * Assessment: 1. B devi - J40 (Primary) Plan: * Treatment: * Procedure Codes: 3 6415 VENIPUNCT, ROUTINE*, Modifiers: 95 * * The named appointment provid er may or may not be the originator of this progress note, and it is not deemed complete until electronically signed by the appointment provider. Sign off status: Pending * Provider: Brent Estrella MD Date: 11/27/2024 Generated for Kitty reich/Arie/Fox on: 12/02/2024 02:55 PM EST History and Physical Notes * HPI (History of Present Illness) Category Sub-Category Detail Notes Category Not es Symptom(s) Telehealth Location of prov ider rendering services:: [address], [address] Location of patient:: at address listed in demographics for today's visit Patient identification confirmed using:: Name, Telehealth method:: Video co nference where patient is visible to the provider of care Consent:: Patient verbally c onsented to treatment, Patient verbally consented to billing insurance company, Patient informed of any privacy concerns related to method of visit Total time spend talking with patient (m inutes): 18 Examination Category Sub-Category Detail Notes Category Not es General Examination GENERAL APPEARANCE: alert, w ell hydrated, in no distress
--- OUTSIDE RECORDS SUMMARY | 2025-09-28 04:44 | XMS_ITS ---
Author Organization Gil Estrella MD Address [address] [facility] [address] [place] [phone] Care Team Providers Care Special Education Teachers Name Role Phone Gil Estrella Primary Care Provider REASON FOR VISIT med issue Encounters Encounter Location Date Provider Diagnosis Gil Estrella MD [address] [place] [address] [place] [phone] 09/28/2025 Gil Estrella Plan Of Treatment Next Appt Details Provider Name:Gil Recio ier, 10/12/2025 07:00:00 AM, [address] [place] [address], [place] [address], [place], [place], [phone], Provider Name:Gil Recio ier, 10/26/2025 08:00:00 AM, [address] [place] [address], [address], [phone], Progress Notes * Khris FERNANDEZDOB:[birth year] (70 yo M)Acc No.[id number]:09/28/2025 Patient: Khris CHAMPION :1955 A ge:70 Y S ex:Male Address:[address] [place] [address], [address] * true * Date: Generated for Printi ng/Faxing/eTransmitting on: 12/02/2024 02:55 PM EST
--- OUTSIDE RECORDS SUMMARY | 2025-10-02 14:56 | XMS_ITS | Patient Health Record ---
Author Organization Gil Estrella MD Address [address] [place], [place] [id number] Care Team Providers Care Lifter/Driver Name Role Phone Gil Estrella Primary Care Provider Allergies Allergen (clinical drug ingredient) Drug/Non Drug Allergy documented on EMR Reaction Allergy Type Onset Date Status Penicillin Unknown Drug Allergy Active Results Component Value Reference Range Notes Occult Blood, Stool, Guaiac Reviewed date:10/13/2024 01:03:25 PM Interpretation:Negative Performing Lab: Notes/Report: Negative Occult Blood, Stool, Guaiac Neg Hold Gold Reviewed date:04/13/2025 06:52:37 PM Interpretation: Performing Lab:[facility], [address] [place] [phone] Notes/Report: Hold Gold See Note Specimen held untested for 24 hours; Call to request Chemistry testing. Liver Panel Reviewed date:04/13/2025 06:53:11 PM Interpretation: Performing Lab:[facility], [address] [place] [phone] Notes/Report: Bilirubin Total 0.5 0.0-1.0 mg/dL Bilirubin Direct 0.2 0.0-0.5 mg/dL Aspartate Amino Transferase 27 5-37 U/L Alanine Aminotransferase 27 0-40 U/L Total Protein 7.2 6.5-8.0 g/dL Albumin Level 4.2 3.5-5.0 g/dL Alkaline Phosphatase 62 39-117 U/L Lipid Panel with Reflex Reviewed date:04/13/2025 06:52:48 PM Interpretation: Performing Lab:[address], [place] [id number] Notes/Report: Triglycerides 118 <150 mg/dL Desirable Triglyceride: [...] low results in patients with liver disease. Reason For Referral Reason Frequent headaches Diagnosis 1 Frequent headaches ( R51.9) Referral Organization Gil Estrella MD Referring Provider First Name Gil Referring Provider Last Name Sameer Referring Provider Speciality Internal M edicine Referred Provider Judah Beckwith Referred Provider Specialty Neurology General Notes Lis Penn 11:24:51 AM EST > info faxed Fili Annette 10/23/2024 11:06:27 AM EST > left message for patient to call me to [facility] appt Referral Priority Routine Referral Appointment Date [...] Once a day for 90 days Active Celecoxib 200 MG 1 capsule with food Orally Once a day 01/04/2023 Not-Taking Zithromax Z-Mark 250 MG 2 tablet on the irst day, then 1 tablet daily for 4 days Orally Once a day for 5 day(s) 09/27/2025 Active Metoprolol Tartrate 25 MG 0.5 tab Orally once a day Active Aspir-Low 81 MG 1 tablet Orally Once a day for 30 day(s) 05/29/2024 Active Zetia 10 MG 1 tablet Orally Once a day Active Immunizations Vaccine Route Administration Date Status [...] Problem Status W/U Status Risk Notes Problem 43248324 Prostatism (N40.0) Active confirmed Problem 778102640 Other ascites (R18.8) Active confirmed Problem Asthma (752888124) Asthma (J45.909) Active conf irmed Problem Sjogrens syndrome (21012634) Sjogrens syndrome (M35.00) Active confirmed Problem hypercholesterolemia (disorder) (60472185) Hypercholesteremia (E78.00) Active confirmed Problem Plain X-ray of chest abnormal (finding) (3405665800) Abnormal chest xray (R93.89) Active confirmed Problem 95033104 Arteriosclerotic coronary artery disease (I25.10) Active confirmed Problem 377394279 Abnormal chest x-ray (R93.89) Active confirmed Vital Signs Blood pressure diastolic 68 mm Hg 09/27/2025 jalil ght is 158 at home BP 115/68 Height 68 in 09/27/2025 weight is 158 a t home BP 115/68 Blood pressure systolic 115 mm Hg 09/27/2025 weig ht is 158 at home BP 115/68 Weight 58 lbs 09/27/2025 weight is 158 a t home BP 115/68 BMI 8.82 kg/m2 09/27/2025 weight is 158 a t home BP 115/68 Encounters Encounter Location Date Provider Diagnosis Gil Estrella MD [address] [place] [id number] 04/13/2025 Gil Estrella Hypercholesteremia E 78.00 Gil Estrella MD [address] [place] [id number] 09/27/2025 Gil Estrella Bronchitis J40 Gil Estrella MD [address] [place] [id number] 10/13/2024 Gil Estrella Asthma J45.909 ; Fide ua physical exam Z00.00 ; Recurrent headache R51.9 ; Hypercholesteremia E78.00 ; Prostatism N40.0 ; Colon cancer screening Z12.11 and Depression screening Z13.31 Gil Estrella MD [address] [id number] 04/20/2025 Gil Estrella Hypercholesteremia E 78.00 ; Prostatism N40.0 and Arteriosclerotic coronary artery disease I25.10 Gil Estrella MD [address] [place] [address] [address] [id number] 09/28/2025 Gil Estrella Assessments Encounter Date Diagnosis (ICD Code) Assessment Notes Treatment Notes Treatment Clinical Notes Section Notes 04/13/2025 Hypercholesteremia (ICD-10 - E78.00) 09/27/2025 Bronchitis (ICD-10 - J40) patient verbalized understanding of medication and directions for use 10/13/2024 Asthma (ICD-10 - J45.909) stable, will contnue current regiment 10/13/2024 Annual physical exam (ICD-10 - Z00.00) labs reviewed and discused with patient 04/20/2025 Hypercholesteremia (ICD-10 - E78.00) since he has athersclerosis he should be on meds, will continue to monitor 10/13/2024 Recurrent headache (ICD-10 - R51.9) referral to neurology 04/20/2025 Prostatism (ICD-10 - N40.0) has side effects of all the meds, followed by Urology 10/13/2024 Hypercholesteremia (ICD-10 - E78.00) stable, will continue current regiment 04/20/2025 Arteriosclerotic coronary artery disease (ICD-10 - I25.10) have him speak to cardiology about other meds 10/13/2024 Prostatism (ICD-10 - N40.0) will continue to monitor 10/13/2024 Colon cancer screening (ICD-10 - Z12.11) guaiac negative 10/13/2024 Depression screening (ICD-10 - Z13.31) negative screen Plan Of Treatment Pending Test Test Name Order Date XR CHEST 2 VIEW PA & LAT 11/26/2023 US ABD 11/26/2023 CA echo transthoracic complete CT chest wo con 12/07/2023 CT chest wo con 12/02/2023 RT pulmonary function test 05/29/2024 Next Appt Details Provider Name:Gil Recio ier, 10/12/2025 07:00:00 AM, [address] [place] [address], [address], [phone], Provider Name:Gil Recio ier, 10/26/2025 08:00:00 AM, [address] [place] [address], [place] [address], [place], [place], [phone], Insurance Providers Payer Name Payer Address Payer Phone Subscriber Number Group Number Insured Name Patient Relationship to Insured Coverage Start Date Coverage End Date [employer] [address] [place], [place] [id number] Khris Carter Self - patient is the insured Medical (General) History Medical History History ICD Code colonoscopy 2021 repeat 10 years
== END ==
LOC: HO.SL 11:15
PROVIDERS: PCP Internal Medicine; Visit Provider Nurse Practitioner Family
DX: G47.33 Obstructive sleep apnea (adult) (pediatric) (principal); R35.1 Nocturia; R40.0 Somnolence; R06.83 Snoring
CPT/HCPCS: 95806

== ENCOUNTER → 2025-10-02 11:23 | Outpatient (BNV) | payer BC, SELFPAY | PROVIDERS: PCP Internal Medicine; Visit Provider Psychiatry & Neurology Neurology | DX: G47.33 Obstructive sleep apnea (adult) (pediatric) (principal) | CPT/HCPCS: 95806 ==

== ENCOUNTER 2025-10-12 10:56 | Outpatient (REF) | payer BC, SELFPAY ==
[2025-10-12 10:59] LABS: MANUAL DIFF FLAG NO
[2025-10-12 11:17] LABS: Hematocrit 42.4 % (42.0-52.0); Hemoglobin 14.4 g/dl (14.0-18.0); Imm Gran Abs Auto 0.02 X10*3/uL (0.00-0.03); Imm Gran Pct Auto 0.3 % (0.0-0.4); Lymphocytes Absolute Auto 2.7 X10*3/uL (1.2-4.9); Mean Corpuscular HGB Conc 34.0 g/dl (31.0-36.0); Mean Corpuscular Hemoglobin 31.6 pg (27.0-33.0); Mean Corpuscular Volume 93.0 fL (80.0-98.0); NRBC Abs Auto 0.000 X10*3/uL (0.0-0.012); NRBC Pct Auto 0.0 /100WBC (0.0-0.2); Platelet Count 238 X10*3/uL (160-400); Red Blood Count 4.56 X10*6/uL (4.60-5.80); White Blood Count 7.7 X10*3/uL (4.8-10.8)
[2025-10-12 11:28] LABS: Appearance Urine Clear; Glucose Urine UA Negative (Negative); PH 5.5 (5.0-9.0); Specific Gravity - Urine 1.020 (1.005-1.025)
[2025-10-12 12:07] LABS: Alanine Aminotransferase 34 U/L (0-40); Albumin Level 4.4 g/dL (3.5-5.0); Alkaline Phosphatase 66 U/L (39-117); Anion Gap 11 (12-20); Aspartate Amino Transferase 30 U/L (5-37); Blood Urea Nitrogen 15 mg/dL (9-16); Calcium 9.0 mg/dL (8.4-10.2); Carbon Dioxide 26 mmol/L (22-29); Chloride 108 mmol/L (96-108); Cholesterol 195 mg/dL (<200); Estimated Glomerular Filt Rate > 60; HDL Cholesterol 39 mg/dL (>40); Potassium 4.1 mmol/L (3.3-5.1); Sodium 141 mmol/L (135-145); Total Protein 7.4 g/dL (6.5-8.0); Triglycerides 148 mg/dL (<150)
[2025-10-12 13:36] LABS: PSA,Total (Free>4and<10) 0.92 ng/mL (0.00-4.00)
== END 2025-10-12 10:57 | disposition home or self-care (01) ==
LOC: HO.LNP 10:56
PROVIDERS: Visit Provider Internal Medicine
DX: Z00.00 Encounter for general adult medical examination without abnormal findings (principal); Z12.5 Encounter for screening for malignant neoplasm of prostate; E78.00 Pure hypercholesterolemia, unspecified; N40.0 Benign prostatic hyperplasia without lower urinary tract symptoms
CPT/HCPCS: 80053; 80061; 81001; 84153; 85025